=== PATIENT | female | born 1985 | race Caucasian/White ===

== ENCOUNTER 2024-10-08 09:26 | Outpatient (CLI) | payer OTHER, SELFPAY ==
--- NOTE | ~2024-10-08 | XR_ITS ---
Left Shoulder Technique: AP and scapular Y views were obtained. Clinical History: Pain Findings: No fracture or dislocation is seen. Osseous alignment is anatomic. The glenohumeral and acr omioclavicular joint spaces are preserved. Soft tissues are unremarkable. Impression: Unremarkable left shoulder radiographs. Reviewed, dictated and finalized at [facility]. ATOR EQUIPMENT TESTER Impression: Unremarkable left shoulder radiographs.
--- NOTE | ~2024-10-08 | XR_ITS ---
Right Shoulder Technique: AP and scapular Y views were obtained. Clinical History: Pain Findings: No fracture or dislocation is seen. Osseous alignment is anatomic. The glenohumeral and acr omioclavicular joint spaces are preserved. Soft tissues are unremarkable. Impression: Unremarkable right shoulder radiographs. Reviewed, dictated and finalized at [facility]. E BUILDER Impression: Unremarkable right shoulder radiographs.
[2024-10-08 19:20] LABS: Hematocrit 45.6 % (37.0-47.0); Hemoglobin 14.5 g/dL (12.0-15.0); Mean Corpuscular HGB Conc 31.8 g/dl (32-36); Mean Corpuscular Hemoglobin 30.2 pg (26-34); Platelet Count Result 181 k/mm3 (150-375); Red Cell Distribution Width 12.4 % (11.5-14.5); White Blood Count 5.8 K/mm3 (4.5-10.0)
[2024-10-08 19:52] LABS: Erythrocyte Sedimentation Rate 5 mm/hr (0-20)
[2024-10-08 20:43] LABS: Alanine Aminotransferase 15 U/L (6-35); Albumin Level 5.2 g/dL (3.5-5.1); Alkaline Phosphatase 55 U/L (38-126); Anion Gap 8 mmol/L (4-12); Aspartate Amino Transferase 30 U/L (14-36); Bilirubin,Total 0.8 mg/dL (0.2-1.3); Blood Urea Nitrogen 16 mg/dL (7-17); Calcium 10.7 mg/dL (8.4-10.2); Carbon Dioxide 27 mmol/L (22-30); Chloride 104 mmol/L (98-107); Cholesterol 206 mg/dL (0-200); Estimated Glomerular Filt Rate > 60; Glucose 82 mg/dL (65-110); HDL Direct 85 mg/dL; Potassium 4.5 mmol/L (3.4-5.0); Sodium 139 mmol/L (137-145); Triglycerides 68 mg/dL (<150); Uric Acid 5.1 mg/dL (2.5-7.5)
[2024-10-08 20:54] LABS: LDL Cholesterol Direct 91 mg/dL
[2024-10-08 21:11] LABS: Thyroid Stimulating Hormone 0.848 uIU/mL (0.465-4.680)
[2024-10-10 04:04] LABS: ANA Cascade Screen NEGATIVE (NEGATIVE)
== END 2024-10-08 09:27 | disposition home or self-care (01) ==
LOC: ANHBWCLAB 09:31
PROVIDERS: PCP Nurse Practitioner Adult Health; Visit Provider Nurse Practitioner Adult Health
DX: M25.511 Pain in right shoulder (principal); Z13.9 Encounter for screening, unspecified; M25.50 Pain in unspecified joint
CPT/HCPCS: 36415; 73030; 80053; 80061; 84443; 84550; 85027; 85652; 86038; 86225; 86235; 86364

== ENCOUNTER 2024-10-16 07:58 | Outpatient (CLI) | payer OTHER, SELFPAY ==
[2024-10-16 09:13] LABS: Vitamin D 25 Hydroxy 30.3 ng/mL
--- OUTSIDE RECORDS SUMMARY | 2024-10-23 01:19 | XMS_ITS | Clinical Summary ---
Author Organization [facility] Address [address] [place] [address]. [place], [place] [id number] [place] [address] Care Team Providers Care Painting Technician Name Role Phone Marley Mendoza MAI Primary Care Provider [phone] Allergies Active Allergy Reactions Criticality Noted Date Comments Latex Rash Medium 10/30/2019 Medications Multiple Vitamins-Mineral s (MULTIVITAMIN ADULT OR) daily. Active cetirizine 10 MG tablet Take 1 tablet (10 mg total) by mouth daily. Active ALPRAZolam (XANAX) 0.5 MG tabletIndication s:Anxiety Take 1 tablet (0.5 mg total) by mouth nightly as needed for Sleep. 30 tablet 12/07/2022 Active sertraline (ZOLOFT) 25 MG tabletIndication s:Anxiety,Health care maintenance Take 1.5 tablets (37.5 mg total) by mouth daily. 135 tablet 3 09/28/2023 Active acyclovir (ZOVIRAX) 400 MG tabletIndication s:HSV-1 infection Take 1 tablet (400 mg total) by mouth daily. 30 tablet 3 10/29/2023 Active Active Problems Problem Noted Date Diagnosed Date Abnormal uterine bleeding 11/25/2021 Abnormal ultrasound of endometrium 11/25/2021 Anxiety 05/14/2018 Dysmenorrhea 05/14/2018 Endometriosis 05/14/2018 History of female sterilization 05/31/2017 Benign gestational thrombocytopenia ([facility]) 02/12/2017 Immunizations Name Administration Dates Next Due Influenza Adult (Generic) 10/14/2020,06/16/2019 PFIZER COVID-19 (ORIGINAL FO RMULATION, PURPLE CAP) mRNA, LNP-S, PF, 30 MCG/0.3 ML DOSE 10/13/2020,09/22/2020 Tdap (Adacel) 01/26/2017 Tdap (Generic) 10/01/2016 Family History Medical History Relation Comments Cancer Father HPV Cancer Father CHF Maternal Grandmother Depression Mother Hypertension Mother Relation Status Comments Father Maternal Grandmother Mother Social History Tobacco Use Types Packs/Day Years Used Date Smoking Tobacco: Never Smokeless Tobacco: Never Tobacco Cessation:Counseling Given: No Alcohol Use Standard Drinks/Week Comments Yes 3.3 (1 standard drink = 0.6 oz p ure alcohol) PHQ-2 Answer Date Recorded Patient Health Questionnaire-2 Score 1 05/14/2024 Comments No Sex and Gender Information Value Date Recorded Sex Assigned at Not on file Legal Sex Female 10:14 AM CDT Gender Identity Not on file Sexual Orientation Not on file Last Filed Vital Signs Vital Sign Reading Time Taken Comments Blood Pressure 116/70 05/14/2024 10:08 AM CDT Pulse 68 05/14/2024 10:08 AM CDT Temperature 36.7 ??C (98 ??F) 05/14/2024 10: 08 AM CDT Respiratory Rate 16 05/14/2024 10:0 8 AM CDT Oxygen Saturation 97% 05/14/2024 10: 08 AM CDT Inhaled Oxygen Concentration - - Weight 59.3 kg (130 lb 12.8 oz) 024 10:08 AM CDT Height 172.7 cm (5' 8 ) 05/14/2024 10:0 8 AM CDT Body Mass Index 19.89 05/14/2024 10:08 AM CDT Plan of Treatment Health Maintenance Due Date Last Done Comments Cervical Cancer Screening Pap Smear (Age 30 to 64) Every 3 Years 1987 Hepatitis B Vaccines (1 of 3 - 19+ 3-dose series) 2006 COVID-19 Vaccine (2023- season) 2024 10/13/2020, 09/22/2020 Influenza Adult (#1) 2024 10/14/2020, 06/16/20 19 Cervical Cancer Screening Pap with HPV Testing (Age 30 to 64) Every 5 Years 07/30/2024 07/30/2019 Cervical Cancer Screening with HPV 07/30/2024 Annual Physical 05/14/2025 05/14/2024, 12/31, 12/28/2021, Additional history exists PHQ-2 (Physician [place]) 05/14/2025 05/14/2024 DTaP, Tdap and Td Vaccines (3 - Td or Tdap) 01/26/2027 01/26/2017, 10/01/2016 Hepatitis C Completed 12/29/2021 HPV Vaccines Aged Out No longer eligi ble based on patient's age to complete this topic Meningococcal B Vaccine Aged Out No l onger eligible based on patient's age to complete this topic Meningococcal Vaccine Aged Out No bruno onesimo eligible based on patient's age to complete this topic Pneumococcal Vaccine: Pediatrics (0 to 5 Years) and At-Risk Patients (6 to 64 Years) Aged Out No longer eligible based on patient's age to complete this topic RSV Immunizations Under 20 Months Aged Out No longer eligible based on patient's age to complete this topic Procedures Procedure Name Priority Date/Time Associated Diagnosis Comments HEPATITIS C ANTIBODY Routine 12/29/2021 8:03 AM CDT Need for hepatitis C screening test OUTSIDE CYTOPATH CERV/VAG INTERPRET (PAP) 07/30/2019 from Last 3 Months or Most Recently Relevant to Health Maintenance Results * HEPATITIS C ANTIBODY (12/29/2021 8:03 AM CDT) HEPATITIS C AB NON-REACTI VE NON-REACT JOSIE 12/29/2021 8:51 PM CDT [facility] Comment: ANTIBODIES TO HCV NOT DETECTED. DOES NOT EXCLUDE THE POSSIBILITY OF EXPOSURE TO HCV. 12/29/2021 8:03 AM CDT us [facility] Final Result [facility] [address] [place] [address], [id number] * PAP SMEAR WITH HPV (07/30/2019) 07/30/2019 Narrative 07/30/2019 Ordered by an unspecified provider. us Documents Scanned SCANNING Final Result from Last 3 Months or Most Recently Relevant to Health Maintenance [place] [address] [place] [address] [facility] Advance Directives * Full Code (Latest Code Status on File) Date Activated Date Inactivated Comments 11/25/2021 9:58 AM 11/25/2021 3:09 PM Care Teams Painting Technician Relationship Specialty Start Date End Date Marley Mendoza APNP [address] [place] [address] PCP - General NURSE PRACTITIONER 10/30/19
--- OUTSIDE RECORDS SUMMARY | 2024-10-23 01:19 | XMS_ITS | Patient Health Summary ---
Author Organization [facility] Address [address] [place] [address] Care Team Providers Care Slot Supervisor Name Role Phone Alek Turner MD Primary Care Provider Note from [facility],non-owned Affiliates and Associated Physician Practices is amultiple site organization consisting of ambulatory clinics and hospital sitesin [place], [place], [place] and [place]. This disclosure is being madepursuant to the Care Everywhere program and may not contain all information available regarding this patient. Last updated 18.[facility] [employer] Allergies * Latex(Rash) -Medium Criticality Medications * Be aware that medications may not be up to date on this document. Alwaysverify current medications with the patient. * escitalopram (LEXAPRO) 10 MG tablet Take 10 mg by mouth once daily * BUPROPION HCL PO Social History Tobacco Use Types Packs/Day Years Used Date Smoking Tobacco: Never Smokeless Tobacco: Never Sex and Gender Information Value Date Recorded Sex Assigned at Not on file Gender Identity Not on file Sexual Orientation Not on file Last Filed Vital Signs Vital Sign Reading Time Taken Comments Blood Pressure 100/60 03/03/2019 9:14 AM CDT Pulse 84 03/03/2019 9:14 AM CDT Temperature 36.6 ??C (97.9 ??F) 03/03/2019 9:14 AM CD T Respiratory Rate 16 03/03/2019 9:14 AM CDT Oxygen Saturation 97% 03/03/2019 9:14 AM CDT Inhaled Oxygen Concentration - - Weight 54.4 kg (120 lb) 03/03/2019 9:14 AM CDT Height 175.3 cm (5' 9 ) 03/03/2019 9:14 AM CDT Body Mass Index 17.72 03/03/2019 9:14 AM CDT Procedures * CULTURE URINE(Performed 03/03/2019) Performed for Acute cystitis with hematuria * URINALYSIS AUTO - POINT OF CARE (AMB) STL(Performed 03/03/2019) Performed for Acute cystitis with hematuria * STREP A SCREEN - POINT OF CARE (AMB) STL(Performed 12/06/2017) Performed for Nasopharyngitis acute Results * (ABNORMAL) CULTURE URINE (03/03/2019 9:29 AM CDT) Culture (A) [facility] Comment: ??CULTURE, URINE, ROUTINE ?MICRO NUMBER: ?[id number] ??TEST STATUS: ? FINAL ??SPECIMEN SOURCE: ?? URINE, CLEAN CATCH ??SPECIMEN QUALITY: ??ADEQUATE ??RESULT: ?Greater than 100,000 CFU/mL of Klebsiella pneumoniae ?K.pneumoniae ?INT ?? ANA LILIA ?? AMOX/CLAVULANATE ? S ? <=2 ?? AMPICILLIN ? R ? >=32 ?? AMP/SULBACTAM ?S ? 8 ?? CEFAZOLIN ?NR ?<=4 2 ?? CEFEPIME ? S ? <=1 ?? CEFTRIAXONE ?S ? <=1 ?? CIPROFLOXACIN ?S ? <=0.25 ?? ERTAPENEM ?S ? <=0.5 ?? GENTAMICIN ? S ? <=1 ?? IMIPENEM ? S ? <=0.25 ?? LEVOFLOXACIN ? S ? <=0.12 ?? NITROFURANTOIN ? I ? 64 ?? PIP/TAZOBACTAM ? S ? <=4 ?? TOBRAMYCIN ? S ? <=1 ?? TRIMETHOPRIM/SULFA ? S ? <=20 S=Susceptible ??I=Intermediate ??R=Resistant ??* = Not Tested NR = Not Reported ??NN = See Therapy Comments THERAPY COMMENTS ?Note 1: ?For infections other than uncomplicated UTI ?caused by E. coli, K. pneumoniae or P. mirabilis: ?Cefazolin is resistant if ANA LILIA > or = 8 mcg/mL. ?(Distinguishing susceptible versus intermediate ?for isolates with ANA LILIA < or = 4 mcg/mL requires ?additional testing.) ?Note 2: ?For uncomplicated UTI caused by E. coli, ?K. pneumoniae or P. mirabilis: Cefazolin is ?susceptible if ANA LILIA <32 mcg/mL and predicts ?susceptible to the oral agents cefaclor, cefdinir, ?cefpodoxime, cefprozil, cefuroxime, cephalexin ?and loracarbef. Test Performed at: [facility] ??[id number] LOLITA GURROLA MD Urine URINE SPECIMEN OBTAINED BY CLEAN CATCH PROCEDURE / Unknown 03/03/2019 9:29 AM CDT 03/04/2019 1:48 AM CDT Kimberly Alejandre [employer] [facility] - MICROBIOLOG Y ORDERABLES [facility] [address] [address] * (ABNORMAL) URINALYSIS AUTO - POINT OF CARE (AMB) STL (03/03/2019) Clarity UA POCT cloudy Color UA POCT yellow Leukocyte UA mod 125 Negative Nitrite UA POCT neg Negative Urobilinogen UA 0.2 0.1 - 1.0 Protein UA POCT 100++ Negative pH UA 5.0 5.0 - 8.0 pH units Blood UA 3+ Negative Specific [place] UA POCT 1.020 1.002 - 1.030 Ketone UA neg Negative Bilirubin UA POCT neg Negative Glucose UA neg Negative Expiration Date 10/31/20 Lot # [id number] QC Verified Yes Yes Urine URINE / Unknown 03/03/2019 Kimberly Alejandre [employer] [facility] - POINT OF CA RE ORDERABLES * STREP A SCREEN - POINT OF CARE (AMB) STL (12/06/2017) Strep A Rapid POCT Negative Negative Strep A Internal Control Present Lot # [id number] Expiration Date 06/21/19 Throat ENTIRE THROAT (SURFACE REGION OF NECK) / Unknown 12/06/2017 Kimberly Alejandre [employer] [facility] - POINT OF CA RE ORDERABLES Care Teams Slot Supervisor Relationship Specialty Start Date End Date Alek Turner MD [address] [place] [phone] PCP - General Obstetrics and Gynecology 12/06/17
--- OUTSIDE RECORDS SUMMARY | 2024-10-23 01:19 | XMS_ITS | Encounter Summary ---
Author Organization [facility] Address [address] [place] [address]. [place], [place] [id number] [place] [address] Care Team Providers Care Emt B Name Role Phone Marley Mendoza Primary Care Provider [phone] Encounter Details Date Type Department Care Team (Late st Contact Info) Description 05/30/2024 [employer] Message Enc [facility] - [place] [address] [place] [address] Alberto, [facility] Provider Lab results Social History Tobacco Use Types Packs/Day Years Used Date Smoking Tobacco: Never Smokeless Tobacco: Never Alcohol Use Standard Drinks/Week Comments Yes 3.3 (1 standard drink = 0.6 oz p ure alcohol) PHQ-2 Answer Date Recorded Patient Health Questionnaire-2 Score 1 05/14/2024 Comments No Sex and Gender Information Value Date Recorded Sex Assigned at Not on file Legal Sex Female 10:14 AM CDT Gender Identity Not on file Sexual Orientation Not on file documented as of this encounter Plan of Treatment Not on file documented as of this encounter Visit Diagnoses Not on filedocumented in this encounter Additional Health Concerns Assessment Noted Time PHQ-9 Depression Total Score: 2 05/14/20 24 12:02 PM CDT documented as of this encounter Care Teams Emt B Relationship Specialty Start Date End Date Marley Mendoza APNP [address] [place] [address] PCP - General NURSE PRACTITIONER 10/30/19 documented as of this encounter
--- OUTSIDE RECORDS SUMMARY | 2024-10-23 01:19 | XMS_ITS | Clinical Summary ---
Author Organization [facility] [employer] Address [address] [place] [address] Care Team Providers Care Hospital Superintendent Name Role Phone Alek Turner MD Primary Care Provider Source Comments [facility] [employer],non-[facility] Affiliates and Associated Physician Practices is amultiple site organization consisting of ambulatory clinics and hospital sitesin [place], [place], [place] and [place]. This disclosure is being madepursuant to the Care Everywhere program and may not contain all information available regarding this patient. Last updated 18.[facility] [employer] Allergies Active Allergy Reactions Criticality Noted Date Comments Latex Rash Medium Medications * Be aware that medications may not be up to date on this document. Alwaysverify current medications with the patient. Medication Sig Dispensed Refills Start Date End Date Status escitalopram (LEXAPRO) 10 MG tablet Take 10 mg by mouth once daily Active BUPROPION HCL PO Active Social History Tobacco Use Types Packs/Day Years [...] Mass Index 17.72 03/03/2019 9:14 AM CDT Plan of Treatment Health Maintenance Due Date Last Done Comments PAP SMEAR 1987 HIV SCREENING 2002 HEPATITIS C SCREENING 01/25/2005 DTAP/TDAP/TD VACCINES (1 - Tdap) 2006 HEPATITIS B VACCINE (1 of 3 - 19+ 3-dose series) 2006 COVID-19 VACCINE (1 - 2023-2 5 season) 2024 INFLUENZA VACCINE (#1) 2024 DEPRESSION SCREENING 10/01/2024 ZOSTER VACCINE (1 of 2) 2037 HIB VACCINE Aged Out No longer eligi ble based on patient's age to complete this topic HPV VACCINE Aged Out No longer eligi ble based on patient's age to complete this topic MENINGOCOCCAL (Group B) VACCINE Aged Out No longer eligible based on patient's age to complete this topic MENINGOCOCCAL VACCINE Aged Out No bruno onesimo eligible based on patient's age to complete this topic PNEUMOCOCCAL VACCINE Aged Out No long er eligible based on patient's age to complete this topic Care Teams Hospital Superintendent Relationship Specialty Start Date End Date Alek Turner MD [facility] [place] [address] PCP - General Obstetrics and Gynecology 12/06/17
--- OUTSIDE RECORDS SUMMARY | 2024-10-23 01:19 | XMS_ITS | Data Portability ---
Author Organization [facility] [employer] , [facility] Address [address] [place] [address] Assessment No assessment recorded. Plan of Treatment Reminders Order Date Submit Date Provider Last Modified By Organization Details Last Modified Time Details Appointments None recorded. Lab bacterial vaginosis + vaginitis panel, vaginal 2022 023 [employer] [facility], [address] [place], [address], 15:47:18 biopsy, tissue 2022 023 [employer] [facility], [address] [place], [address], 11:08:31 pap, LB 2022 023 [employer] [facility], [address] [place], [address], 14:11:43 HPV E6+E7 mRNA, qualitative PCR, cervix 2022 023 [employer] [facility], [address] [place], [address], 15:47:04 Referral None recorded. Procedures None recorded. Surgeries None recorded. Imaging None recorded. Medication Orders None recorded. Patient TargetsNo targets recorded. Patient InstructionsNo instructions recorded. Reason for Referral None Reported. Results Created Date Observation Date Name Description Value Unit Range Abnormal Flag Note LastModifiedBy Organization Detail LastModifiedTime 07/27/2007/27/2023 TISSU E PATHO LOGY clinical information Polyp Not Available [address] [place], [address], 07/27/2023 11:08:31 07/27/2007/27/2023 TISSU E PATHO LOGY pathologist Amos Mccormick M.D., Board Certi fied in Anato phyllis Patho logy and Clini jose alfredo Patho logy. (elec troni c signa ture) Not Available [address] [place], [address], 07/27/2023 11:08:31 07/27/2007/27/2023 TISSU E PATHO LOGY A source Endoc ervix , biops y Not Available [address] [place], [address], 07/27/2023 11:08:31 07/27/2007/27/2023 TISSU E PATHO LOGY A gross description Speci men is recei viktor in 10% neutr al buffe red forma meaghan, label ed with multi ple patie nt ident ifier s and consi sts of multi ple fragm ents of mucoi d mater ial aggre gatin g to 0.1 x 0.1 x 0.1 cm, irreg ular in shape and yello w-whi te in color . The speci men is entir fortunato submi tted in one casse tte. Gross exam( s) perfo rmed at: [facility] [place] [address] [place] [address] AY, [place] [address] Labor atory Direc tor: TAYE Adorno MD Not Available [address] [address] [place], [address], 07/27/2023 11:08:31 07/27/2007/27/2023 TISSU E PATHO LOGY A diagnosis Fragm ents of benig n endoc ervic al and ectoc ervic al tissu e with blood and mucus , see comme nt. No featu res diagn ostic of dyspl jonn or malig samuel . Not Available [address], [address], 07/27/2023 11:08:31 07/27/2007/27/2023 TISSU E PATHO LOGY A comment This mater ial may repre sent the wall and sophy nts of a polyp oid Nabot hian cyst. NO COLLE CTION DATE RECEI VIKTOR. WE HAVE USED THE DATE THE SPECI MEN WAS RECEI VIKTOR BY THIS LABOR ATORY THE COLLE CTION DATE. IF THIS IS INCOR RECT, PLEAS E CONTA CT CLIEN T SERVI ABDIRASHID. PHONE NUMBE R: [phone] Not Available [address], [address], 07/27/2023 11:08:31 07/28/2007/28/2023 THINP REP TIS PAP clinical information: normal None given Not Available [address], [address], 07/28/2023 14:11:42 07/28/2007/28/2023 THINP REP TIS PAP LMP: normal NONE GIVEN Not Available [address], [address], 07/28/2023 14:11:42 07/28/2007/28/2023 THINP REP TIS PAP prev. Pap: normal NONE GIVEN Not Available [address], [address], 07/28/2023 14:11:42 07/28/2007/28/2023 THINP REP TIS PAP prev. BX: normal NONE GIVEN Not Available [address], [address], 07/28/2023 14:11:42 07/28/2007/28/2023 THINP REP TIS PAP source: normal None given Not Available [address] [place], [address], 07/28/2023 14:11:42 07/28/2007/28/2023 THINP REP TIS PAP statement of adequacy: normal Satis facto ry for evalu ation . Endoc ervic al/tr ansfo rmati on zone compo nent prese nt. Age and/o r menst rual statu s not provi ded Not Available [address] [address] [place], [address], 07/28/2023 14:11:42 07/28/2007/28/2023 THINP REP TIS PAP interpretati on/result: normal Cytol ogy Resul ts: Negat yunier for intra epith elial lesio n or malig samuel . Not Available [address] [address] [place], [address], 07/28/2023 14:11:42 07/28/2007/28/2023 THINP REP TIS PAP comment: normal This Pap test has been evalu ated with compu ter eric trae techn ology . Not Available [address] [place], [address], 07/28/2023 14:11:42 07/28/2007/28/2023 THINP REP TIS PAP cytotechnolo gist: normal SXO, CT( CP) CT Scree jovani Locat ion: [facility] [address] [facility] [place] [address] Not Available [address] [address] [place], [address], 07/28/2023 14:11:42 07/28/2007/28/2023 THINP REP TIS PAP comment EXPLA NATOR Y NOTE: The Pap is a scree jovani test for cervi jose alfredo cance r. It is not a diagn ostic test and is subje ct to false negat yunier and false posit yunier resul ts. It is most relia ble when a satis facto ry sampl e, regul kathie obtai yumiko, is submi tted with relev ant clini jose alfredo findi ngs and histo ry, and when the Pap resul t is evalu ated along with histo loree and curre nt clini jose alfredo infor matio n. NO COLLE CTION DATE RECEI VIKTOR. WE HAVE USED THE DATE THE SPECI MEN WAS RECEI VIKTOR BY THIS LABOR ATORY THE COLLE CTION DATE. IF THIS IS INCOR RECT, PLEAS E CONTA CT CLIEN T SERVI ABDIRASHID. PHONE NUMBE R: [phone] Not Available [employer] [facility] [address], [place], [address], 07/28/2023 14:11:42 07/23/2007/26/2023 HPV HIGH RISK HPV high risk Negati ve negati ve normal The HPV High Risk assay is inten ded for use as co-te sting with cytol ogy and not as a subst itute for regul ar cervi jose alfredo cytol ogy scree jovani. This assay is not inten ded for use as a scree jovani devic e for women under age 30 with edwin l cervi jose alfredo cytol ogy. Not Available [employer] [address] [place] [address], [address], 07/26/2023 15:47:04 07/23/2007/26/2023 VAGIN ITIS PLUS STD PANEL bacterial vaginosis BV neg negati ve normal Not Available [facility] [employer] [address] [place] [address], [address], 07/26/2023 15:47:18 07/23/2007/26/2023 VAGIN ITIS PLUS STD PANEL minal species C. spp neg negati ve normal Not Available [facility] [employer] [address] [place], [address], 07/26/2023 15:47:18 07/23/2007/26/2023 VAGIN ITIS PLUS STD PANEL minal glabrata C. gla neg negati ve normal Not Available [facility] [employer] [address] [place] [address], [address], 07/26/2023 15:47:18 07/23/2007/26/2023 VAGIN ITIS PLUS STD PANEL trichomonas vaginalis CV/TV TRICH neg negati ve normal Not Available [employer] [facility] [address] [place], [address], 07/26/2023 15:47:18 07/23/2007/26/2023 VAGIN ITIS PLUS STD PANEL chlamydia trachomatis CT neg negati ve normal This repor t is inten ded for us in clini jose alfredo monit oring and manag ement of patie nts. It is not inten ded for use in medic al-le gal appli catio n. Not Available [facility] [address] [place], [address], 07/26/2023 15:47:18 07/23/2007/26/2023 VAGIN ITIS PLUS STD PANEL neisseria gonorrhoeae GC neg negati ve normal This repor t is inten ded for us in clini jose alfredo monit oring and manag ement of patie nts. It is not inten ded for use in medic al-le gal appli catio n. Not Available [address], [address], 07/26/2023 15:47:18 Result Notes None recorded. Problems Name Problem SNOMED Code Status Onset Date Resolution Date Notes Provider Name and Address Organization Details Recorded Time Generalize d anxiety disorder 61893060 Active 2018 Generalize d anxiety disorder; Progress: Stable Added By: Mere Barrientos Add to Current Problems: YES ProblemSta tus: Current Not Available [facility] 21:55:47 Problem Notes None recorded. Procedures Surgical History Date Name Laterality Status Provider Name and Address Organization Details Recorded Time 07/23/20 Cervical Polypectomy completed Samuel Cedeno, [address] [facility], [place], [address], [facility] [employer] IV 07/23/2023 17:54:10 08/30/20 Date of Last Pap Smear completed Maya Finn [place] [employer] ([facility]) IV 07/10/2023 11:31:33 LEEP completed Maya Kngine - [facility] IV 07/10/2023 11:31:34 D & C completed Maya [employer] - [facility] IV 07/10/2023 11:31:34 Endometrial Ablation completed Maya [employer] - [facility] IV 07/10/2023 11:31:34 Sterilization completed Maya [employer]ng[employer] - [facility] IV 07/10/2023 11:31:34 Imaging Results None recorded. Procedure Notes None recorded. Medical Equipment None Reported. Allergies Allergen ID Allergen Name Allergen Category Reaction Reaction Severity Criticality Documentation Date Start Date Code Code System Note Provider Name and Address Organization Details Recorded Time [id number] 2824e latex environme nt,medica tion Not available Not available Not available 07/10/2023 95994 91 RxNorm Not Available Not Available Not Available Medications Name Sig Start Date Stop Date Status Note LastModified by Organization Details LastModified Time Lidocaine Viscous 2 % mucosal solution active Not Available Not Available Not Available fluconazo le 150 mg tablet TAKE 1 TABLET BY MOUTH 07/10 completed Not Available Not Available Not Available alprazola m 0.5 mg tablet active Not Available Not Available Not Available sertralin e 25 mg tablet 07/10 completed Not Available Not Available Not Available sertralin e 50 mg tablet TAKE 1 TABLET BY MOUTH EVERY DAY active Not Available Not Available No t Available clindamyc in phosphate 1 % topical solution APPLY TOPICALL Y TO THE AFFECTED AREA TWICE DAILY UNTIL CLEAR THEN APPLY NEEDED FLARE UPS TO LEGS AND TO THE SCALP active Not Available Not Available No t Available Wellbutri n XL 150 mg 24 hr tablet, extended release take 1 tablet (150 mg) by oral route once daily 07/10 completed Wellbutr in XL 150 mg oral Tablet, Extended Release 24 hr RxNorm: 280724 Allow Substitu tion: True Refill Denied: No Edited by: neelam ghosh(Mere Stahl ) on 07/30/20 19 Stopped by: neelam ghosh([facility] Mere delatorre ) on Not Available Not Available Not Available Vitals Date Recorded Body weight Provider Name an d Address Organization Details Last Updated DateTime 07/10/2023 [address].6 [employer] [facility] IV 07/10/2023 11:30:29 Date Recorded Body mass index (BMI) Body height Provider Name and Address Organization Details Last Updated DateTime 07/10/2023 19.9 kg/m2 172.72 cm Maya Finn [place] - [facility] IV 07/10/2023 11:30:43 Date Recorded Body temperature Provider Name a nd Address Organization Details Last Updated DateTime 07/10/2023 97.5 [degF] Maya Finn [place] - [facility] IV 07/10/2023 11:30:55 Date Recorded Body height Provider Name an d Address Organization Details Last Updated DateTime 07/23/2023 172.72 cm Stephanie Holder [facility] IV 07/23/2023 16:31:40 Date Recorded Body mass index (BMI) Body weight Provider Name and Address Organization Details Last Updated DateTime 07/23/2023 198.3 kg/m2 043386.45 g Stephanie Holder [place] - [facility] IV 07/23/2023 16:33:30 Date Recorded Systolic blood pressure Diastolic blood pressure Provider Name and Address Organization Details Last Updated DateTime 07/10/2023 110 mm[Hg] 80 mm[Hg] Maya Finn [place] - [facility] IV 07/10/2023 11:37:23 Date Recorded Systolic blood pressure Diastolic blood pressure Provider Name and Address Organization Details Last Updated DateTime 07/23/2023 120 mm[Hg] 76 mm[Hg] Stephanie Holder [facility] IV 07/23/2023 16:34:48 Social History Question Answer Notes LastModified by Organizat ion Details LastModified Time Tobacco Smoking Status Never Smoker Maya pierce, [place] - [facility] IV 07/10/2023 11:31:34 What Is Your Level Of Alcohol Consumption? Occasional [email or web address] Information not available 07/10/2023 How Many Years Have You Consumed Alcohol? 15 [email or web address] Information not available 07/10/2023 Are You Blind Or Do You Have Difficulty Seeing? No [email or web address] Information not available 07/10/2023 Are You Currently Employed? Yes [email or web address] Information not available 07/10/2023 Are You Deaf Or Do You Have Serious Difficulty Hearing? No [email or web address] Information not available 07/10/2023 What Type Of Diet Are You Following? REGULAR [email or web address] Information not available 07/10/2023 Do You Or Have You Ever Used E-cigarettes Or Vape? Never Used Electronic Cigarettes [email or web address] Information not available 07/10/2023 What Is The Highest Grade Or Level Of School You Have Completed Or The Highest Degree You Have Received? 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 [email or web address] Information not available 07/10/2023 Are You Sexually Active? Yes [email or web address] Information not available 07/10/2023 Do You Or Have You Ever Used Any Other Forms Of Tobacco Or Nicotine? No [email or web address] Information not available 07/10/2023 Sex: Unknown Functional Status Question Answer Note LastModified by Organization D etails LastModified Time What is your exercise level? Moderate [email or web address] Information not available 07/10/2023 Mental Status None recorded. Family History Relationship Description Onset Age of this Age Resolved Age Notes LastModified by Organization Details LastModified Time Mother Hypertensive disorder [email or web address] Not available 2022 11:31:33 Medical History Condition Response Anxiety Disorder Y Seasonal allergies Y Gynecological History Statement/Question Response Date of Last Colonoscopy Date of LMP 11/01/2021 Date of Last Pap Smear 08/30/2021 Most Recent Mammogram Current Control Method Sterilizati on Age at Menarche 16 Obstetrics History GPAL:G 2 P 2 0 0 0 Type Value Full Term 2 Total 2 Past Encounters Encounter ID Performer Location Encounter Start Date Encounter Closed Date Diagnosis/Indication Diagnosis SNOMED-CT Code Diagnosis ICD10 Code Diagnosis Note [id number] RAUL PATEL [facility] [address] [place] [address] 07/10/2023 10:54:30 07/11/2023 12:23:45 Vaginal irritation 312698851 N89.8 Last seen in our office in 2019. Received care from [facility] after that. Will obtain records.Hx of cervical polyp in 2016 with and was removed at delivery.- Had D&C and Ablation in 2021 because they found multiple uterine polyps causing her menorrhagi a.-Comes in today because of severe yeast infection 2 weeks ago and has had vaginal irritation since then. Feels that her cervical polyp might of returned.- Small skin tag noted on vaginal opening on the right side. Patient states it can get irritated. -Spec exam shows cervical to be grossly WNL. Possible scar tissues noted at 6 o'clock of cervical os with a little irritation . No cervical polyp noted on the outside of cervix.-Va ginal culture obtained due to continued vaginal irritation .-Patient will follow up with MD to have another evaluation for cervical polyp. [id number] Samuel Cedeno DO [facility] [address] [place] [address] 07/23/2023 16:30:06 07/24/2023 08:56:47 Acute vaginitis 57024414 N76.0 Screening for malignant neoplasm of cervix 516386807 Z12.4 Polyp of cervix 28181839 N84.1 Health Concerns Section Related Observation LastModified by Organization Detai ls LastModified Time None Recorded Concern Status LastModified by Organization Details LastModified Time None Recorded Advance Directives Directive None Recorded Payers Encounter Date Sequence Insurance Name Policy Number Policy Gooden Covered Member ID Gooden Member ID Guarantor Name 07/10/2023 1 [employer] - [employer] - OPEN ACCESS Emerita Niurka [id number] Emerita Niurka 07/23/2023 1 [employer] - OPEN ACCESS Emerita Bah [id number] Emerita Bah Notes Date Note Type Note Provider Name and Address Organization Details Recorded Time 07/10/2023 text/html Emerita is here because she believes she has a cervical polyp. She states that she is irritated and has a history of this issue. Has had issue for about a month around. Started after a bad yeast infection. KARMEN ANGELES, TELETYPESETTER OPERATOR [address] [place], [address], [facility] [employer] IV 07/10/2023 12:26:13 07/23/2023 text/html Vaginal/Vulvar ProblemReported bypatient.Location:[facility] Quality:irritation Severity:moderate Context:sexually active Alleviating Factors:none Aggravating Factors:none Associated Symptoms:vaginal irritation Samuel Cedeno DO [address] [place], [address], [facility] 07/24/2023 23:39:04 OBGyn Episode No OBEpisode recorded.
--- OUTSIDE RECORDS SUMMARY | 2024-10-23 01:19 | XMS_ITS | Referral Summary ---
Author Organization [facility] [employer] Address [address] [facility] [place] [address] Care Team Providers Care Toy Mechanic Name Role Phone Alek Turner MD Primary Care Provider Source Comments [facility] [employer],non-[facility] Affiliates and Associated Physician Practices is amultiple site organization consisting of ambulatory clinics and hospital sitesin [place] and [place]. This disclosure is being madepursuant to the Care Everywhere program and may not contain all information available regarding this patient. Last updated 18.[facility] [employer] Allergies Active Allergy Reactions Criticality Noted Date [...] 03/03/2019 9:14 AM CDT Plan of Treatment Not on file Care Teams Toy Mechanic Relationship Specialty Start Date End Date Alek Turner MD [facility] [place] [address] PCP - General Obstetrics and Gynecology 12/06/17
--- OUTSIDE RECORDS SUMMARY | 2024-10-23 01:19 | XMS_ITS | Encounter Summary ---
Author Organization [facility] Address [address] [place] [address]. [place] [address] [place] [address] Care Team Providers Care Rickshaw Driver Name Role Phone Marley Mendoza Primary Care Provider [phone] Encounter Details Date Type Department Care Team (Late st Contact Info) Description 10/27/2022 Cabe na Mala [facility] Patient Accounts [address] [place] [address] [facility] Provider Monthly Credit Card Payment Social History Tobacco Use Types Packs/Day Years Used Date Smoking Tobacco: Never Smokeless Tobacco: Never Alcohol Use Standard Drinks/Week Comments Yes 5 (1 standard drink = 0.6 oz pur e alcohol) PHQ-2 Answer Date Recorded PHQ-2 Score - If the patient scores above 3, please move on to questions 3-9 0 12/27/2021 Comments No Sex and Gender Information Value [...] Assessment Noted Time PHQ-9 Depression Total Score: 1 11/30/19 21 1:37 PM BAG INSPECTOR documented as of this encounter Care Teams Rickshaw Driver Relationship Specialty Start Date End Date Marley Mendoza APNP [address] [place] [address] PCP - General NURSE PRACTITIONER 10/30/19 documented as of this encounter
--- OUTSIDE RECORDS SUMMARY | 2024-10-23 01:20 | XMS_ITS | Data Portability ---
[facility] [address] [place] [address] Assessment No assessment recorded. Plan of Treatment Reminders Order Date Submit Date Provider Last Modified By Organization Details Last Modified Time Details Appointments None recorded. Lab urinalysi s, dipstick 2016 017 [email or web address] In-Office Order, Internal Use Only DO Not Attach Compendium DO Not Attach Compendium, Do Not Delete/merge, [id number] 7 13:28:58 urinalysi s, dipstick 2016 017 [email or web address] In-Office Order, Internal Use Only DO Not Attach Compendium DO Not Attach Compendium, Do Not Delete/merge, [id number] 7 09:54:40 pathology study 2016 017 EPHRAIM [facility], [address] [address], [place], [address], 7 16:18:11 urinalysi s, dipstick 2016 017 [email or web address] In-Office Order, Internal Use Only DO Not Attach Compendium DO Not Attach Compendium, Do Not Delete/merge, [id number] 7 18:19:04 test, urine 2016 017 [email or web address] In-Office Order, Internal Use Only DO Not Attach Compendium DO Not Attach Compendium, Do Not Delete/merge, [id number] 7 18:19:04 pap, IG + HPV, cervical 2016 017 EPHRAIM [facility], [address], [place], [address], 7 16:16:17 HSV (1+2) DNA, qual, PCR, unspecifi ed specimen 2016 017 [facility], [address], [place], [address], 7 14:12:57 bacterial vaginosis + vaginitis panel, vaginal 2016 017 SKAM[place]AWA [facility], [address], [place], [address], 7 14:12:56 culture, vaginal/r ectal, streptoco ccus group B 2016 017 [facility], [address], [place], [address], 7 14:12:57 test, [facility] 2016 [facility], Internal Use Only DO Not Attach Compendium DO Not Attach Compendium, Do Not Delete/merge, [id number] 7 11:21:14 urinalysi s, dipstick 2016 017 SKAMOKAWA In-Office Order, Internal Use Only DO Not Attach Compendium DO Not Attach Compendium, Do Not Delete/merge, [id number] 7 17:33:48 pap, IG + HPV, cervical 2017 018 [facility], [address], [place], [address], 8 08:34:26 bacterial vaginosis + vaginitis panel, vaginal 2017 018 [facility], [address], [place], [address], 8 06:06:15 HSV (1+2) DNA, qual, PCR, unspecifi ed specimen 2017 018 [facility], [address], [place], [address], 8 20:00:24 culture, vaginal/r ectal, streptoco ccus group B 2017 018 SKAMOKAWA [facility], [address], [place], [address], 8 06:06:16 urinalysi s, dipstick [address] [facility] In-Office Order, Internal Use Only DO Not Attach Compendium DO Not Attach Compendium, Do Not Delete/merge, [id number] 8 14:02:20 Referral None recorded. Procedures None recorded. Surgeries None recorded. Imaging None recorded. Medication Orders escitalop yosi 10 mg tablet 2016 017 [facility], [address], [place], [address], 7 17:40:36 multivita min tablet 2017 018 [facility], [address] , [place], [place], [id number], 8 12:45:53 calcium 600 mg (as carbonate )-vitamin D3 20 mcg (800 unit) tablet 2017 018 INTERFACE [facility] #05780, [address], [place], [place], [id number], 8 12:46:20 Lexapro 20 mg tablet 2017 018 [facility] #90014, [address] , [place], [place], [id number], 8 12:45:52 Orilissa 150 mg tablet 2017 018 [facility], [address], [place], [place], [id number], 8 12:45:53 Patient TargetsNo targets recorded. Patient Instructions Encounter Date Encounter Id Patient Instructions Last Modified By Organization Details Last Modified Time 05/08/2017 [id number] anxiety disorder: care instructions [email or web address] Not available 05/08/2017 17:40:36 05/14/2018 [id number] painful menstrual cramps: care instructions mwasserman Not available 05/14/2018 12:45:46 endometriosis: care instructions mwasserman Not available 05/14/2018 12:45:46 Reason for Referral None Reported. Results Created Date Observation Date Name Description Value Unit Range Abnormal Flag Note LastModifiedBy Organization Detail LastModifiedTime 05/14/20 18 05/14/2018 urina lysis , dipst ick Leukocytes Negati ve Not Available In-Office Order Internal Use Only DO Not Attach Compendium DO Not Attach Compendium, Do Not Delete/merge, [id number] 05/14/2018 11:55:24 05/14/20 18 05/14/2018 urina lysis , dipst ick Nitrite negati ve Not Available In-Office Order Internal Use Only DO Not Attach Compendium DO Not Attach Compendium, Do Not Delete/merge, [id number] 05/14/2018 11:55:24 05/14/20 18 05/14/2018 urina lysis , dipst ick Urobilinogen .2 Not Available In-Of fice Order Internal Use Only DO Not Attach Compendium DO Not Attach Compendium, Do Not Delete/merge, [id number] 05/14/2018 11:55:24 05/14/20 18 05/14/2018 urina lysis , dipst ick Protein Negati ve Not Available In-Office Order Internal Use Only DO Not Attach Compendium DO Not Attach Compendium, Do Not Delete/merge, [id number] 05/14/2018 11:55:24 05/14/20 18 05/14/2018 urina lysis , dipst ick pH 6.0 Not Available In-Office Order Internal Use Only DO Not Attach Compendium DO Not Attach Compendium, Do Not Delete/merge, [id number] 05/14/2018 11:55:24 05/14/20 18 05/14/2018 urina lysis , dipst ick Blood Negati ve Not Available In-Office Order Internal Use Only DO Not Attach Compendium DO Not Attach Compendium, Do Not Delete/merge, 05/14/2018 11:55:24 05/14/20 18 05/14/2018 urina lysis , dipst ick Specific Benson 1.025 Not Available In-Off ice Order Internal Use Only DO Not Attach Compendium DO Not Attach Compendium, Do Not Delete/merge, 05/14/2018 11:55:24 05/14/20 18 05/14/2018 urina lysis , dipst ick Ketone Negati ve Not Available In-Office Order Internal Use Only DO Not Attach Compendium DO Not Attach Compendium, Do Not Delete/merge, 05/14/2018 11:55:24 05/14/20 18 05/14/2018 urina lysis , dipst ick Bilirubin Negati ve Not Available In-Office Order Internal Use Only DO Not Attach Compendium DO Not Attach Compendium, Do Not Delete/merge, 05/14/2018 11:55:24 05/14/20 18 05/14/2018 urina lysis , dipst ick Glucose Negati ve Not Available In-Office Order Internal Use Only DO Not Attach Compendium DO Not Attach Compendium, Do Not Delete/merge, 05/14/2018 11:55:24 05/31/20 17 06/01/2017 urina lysis , dipst ick Leukocytes Small Not Available In-Offi ce Order Internal Use Only DO Not Attach Compendium DO Not Attach Compendium, Do Not Delete/merge, 05/31/2017 18:11:42 05/31/2006/01/2017 urina lysis , dipst ick Nitrite negati ve Not Available In-Office Order Internal Use Only DO Not Attach Compendium DO Not Attach Compendium, Do Not Delete/merge, 05/31/2017 18:11:42 05/31/2006/01/2017 urina lysis , dipst ick Urobilinogen .2 Not Available In-Of fice Order Internal Use Only DO Not Attach Compendium DO Not Attach Compendium, Do Not Delete/merge, 05/31/2017 18:11:42 05/31/20 17 06/01/2017 urina lysis , dipst ick Protein Negati ve Not Available In-Office Order Internal Use Only DO Not Attach Compendium DO Not Attach Compendium, Do Not Delete/merge, 05/31/2017 18:11:42 05/31/20 17 06/01/2017 urina lysis , dipst ick pH 5.5 Not Available In-Office Order Internal Use Only DO Not Attach Compendium DO Not Attach Compendium, Do Not Delete/merge, 05/31/2017 18:11:42 05/31/2006/01/2017 urina lysis , dipst ick Blood Hemoly zed: Trace Not Available In-Office Order Internal Use Only DO Not Attach Compendium DO Not Attach Compendium, Do Not Delete/merge, 05/31/2017 18:11:42 05/31/20 17 06/01/2017 urina lysis , dipst ick Specific Benson 1.020 Not Available In-Off ice Order Internal Use Only DO Not Attach Compendium DO Not Attach Compendium, Do Not Delete/merge, 05/31/2017 18:11:42 05/31/2006/01/2017 urina lysis , dipst ick Ketone Negati ve Not Available In-Office Order Internal Use Only DO Not Attach Compendium DO Not Attach Compendium, Do Not Delete/merge, 05/31/2017 18:11:42 05/31/2006/01/2017 urina lysis , dipst ick Bilirubin Negati ve Not Available In-Office Order Internal Use Only DO Not Attach Compendium DO Not Attach Compendium, Do Not Delete/merge, 05/31/2017 18:11:42 05/31/2006/01/2017 urina lysis , dipst ick Glucose Negati ve Not Available In-Office Order Internal Use Only DO Not Attach Compendium DO Not Attach Compendium, Do Not Delete/merge, 05/31/2017 18:11:42 05/31/20 17 06/01/2017 urina lysis , dipst ick Appearance Clear Not Available In-Offi ce Order Internal Use Only DO Not Attach Compendium DO Not Attach Compendium, Do Not Delete/merge, [id number] 05/31/2017 18:11:42 05/31/20 17 06/01/2017 urina lysis , dipst ick Color Yellow Not Available In-Office Order Internal Use Only DO Not Attach Compendium DO Not Attach Compendium, Do Not Delete/merge, [id number] 05/31/2017 18:11:42 05/31/20 17 05/31/2017 pregn lorraine test, urine HCG negati ve Not Available In-Office Order Internal Use Only DO Not Attach Compendium DO Not Attach Compendium, Do Not Delete/merge, [id number] 05/31/2017 10:48:58 05/08/20 17 05/08/2017 pregn lorraine test, urine HCG negati ve Not Available In-Office Order Internal Use Only DO Not Attach Compendium DO Not Attach Compendium, Do Not Delete/merge, [id number] 05/08/2017 16:43:10 05/08/20 17 05/08/2017 urina lysis , dipst ick Leukocytes Negati ve Not Available In-Office Order Internal Use Only DO Not Attach Compendium DO Not Attach Compendium, Do Not Delete/merge, [id number] 05/08/2017 16:42:16 05/08/20 17 05/08/2017 urina lysis , dipst ick Nitrite negati ve Not Available In-Office Order Internal Use Only DO Not Attach Compendium DO Not Attach Compendium, Do Not Delete/merge, [id number] 05/08/2017 16:42:16 05/08/20 17 05/08/2017 urina lysis , dipst ick Urobilinogen .2 Not Available In-Of fice Order Internal Use Only DO Not Attach Compendium DO Not Attach Compendium, Do Not Delete/merge, [id number] 05/08/2017 16:42:16 05/08/20 17 05/08/2017 urina lysis , dipst ick Protein Negati ve Not Available In-Office Order Internal Use Only DO Not Attach Compendium DO Not Attach Compendium, Do Not Delete/merge, [id number] 05/08/2017 16:42:16 05/08/20 17 05/08/2017 urina lysis , dipst ick pH 5.5 Not Available In-Office Order Internal Use Only DO Not Attach Compendium DO Not Attach Compendium, Do Not Delete/merge, 05/08/2017 16:42:16 05/08/20 17 05/08/2017 urina lysis , dipst ick Blood Small Not Available In-Office Order Internal Use Only DO Not Attach Compendium DO Not Attach Compendium, Do Not Delete/merge, 05/08/2017 16:42:16 05/08/20 17 05/08/2017 urina lysis , dipst ick Specific Benson 1.025 Not Available In-Off ice Order Internal Use Only DO Not Attach Compendium DO Not Attach Compendium, Do Not Delete/merge, 05/08/2017 16:42:16 05/08/20 17 05/08/2017 urina lysis , dipst ick Ketone Negati ve Not Available In-Office Order Internal Use Only DO Not Attach Compendium DO Not Attach Compendium, Do Not Delete/merge, 05/08/2017 16:42:16 05/08/20 17 05/08/2017 urina lysis , dipst ick Bilirubin Negati ve Not Available In-Office Order Internal Use Only DO Not Attach Compendium DO Not Attach Compendium, Do Not Delete/merge, 05/08/2017 16:42:16 05/08/20 17 05/08/2017 urina lysis , dipst ick Glucose Negati ve Not Available In-Office Order Internal Use Only DO Not Attach Compendium DO Not Attach Compendium, Do Not Delete/merge, 05/08/2017 16:42:16 03/28/20 17 03/28/2017 urina lysis , dipst ick Leukocytes Small Not Available In-Offi ce Order Internal Use Only DO Not Attach Compendium DO Not Attach Compendium, Do Not Delete/merge, 03/28/2017 12:37:30 03/28/20 17 03/28/2017 urina lysis , dipst ick Nitrite negati ve Not Available In-Office Order Internal Use Only DO Not Attach Compendium DO Not Attach Compendium, Do Not Delete/merge, 03/28/2017 12:37:30 03/28/20 17 03/28/2017 urina lysis , dipst ick Urobilinogen .2 Not Available In-Of fice Order Internal Use Only DO Not Attach Compendium DO Not Attach Compendium, Do Not Delete/merge, 03/28/2017 12:37:30 03/28/20 17 03/28/2017 urina lysis , dipst ick Protein Negati ve Not Available In-Office Order Internal Use Only DO Not Attach Compendium DO Not Attach Compendium, Do Not Delete/merge, 03/28/2017 12:37:30 03/28/20 17 03/28/2017 urina lysis , dipst ick pH 7.0 Not Available In-Office Order Internal Use Only DO Not Attach Compendium DO Not Attach Compendium, Do Not Delete/merge, 03/28/2017 12:37:30 03/28/20 17 03/28/2017 urina lysis , dipst ick Blood Negati ve Not Available In-Office Order Internal Use Only DO Not Attach Compendium DO Not Attach Compendium, Do Not Delete/merge, 03/28/2017 12:37:30 03/28/20 17 03/28/2017 urina lysis , dipst ick Specific Benson 1.015 Not Available In-Off ice Order Internal Use Only DO Not Attach Compendium DO Not Attach Compendium, Do Not Delete/merge, 03/28/2017 12:37:30 03/28/20 17 03/28/2017 urina lysis , dipst ick Ketone Negati ve Not Available In-Office Order Internal Use Only DO Not Attach Compendium DO Not Attach Compendium, Do Not Delete/merge, 03/28/2017 12:37:30 03/28/20 17 03/28/2017 urina lysis , dipst ick Bilirubin Negati ve Not Available In-Office Order Internal Use Only DO Not Attach Compendium DO Not Attach Compendium, Do Not Delete/merge, 03/28/2017 12:37:30 03/28/2003/28/2017 urina lysis , dipst ick Glucose Negati ve Not Available In-Office Order Internal Use Only DO Not Attach Compendium DO Not Attach Compendium, Do Not Delete/merge, 03/28/2017 12:37:30 03/21/20 17 03/21/2017 urina lysis , dipst ick Leukocytes Small Not Available In-Offi ce Order Internal Use Only DO Not Attach Compendium DO Not Attach Compendium, Do Not Delete/merge, 03/21/2017 12:39:08 03/21/20 17 03/21/2017 urina lysis , dipst ick Nitrite negati ve Not Available In-Office Order Internal Use Only DO Not Attach Compendium DO Not Attach Compendium, Do Not Delete/merge, 03/21/2017 12:39:08 03/21/20 17 03/21/2017 urina lysis , dipst ick Urobilinogen .2 Not Available In-Of fice Order Internal Use Only DO Not Attach Compendium DO Not Attach Compendium, Do Not Delete/merge, 03/21/2017 12:39:08 03/21/20 17 03/21/2017 urina lysis , dipst ick Protein Negati ve Not Available In-Office Order Internal Use Only DO Not Attach Compendium DO Not Attach Compendium, Do Not Delete/merge, 03/21/2017 12:39:08 03/21/20 17 03/21/2017 urina lysis , dipst ick pH 7.0 Not Available In-Office Order Internal Use Only DO Not Attach Compendium DO Not Attach Compendium, Do Not Delete/merge, 03/21/2017 12:39:08 03/21/20 17 03/21/2017 urina lysis , dipst ick Blood Negati ve Not Available In-Office Order Internal Use Only DO Not Attach Compendium DO Not Attach Compendium, Do Not Delete/merge, 03/21/2017 12:39:08 03/21/20 17 03/21/2017 urina lysis , dipst ick Specific Benson 1.015 Not Available In-Off ice Order Internal Use Only DO Not Attach Compendium DO Not Attach Compendium, Do Not Delete/merge, 03/21/2017 12:39:08 03/21/20 17 03/21/2017 urina lysis , dipst ick Ketone Negati ve Not Available In-Office Order Internal Use Only DO Not Attach Compendium DO Not Attach Compendium, Do Not Delete/merge, 03/21/2017 12:39:08 03/21/20 17 03/21/2017 urina lysis , dipst ick Bilirubin Negati ve Not Available In-Office Order Internal Use Only DO Not Attach Compendium DO Not Attach Compendium, Do Not Delete/merge, 03/21/2017 12:39:08 03/21/20 17 03/21/2017 urina lysis , dipst ick Glucose Negati ve Not Available In-Office Order Internal Use Only DO Not Attach Compendium DO Not Attach Compendium, Do Not Delete/merge, 03/21/2017 12:39:08 03/14/20 17 03/14/2017 urina lysis , dipst ick Leukocytes Modera te Not Available In-Office Order Internal Use Only DO Not Attach Compendium DO Not Attach Compendium, Do Not Delete/merge, 03/14/2017 11:11:42 03/14/20 17 03/14/2017 urina lysis , dipst ick Nitrite negati ve Not Available In-Office Order Internal Use Only DO Not Attach Compendium DO Not Attach Compendium, Do Not Delete/merge, 03/14/2017 11:11:42 03/14/20 17 03/14/2017 urina lysis , dipst ick Urobilinogen .2 Not Available In-Of fice Order Internal Use Only DO Not Attach Compendium DO Not Attach Compendium, Do Not Delete/merge, 03/14/2017 11:11:42 03/14/20 17 03/14/2017 urina lysis , dipst ick Protein Negati ve Not Available In-Office Order Internal Use Only DO Not Attach Compendium DO Not Attach Compendium, Do Not Delete/merge, 03/14/2017 11:11:42 03/14/20 17 03/14/2017 urina lysis , dipst ick pH 7.0 Not Available In-Office Order Internal Use Only DO Not Attach Compendium DO Not Attach Compendium, Do Not Delete/merge, 03/14/2017 11:11:42 03/14/20 17 03/14/2017 urina lysis , dipst ick Blood Negati ve Not Available In-Office Order Internal Use Only DO Not Attach Compendium DO Not Attach Compendium, Do Not Delete/merge, 03/14/2017 11:11:42 03/14/20 17 03/14/2017 urina lysis , dipst ick Specific Benson 1.020 Not Available In-Off ice Order Internal Use Only DO Not Attach Compendium DO Not Attach Compendium, Do Not Delete/merge, 03/14/2017 11:11:42 03/14/20 17 03/14/2017 urina lysis , dipst ick Ketone Negati ve Not Available In-Office Order Internal Use Only DO Not Attach Compendium DO Not Attach Compendium, Do Not Delete/merge, 03/14/2017 11:11:42 03/14/20 17 03/14/2017 urina lysis , dipst ick Bilirubin Negati ve Not Available In-Office Order Internal Use Only DO Not Attach Compendium DO Not Attach Compendium, Do Not Delete/merge, 03/14/2017 11:11:42 03/14/20 17 03/14/2017 urina lysis , dipst ick Glucose Negati ve Not Available In-Office Order Internal Use Only DO Not Attach Compendium DO Not Attach Compendium, Do Not Delete/merge, 03/14/2017 11:11:42 02/29/20 17 02/28/2017 urina lysis , dipst ick Leukocytes Small Not Available In-Offi ce Order Internal Use Only DO Not Attach Compendium DO Not Attach Compendium, Do Not Delete/merge, 02/28/2017 11:22:30 02/29/20 17 02/28/2017 urina lysis , dipst ick Nitrite negati ve Not Available In-Office Order Internal Use Only DO Not Attach Compendium DO Not Attach Compendium, Do Not Delete/merge, 02/28/2017 11:22:30 02/29/20 17 02/28/2017 urina lysis , dipst ick Urobilinogen .2 Not Available In-Of fice Order Internal Use Only DO Not Attach Compendium DO Not Attach Compendium, Do Not Delete/merge, 02/28/2017 11:22:30 02/29/2002/28/2017 urina lysis , dipst ick Protein Negati ve Not Available In-Office Order Internal Use Only DO Not Attach Compendium DO Not Attach Compendium, Do Not Delete/merge, 02/28/2017 11:22:30 02/29/2002/28/2017 urina lysis , dipst ick pH 7.0 Not Available In-Office Order Internal Use Only DO Not Attach Compendium DO Not Attach Compendium, Do Not Delete/merge, 02/28/2017 11:22:30 02/29/2002/28/2017 urina lysis , dipst ick Blood Negati ve Not Available In-Office Order Internal Use Only DO Not Attach Compendium DO Not Attach Compendium, Do Not Delete/merge, 02/28/2017 11:22:30 02/29/2002/28/2017 urina lysis , dipst ick Specific Benson 1.015 Not Available In-Off ice Order Internal Use Only DO Not Attach Compendium DO Not Attach Compendium, Do Not Delete/merge, 02/28/2017 11:22:30 02/29/2002/28/2017 urina lysis , dipst ick Ketone Negati ve Not Available In-Office Order Internal Use Only DO Not Attach Compendium DO Not Attach Compendium, Do Not Delete/merge, 02/28/2017 11:22:30 02/29/2002/28/2017 urina lysis , dipst ick Bilirubin Negati ve Not Available In-Office Order Internal Use Only DO Not Attach Compendium DO Not Attach Compendium, Do Not Delete/merge, 02/28/2017 11:22:30 02/29/2002/28/2017 urina lysis , dipst ick Glucose Negati ve Not Available In-Office Order Internal Use Only DO Not Attach Compendium DO Not Attach Compendium, Do Not Delete/merge, 02/28/2017 11:22:30 02/13/2002/12/2017 urina lysis , dipst ick Leukocytes Small Not Available In-Offi ce Order Internal Use Only DO Not Attach Compendium DO Not Attach Compendium, Do Not Delete/merge, 02/12/2017 14:06:01 02/13/20 17 02/12/2017 urina lysis , dipst ick Nitrite negati ve Not Available In-Office Order Internal Use Only DO Not Attach Compendium DO Not Attach Compendium, Do Not Delete/merge, 02/12/2017 14:06:01 02/13/20 17 02/12/2017 urina lysis , dipst ick Urobilinogen .2 Not Available In-Of fice Order Internal Use Only DO Not Attach Compendium DO Not Attach Compendium, Do Not Delete/merge, 02/12/2017 14:06:01 02/13/20 17 02/12/2017 urina lysis , dipst ick Protein Negati ve Not Available In-Office Order Internal Use Only DO Not Attach Compendium DO Not Attach Compendium, Do Not Delete/merge, 02/12/2017 14:06:01 02/13/20 17 02/12/2017 urina lysis , dipst ick pH 7.0 Not Available In-Office Order Internal Use Only DO Not Attach Compendium DO Not Attach Compendium, Do Not Delete/merge, 02/12/2017 14:06:01 02/13/20 17 02/12/2017 urina lysis , dipst ick Blood Negati ve Not Available In-Office Order Internal Use Only DO Not Attach Compendium DO Not Attach Compendium, Do Not Delete/merge, 02/12/2017 14:06:01 02/13/20 17 02/12/2017 urina lysis , dipst ick Specific Benson 1.015 Not Available In-Off ice Order Internal Use Only DO Not Attach Compendium DO Not Attach Compendium, Do Not Delete/merge, 02/12/2017 14:06:01 02/13/20 17 02/12/2017 urina lysis , dipst ick Ketone Negati ve Not Available In-Office Order Internal Use Only DO Not Attach Compendium DO Not Attach Compendium, Do Not Delete/merge, 02/12/2017 14:06:01 02/13/20 17 02/12/2017 urina lysis , dipst ick Bilirubin Negati ve Not Available In-Office Order Internal Use Only DO Not Attach Compendium DO Not Attach Compendium, Do Not Delete/merge, 02/12/2017 14:06:01 02/13/20 17 02/12/2017 urina lysis , dipst ick Glucose Negati ve Not Available In-Office Order Internal Use Only DO Not Attach Compendium DO Not Attach Compendium, Do Not Delete/merge, 02/12/2017 14:06:01 02/13/20 17 02/12/2017 urina lysis , dipst ick Leukocytes Small Not Available In-Offi ce Order Internal Use Only DO Not Attach Compendium DO Not Attach Compendium, Do Not Delete/merge, 02/12/2017 11:44:06 02/13/20 17 02/12/2017 urina lysis , dipst ick Nitrite negati ve Not Available In-Office Order Internal Use Only DO Not Attach Compendium DO Not Attach Compendium, Do Not Delete/merge, 02/12/2017 11:44:06 02/13/20 17 02/12/2017 urina lysis , dipst ick Urobilinogen .2 Not Available In-Of fice Order Internal Use Only DO Not Attach Compendium DO Not Attach Compendium, Do Not Delete/merge, 02/12/2017 11:44:06 02/13/20 17 02/12/2017 urina lysis , dipst ick Protein Negati ve Not Available In-Office Order Internal Use Only DO Not Attach Compendium DO Not Attach Compendium, Do Not Delete/merge, 02/12/2017 11:44:06 02/13/20 17 02/12/2017 urina lysis , dipst ick pH 7.0 Not Available In-Office Order Internal Use Only DO Not Attach Compendium DO Not Attach Compendium, Do Not Delete/merge, 02/12/2017 11:44:06 02/13/20 17 02/12/2017 urina lysis , dipst ick Blood Negati ve Not Available In-Office Order Internal Use Only DO Not Attach Compendium DO Not Attach Compendium, Do Not Delete/merge, [id number] 02/12/2017 11:44:06 02/13/20 17 02/12/2017 urina lysis , dipst ick Specific Benson 1.015 Not Available In-Off ice Order Internal Use Only DO Not Attach Compendium DO Not Attach Compendium, Do Not Delete/merge, 02/12/2017 11:44:06 02/13/20 17 02/12/2017 urina lysis , dipst ick Ketone Negati ve Not Available In-Office Order Internal Use Only DO Not Attach Compendium DO Not Attach Compendium, Do Not Delete/merge, 02/12/2017 11:44:06 02/13/20 17 02/12/2017 urina lysis , dipst ick Bilirubin Negati ve Not Available In-Office Order Internal Use Only DO Not Attach Compendium DO Not Attach Compendium, Do Not Delete/merge, 02/12/2017 11:44:06 02/13/20 17 02/12/2017 urina lysis , dipst ick Glucose Negati ve Not Available In-Office Order Internal Use Only DO Not Attach Compendium DO Not Attach Compendium, Do Not Delete/merge, 02/12/2017 11:44:06 03/14/20 17 03/15/2017 RPR (rapi d plasm a reagi n), serum RPR NON REACTI VE non reacti ve Not Available [facility] ([facility]) [address] [place], [address], 03/15/2017 06:07:40 03/14/20 17 03/15/2017 HIV 1+2 AB + HIV 1 p24 Ag, quali tativ e immun oassa y, serum HIV screen 4TH generation wrfx NON REACTI VE non reacti ve Not Available [facility] ([facility]) [address] [place], [address], 03/15/2017 06:07:40 03/14/20 17 03/15/2017 HBsAg (hepa titis B surfa ce Ag), EIA, serum HBsAg screen NEGATI VE negati ve Not Available [facility] ([facility]) [address] [place], [address], 03/15/2017 06:07:41 03/14/20 17 03/17/2017 bacte rial vagin osis + vagin itis panel , vagin al atopobium vaginae LOW - 0 score Not Available [facility] ([facility]) [address] [place], [address], 03/18/2017 06:04:51 03/14/20 17 03/17/2017 bacte rial vagin osis + vagin itis panel , vagin al bvab 2 LOW - 0 score Not Available [facility] ([facility]) [address] [place], [address], 03/18/2017 06:04:51 03/14/2003/17/2017 bacte rial vagin osis + vagin itis panel , vagin al megasphaera 1 LOW - 0 score CALCU LATE TOTAL SCORE BY CHAD Siddiqui THE 3 INDIV IDUAL BACTE RIAL VAGIN OSIS (BV) MARKE R SCORE S TOGET HER. TOTAL SCORE IS INTER PRETE D FOLLO WS: TOTAL SCORE 0-1: INDIC ATES THE ABSEN CE OF BV. TOTAL SCORE 2: INDET ERMIN ATE FOR BV. ADDIT IONAL CLINI DANTE DATA SHOUL D BE EVALU ATED TO ESTAB BUD A DIAGN OSIS. TOTAL SCORE 3-6: INDIC ATES THE PRESE NCE OF BV. THIS TEST WAS DEVEL OPED AND ITS PERFO RMANC E SOFIA CTERI STICS DETER MINED BY [facility]. IT HAS NOT BEEN CLEAR ED OR APPRO VIKTOR BY THE FOOD AND DRUG ADMIN ISTRA TION. THE FDA HAS DETER MINED THAT SUCH CLEAR ANCE OR APPRO DANNY IS NOT NECES JAKE. Not Available [facility] ([facility]) [address] [facility], [place], [address], 03/18/2017 06:04:51 03/14/20 17 03/18/2017 bacte rial vagin osis + vagin itis panel , vagin al minal albicans, SHANELLE NEGATI VE negati ve Not Available [facility] ([facility]) [address] [place], [address], 03/18/2017 06:04:51 03/14/20 17 03/18/2017 bacte rial vagin osis + vagin itis panel , vagin al minal glabrata, SHANELLE NEGATI VE negati ve THIS TEST WAS DEVEL OPED AND ITS PERFO RMANC E SOFIA CTERI STICS DETER MINED BY [facility]. IT HAS NOT BEEN CLEAR ED OR APPRO VIKTOR BY THE FOOD AND DRUG ADMIN ISTRA TION. THE FDA HAS DETER MINED THAT SUCH CLEAR ANCE OR APPRO DANNY IS NOT NECES JAKE. Not Available [facility] ([facility]) [address] [facility], [place], [address], 03/18/2017 06:04:51 03/14/20 17 03/18/2017 bacte rial vagin osis + vagin itis panel , vagin al trich vag by SHANELLE NEGATI VE negati ve Not Available [facility] ([facility]) [address] [place], [address], 03/18/2017 06:04:51 03/14/20 17 03/18/2017 bacte rial vagin osis + vagin itis panel , vagin al chlamydia trachomatis, SHANELLE NEGATI VE negati ve Not Available [facility] ([facility]) [address] [place], [address], 03/18/2017 06:04:51 03/14/20 17 03/18/2017 bacte rial vagin osis + vagin itis panel , vagin al neisseria gonorrhoeae, SHANELLE NEGATI VE negati ve Not Available [facility] ([facility]) [address] [place], [address], 03/18/2017 06:04:51 03/14/20 17 03/16/2017 HSV (1+2) DNA, qual, PCR, unspe cifie d speci men hsv 1 SHANELLE NEGATI VE negati ve Not Available [facility] ([facility]) [address] [place], [address], 03/18/2017 06:04:51 03/14/20 17 03/16/2017 HSV (1+2) DNA, qual, PCR, unspe cifie d speci men hsv 2 SHANELLE NEGATI VE negati ve Not Available [facility] ([facility]) [address] [place], [address], 03/18/2017 06:04:51 03/14/20 17 03/15/2017 RPR (rapi d plasm a reagi n), serum RPR TNP PLEAS E REFER TO THE FOLLO WING SPECI MEN FOR ADDIT IONAL LAB RESUL TS. SEE: [id number] 36-0 Not Available [facility] ([facility]) [address] [place], [address], 03/18/2017 06:04:52 03/14/20 17 03/15/2017 HIV 1+2 AB + HIV 1 p24 Ag, quali tativ e immun oassa y, serum HIV screen 4TH generation wrfx TNP PLEAS E REFER TO THE FOLLO WING SPECI MEN FOR ADDIT IONAL LAB RESUL TS. SEE: 165-3 36-0 Not Available [facility] ([facility]) [address] [place], [address], 03/18/2017 06:04:52 03/14/20 17 03/16/2017 cultu re, vagin al/re ctal, strep tococ cus group B strep gp B SHANELLE NEGATI VE negati ve [facility] FOR DISEA SE CONTR OL AND PREVE NTION (CDC) AND AMERI CAN CONGR ESS OF OBSTE TRICI ANS AND GYNEC OLOGI STS (ACOG ) GUIDE LINES FOR PREVE NTION OF PERIN ATAL GROUP B STREP TOCOC DANTE (GBS) DISEA SE SPECI FY CO-CO LLECT ION OF A VAGIN AL AND RECTA L SWAB SPECI MEN TO MAXIM IZE SENSI TIVIT Y OF GBS DETEC TION. PER THE CDC AND ACOG, SWABB ING BOTH THE LOWER VAGIN A AND RECTU M SUBST ANTIA LLY INCRE ASES THE YIELD OF DETEC TION EJ RED WITH SAMPL ING THE VAGIN A ALONE . PENIC ILLIN G, AMPIC ILLIN , OR CEFAZ MARY ARE INDIC ATED FOR INTRA PARTU M PROPH YLAXI S OF PERIN ATAL GBS COLON IZATI ON. REFLE X SUSCE PTIBI LITY TESTI NG SHOUL D BE PERFO RMED PRIOR TO USE OF CLIND AMYCI N ONLY ON GBS ISOLA ERICK FROM PENIC ILLIN -MIGDALIA RGIC WOMEN WHO ARE CONSI DERED A HIGH RISK FOR ANAPH YLAXI S. TREAT MENT WITH VANCO MYCIN WITHO UT ADDIT IONAL TESTI NG IS WARRA NTED IF RESIS TANCE TO CLIND AMYCI N IS NOTED . Not Available [facility] ([facility]) [address] [place], [address], 03/18/2017 06:04:52 03/14/20 17 03/15/2017 HBsAg (hepa titis B surfa ce Ag), EIA, serum HBsAg screen TNP PLEAS E REFER TO THE FOLLO WING SPECI MEN FOR ADDIT IONAL LAB RESUL TS. SEE: 165-3 36-0 Not Available [facility] ([facility]) [address] [facility], [place], [address], 03/18/2017 06:04:53 03/14/20 17 03/15/2017 speci men statu s repor t specimen status report TNP PLEAS E REFER TO THE FOLLO WING SPECI MEN FOR ADDIT IONAL LAB RESUL TS. TEST: [id number] RPR, RF[place] Q[place]PR/[place] [address] 5 PANEL 31537 5 [id number] 0 HBSAG SCREE N SEE: 165-3 36-0 Not Available [facility] ([facility]) [address] [facility], [place], [address], 03/18/2017 06:04:53 05/08/20 17 05/10/2017 patho logy study . COMMEN T MATER IAL SUBMI TTED: . UTERI NE POLYP Not Available [facility] ([facility]) [address] [facility], [place], [address], 05/10/2017 16:18:11 05/08/20 17 05/10/2017 patho logy study . COMMEN T CLINI MELISA PROVI DED ICD-1 0: N84.0 Not Available [facility] ([facility]) [address] [facility], [place], [address], 05/10/2017 16:18:11 05/08/20 17 05/10/2017 patho logy study . COMMEN T DIAGN OSIS: UTERI NE POLYP : - POLYP OID INFAR CTED AND HEMOR RHAGI C TISSU E (3.7 CM IN [facility]), EJ TIBLE WITH PLACE NTAL TISSU E. COMME NT: CLINI DANTE CORRE LATIO N ADVIS ED. THIS CASE WAS REVIE WED FOR QA WITH DR. SUZAN Magaña WHO AGREE S WITH THE ABOVE DIAGN OSIS. NANCY/0 2016 Not Available [facility] ([facility]) [address] [facility], [place], [address], 05/10/2017 16:18:11 05/08/20 17 05/10/2017 patho logy study . COMMEN T FREDRICK MCLEAN D: . MARKUS Menon MD, PATHO LOGIS T Not Available [facility] ([facility]) [address] [facility], [place], [address], 05/10/2017 16:18:11 05/08/20 17 05/10/2017 patho logy study . COMMKASSIDY Santos GROSS DESCR IPTIO N: . 1 CONTA INER, FORMA ELADIA-F ILLED , LABEL ED WITH PATIE NT IDENT IFICA TION. UTERI NE POLYP : RECEI VIKTOR IN FORMA ELADIA IS 1 FRAGM ENT OF HUMPHREY TISSU E MEASU RING 3.7 X 2.4 X 1.2 CM. SPECI MEN IS SECTI ONED. IT IS SUBMI TTED IN ITS ENTIR ETY IN CASSE TTES A1-A7 . /LMS LMS/L MS Not Available [facility] ([facility]) [address] [place], [address], 05/10/2017 16:18:11 05/08/20 17 05/10/2017 patho logy study . COMMEN T CPT . 65524 1 Not Available [facility] ([facility]) [address] [place], [address], 05/10/2017 16:18:11 05/08/20 17 05/10/2017 bacte rial vagin osis + vagin itis panel , vagin al trich vag by SHANELLE NEGATI VE negati ve Not Available [facility] ([facility]) [address] [place], [address], 05/11/2017 14:12:56 05/08/20 17 05/10/2017 bacte rial vagin osis + vagin itis panel , vagin al chlamydia trachomatis, SHANELLE NEGATI VE negati ve Not Available [facility] ([facility]) [address] [place], [address], 05/11/2017 14:12:56 05/08/20 17 05/10/2017 bacte rial vagin osis + vagin itis panel , vagin al neisseria gonorrhoeae, SHANELLE NEGATI VE negati ve Not Available [facility] ([facility]) [address] [place], [address], 05/11/2017 14:12:56 05/08/20 17 05/11/2017 bacte rial vagin osis + vagin itis panel , vagin al atopobium vaginae LOW - 0 score Not Available [facility] ([facility]) [address] [place], [address], 05/11/2017 14:12:56 05/08/20 17 05/11/2017 bacte rial vagin osis + vagin itis panel , vagin al bvab 2 LOW - 0 score Not Available [facility] ([facility]) [address] [place], [address], 05/11/2017 14:12:56 05/08/20 17 05/11/2017 bacte rial vagin osis + vagin itis panel , vagin al megasphaera 1 LOW - 0 score CALCU LATE TOTAL SCORE BY CHAD Siddiqui THE 3 INDIV IDUAL BACTE RIAL VAGIN OSIS (BV) MARKE R SCORE S TOGET HER. TOTAL SCORE IS INTER PRETE D FOLLO WS: TOTAL SCORE 0-1: INDIC ATES THE ABSEN CE OF BV. TOTAL SCORE 2: INDET ERMIN ATE FOR BV. ADDIT IONAL CLINI DANTE DATA SHOUL D BE EVALU ATED TO ESTAB BUD A DIAGN OSIS. TOTAL SCORE 3-6: INDIC ATES THE PRESE NCE OF BV. THIS TEST WAS DEVEL OPED AND ITS PERFO RMANC E SOFIA CTERI STICS DETER MINED BY [facility]. IT HAS NOT BEEN CLEAR ED OR APPRO VIKTOR BY THE FOOD AND DRUG ADMIN ISTRA TION. THE FDA HAS DETER MINED THAT SUCH CLEAR ANCE OR APPRO DANNY IS NOT NECES JAKE. Not Available [facility] ([facility]) [address] [facility], [place], [address], 05/11/2017 14:12:56 05/08/20 17 05/11/2017 bacte rial vagin osis + vagin itis panel , vagin al minal albicans, SHANELLE NEGATI VE negati ve Not Available [facility] ([facility]) [address] [place], [address], 05/11/2017 14:12:56 05/08/20 17 05/11/2017 bacte rial vagin osis + vagin itis panel , vagin al minal glabrata, SHANELLE NEGATI VE negati ve THIS TEST WAS DEVEL GINGERED AND ITS PERFO RMANC E SOFIA CTERI STICS DETER MINED BY [facility]. IT HAS NOT BEEN CLEAR ED OR APPRO VIKTOR BY THE FOOD AND DRUG ADMIN ISTRA TION. THE FDA HAS DETER MINED THAT SUCH CLEAR ANCE OR APPRO DANNY IS NOT NECES JAKE. Not Available [facility] ([facility]) [address] [place], [address], 05/11/2017 14:12:56 05/08/20 17 05/10/2017 HSV (1+2) DNA, qual, PCR, unspe cifie d speci men hsv 1 SHANELLE NEGATI VE negati ve Not Available [facility] ([facility]) [address] [place], [address], 05/11/2017 14:12:57 05/08/20 17 05/10/2017 HSV (1+2) DNA, qual, PCR, unspe cifie d speci men hsv 2 SHANELLE NEGATI VE negati ve Not Available [facility] ([facility]) [address] [place], [address], 05/11/2017 14:12:57 05/08/20 17 05/10/2017 cultu re, vagin al/re ctal, strep tococ cus group B strep gp B SHANELLE NEGATI VE negati ve [facility] RS FOR DISEA SE CONTR OL AND PREVE NTION (CDC) AND AMERI CAN CONGR ESS OF OBSTE TRICI ANS AND GYNEC OLOGI STS (ACOG ) GUIDE LINES FOR PREVE NTION OF PERIN ATAL GROUP B STREP TOCOC DANTE (GBS) DISEA SE SPECI FY CO-CO LLECT ION OF A VAGIN AL AND RECTA L SWAB SPECI MEN TO MAXIM IZE SENSI TIVIT Y OF GBS DETEC TION. PER THE CDC AND ACOG, SWABB ING BOTH THE LOWER VAGIN A AND RECTU M SUBST ANTIA LLY INCRE ASES THE YIELD OF DETEC TION EJ RED WITH SAMPL ING THE VAGIN A ALONE . PENIC ILLIN G, AMPIC ILLIN , OR CEFAZ MARY ARE INDIC ATED FOR INTRA PARTU M PROPH YLAXI S OF PERIN ATAL GBS COLON IZATI ON. REFLE X SUSCE PTIBI LITY TESTI NG SHOUL D BE PERFO RMED PRIOR TO USE OF CLIND AMYCI N ONLY ON GBS ISOLA ERICK FROM PENIC ILLIN -MIGDALIA RGIC WOMEN WHO ARE CONSI DERED A HIGH RISK FOR ANAPH YLAXI S. TREAT MENT WITH VANCO MYCIN WITHO UT ADDIT IONAL TESTI NG IS WARRA NTED IF RESIS TANCE TO CLIND AMYCI N IS NOTED . Not Available [facility] ([facility]) [address] [facility], [place], [address], 05/11/2017 14:12:57 05/08/2005/10/2017 pap, IG + HPV, cervi dante HPV aptima POSITI VE negati ve abnormal THIS TEST DETEC TS FOURT EEN HIGH- RISK HPV TYPES (16/1 8/31/ 33/35 /39/4 5/ 51/52 /56/5 8/59/ 66/68 ) WITHO UT DIFFE RENTI ATION . Not Available [facility] ([facility]) [address] [facility], [place], [address], 05/11/2017 16:16:17 05/08/20 17 05/11/2017 pap, IG + HPV, cervi dante diagnosis: COMMEN T abnormal EPITH ELIAL CELL ABNOR MALIT Y. ATYPI DANTE SQUAM OUS CELLS OF UNDET ERMIN ED SIGNI FICAN CE. Not Available [facility] ([facility]) [address] [place], [address], 05/11/2017 16:16:17 05/08/20 17 05/11/2017 pap, IG + HPV, cervi dante specimen adequacy: COMMEN T SATIS FACTO RY FOR EVALU ATION . ENDOC ERVIC AL AND/O R SQUAM OUS METAP LASTI C CELLS (ENDO CERVI DANTE COMPO NENT) ARE PRESE NT. Not Available [facility] ([facility]) [address] [place], [address], 05/11/2017 16:16:17 05/08/20 17 05/11/2017 pap, IG + HPV, cervi dante clinician provided ICD10: RAYNE Santos Z39.2 N84.0 Not Available [facility] ([facility]) [address] [place], [address], 05/11/2017 16:16:17 05/08/20 17 05/11/2017 pap, IG + HPV, cervi dante performed by: RAYNE Santos, CYTOT ANTHONY Santos (ASCP ) Not Available [facility] ([facility]) [address] [place], [address], 05/11/2017 16:16:17 05/08/20 17 05/11/2017 pap, IG + HPV, cervi dante electronical ly signed by: RAYNE CASAREZ MD, PATHO LOGIS T Not Available [facility] ([facility]) [address] [place], [address], 05/11/2017 16:16:17 05/08/20 17 05/11/2017 pap, IG + HPV, cervi dante . . Not Available [facility] ([facility]) [address] [place], [address], 05/11/2017 16:16:17 05/08/20 17 05/11/2017 pap, IG + HPV, cervi dante pathologist provided ICD10: RAYNE Santos R87.6 10 Not Available [facility] ([facility]) [address] [place], [address], 05/11/2017 16:16:17 05/08/20 17 05/11/2017 pap, IG + HPV, cervi dante note: RAYNE Santos THE PAP SMEAR IS A SCREE JOVANI TEST DESIG YUMIKO TO AID IN THE DETEC TION OF RACHELE LIGNA NT AND MALIG NANT CONDI TIONS OF THE UTERI NE CERVI X. IT IS NOT A DIAGN OSTIC PROCE DURE AND SHOUL D NOT BE USED THE SOLE MEANS OF DETEC TING CERVI DANTE CANCE R. BOTH FALSE -POSI TIVE AND FALSE -NEGA TIVE REPOR TS DO OCCUR . Not Available [facility] ([facility]) [address] [place], [address], 05/11/2017 16:16:17 05/08/20 17 05/11/2017 pap, IG + HPV, cervi dante test methodology: COMMEN T THIS LIQUI D BASED THINP REP(R ) PAP TEST WAS SCREE YUMIKO WITH THE USE OF AN IMAGE GUIDE Swapna Billings. Not Available [facility] ([facility]) [address] [place], [address], 05/11/2017 16:16:17 05/14/20 18 05/17/2018 bacte rial vagin osis + vagin itis panel , vagin al atopobium vaginae Low - 0 score Not Available [facility] ([facility]) [address] [place], [address], 05/18/2018 06:06:15 05/14/20 18 05/17/2018 bacte rial vagin osis + vagin itis panel , vagin al bvab 2 Low - 0 score Not Available [facility] ([facility]) [address] [place], [address], 05/18/2018 06:06:15 05/14/20 18 05/17/2018 bacte rial vagin osis + vagin itis panel , vagin al megasphaera 1 Low - 0 score Calcu late total score by chad siddiqui the 3 indiv idual bacte rial vagin osis (BV) marke r score s toget her. Total score is inter prete d as follo ws: Total score 0-1: Indic ates the absen ce of BV. Total score 2: Indet ermin ate for BV. Addit ional clini dante data shoul d be evalu ated to estab bud a diagn osis. Total score 3-6: Indic ates the prese nce of BV. This test was devel oped and its perfo rmanc e sofia cteri stics deter mined by [employer]. It has not been clear ed or appro viktor by the Food and Drug Admin istra tion. The FDA has deter mined that such clear ance or appro danny is not neces jake. Not Available [facility] ([facility]) [address] [place], [address], 05/18/2018 06:06:15 05/14/2005/17/2018 bacte rial vagin osis + vagin itis panel , vagin al minal albicans, SHANELLE Negati ve negati ve Not Available [facility] ([facility]) [address] [place], [address], 05/18/2018 06:06:15 05/14/2005/17/2018 bacte rial vagin osis + vagin itis panel , vagin al minal glabrata, SHANELLE Negati ve negati ve This test was devel oped and its perfo rmanc e sofia cteri stics deter mined by [facility]. It has not been clear ed or appro viktor by the Food and Drug Admin istra tion. The FDA has deter mined that such clear ance or appro danny is not neces jake. Not Available [facility] ([facility]) [address] [place], [address], 05/18/2018 06:06:15 05/14/2005/17/2018 bacte rial vagin osis + vagin itis panel , vagin al trich vag by SHANELLE Negati ve negati ve Not Available [facility] ([facility]) [address] [place], [address], 05/18/2018 06:06:15 08/14/05/17/2018 bacte rial vagin osis + vagin itis panel , vagin al chlamydia trachomatis, SHANELLE Negati ve negati ve Not Available [facility] ([facility]) [address] [place], [address], 05/18/2018 06:06:15 05/14/20 18 05/17/2018 bacte rial vagin osis + vagin itis panel , vagin al neisseria gonorrhoeae, SHANELLE Negati ve negati ve Not Available [facility] ([facility]) [address] [facility], [place], [address], 05/18/2018 06:06:15 05/14/2005/16/2018 cultu re, vagin al/re ctal, strep tococ cus group B strep gp B SHANELLE Negati ve negati ve Cente rs for Disea se Contr ol and Preve ntion (CDC) and Ameri can Congr ess of Obste trici ans and Gynec ologi sts (ACOG ) guide lines for preve ntion of perin atal group B strep tococ dante (GBS) disea se speci fy co-co llect ion of a vagin al and recta l swab speci men to maxim ize sensi tivit y of GBS detec tion. Per the CDC and ACOG, swabb ing both the lower vagin a and rectu m subst antia lly incre ases the yield of detec tion ej red with sampl ing the vagin a alone . Penic illin G, ampic illin , or cefaz mary are indic ated for intra partu m proph ylaxi s of perin atal GBS colon izati on. Refle x susce ptibi lity testi ng shoul d be perfo rmed prior to use of clind amyci n only on GBS isola erick from penic illin -migdalia rgic women who are consi dered a high risk for anaph ylaxi s. Treat ment with vanco mycin witho ut addit ional testi ng is warra nted if resis tance to clind amyci n is noted . Not Available [facility] ([facility]) [address] [facility], [place], [address], 05/18/2018 06:06:16 05/14/20 18 05/17/2018 pap, IG + HPV, cervi dante diagnosis: Rayne GALINDO FOR INTRA EPITH ELIAL LESIO N AND RADHA VIDALES . Not Available [facility] ([facility]) [address] [place], [address], 05/21/2018 08:34:26 05/14/20 18 05/17/2018 pap, IG + HPV, cervi dante specimen adequacy: Rayne t Satis facto ry for evalu ation . Endoc ervic al and/o r squam ous metap lasti c cells (endo cervi dante compo nent) are prese nt. Not Available [facility] ([facility]) [address] [place], [address], 05/21/2018 08:34:26 05/14/20 18 05/17/2018 pap, IG + HPV, cervi dante performed by: Rayne Pritchard , Cytot anthony agosto t (ASCP ) Not Available [facility] ([facility]) [address] [place], [address], 05/21/2018 08:34:26 05/14/20 18 05/17/2018 pap, IG + HPV, cervi dante . . Not Available [facility] ([facility]) [address] [place], [address], 05/21/2018 08:34:26 05/14/20 18 05/17/2018 pap, IG + HPV, cervi dante note: Rayne t The Pap smear is a scree jovani test desig yumiko to aid in the detec tion of rachele ligna nt and malig nant condi tions of the uteri ne cervi x. It is not a diagn ostic proce dure and shoul d not be used as the sole means of detec ting cervi dante cance r. Both false -posi tive and false -nega tive repor ts do occur . Not Available [facility] ([facility]) [address] [facility], [place], [address], 05/21/2018 08:34:26 05/14/20 18 05/17/2018 pap, IG + HPV, cervi dante test methodology: Commen t This liqui d based ThinP rep(R ) pap test was scree yumiko with the use of an image guide swapna billings. Not Available [facility] ([facility]) [address] [facility], [place], [address], 05/21/2018 08:34:26 05/14/20 18 05/21/2018 pap, IG + HPV, cervi dante HPV aptima Negati ve negati ve This test detec ts fourt een high- risk HPV types (16/1 8/31/ 33/35 /39/4 5/ 51/52 /56/5 8/59/ 66/68 ) witho ut diffe renti ation . Not Available [facility] ([facility]) [address] [facility], [place], [address], 05/21/2018 08:34:26 03/05/20 17 03/05/2017 non-s tress test No observ ation record ed. [facility] [address] [place], [address], 03/14/2017 11:16:58 03/13/20 17 non-s tress test No observ ation record ed. [facility]) [address] [place], [address], 03/14/2017 11:16:58 03/19/20 17 03/19/2017 non-s tress test No observ ation record ed. [facility] [address] [place], [address], 03/21/2017 14:39:37 03/26/20 17 03/26/2017 imagi ng/di emos tic resul t No observ ation record ed. [facility] [address] [facility], [place], [address], 03/28/2017 15:48:40 Result Notes None recorded. Problems Name Problem SNOMED Code Status Onset Date Resolution Date Notes Provider Name and Address Organization Details Recorded Time Dysmenorr hea 637064722 Active 2017 Alek ChinoJohnny null, [place] - [facility] 8 12:42:03 Endometri osis (clinical ) 399795097 Active 2017 Alek ChinoJohnny [place] [facility] 8 12:42:35 Anxiety 41590579 Active 2017 Alek pierce[place] [facility] 8 12:45:21 Absent blood vessel in umbilical cord 596944876 Completed 2016 2 VESSEL CORD Shama Kelly [place] - [facility] 7 16:38:33 Absent blood vessel in umbilical cord 945134200 Completed 201605/14/2018 2 VESSEL CORD Alek ChinoJohnny [place] [facility] 8 12:41:47 Polyp at cervical os 844165625 Completed 201605/14/2018 Alek ChinoJohnny [place] [facility] 8 12:41:52 Benign gestation al thrombocy topenia 892603194 Active 2016 KRUNAL Maria[place] - [facility] 7 16:38:33 Benign gestation al thrombocy topenia 727511168 Completed 2016 Shama Kelly [place] [facility] 7 16:38:33 HPV - Human papilloma virus test positive Completed KRUANL [place] [facility] 7 16:38:33 History of uterine cervix surgery [id number] Completed LEEP KRUNAL [place] [facility] 7 16:38:33 Female steriliza tion Active 2016 Alek Johnny pierce[place] - [facility] 7 18:12:37 Problem Notes None recorded. Procedures Surgical History Date Name Laterality Status Provider Name and Address Organization Details Recorded Time 7 Tubal Ligation completed Shama Kelly MA [facility] 05/31/2017 10:43:34 7 Date of Last Pap Smear completed Shama Kelly MA [place] - [facility] 05/08/2017 16:41:39 5 LEEP completed Shama Kelly MA [facility] 08/28/2016 14:26:06 Imaging Results Imaging Date Name Status LastModified by Organiz ation Details LastModified Time 03/05/2017 non-stress test completed [facility] [address] [place], [address], 03/14/2017 11:16:58 03/13/2017 non-stress test completed [facility] ([facility]) [address] [place], [address], 03/14/2017 11:16:58 03/19/2017 non-stress test completed [facility] [address] [place], [address], 03/21/2017 14:39:37 03/26/2017 imaging/diag nostic result completed [facility] [address] [place], [address], 03/28/2017 15:48:40 Procedure Notes None recorded. Medical Equipment None Reported. Allergies Allergen ID Allergen Name Allergen Category Reaction Reaction Severity Criticality Documentation Date Start Date Code Code System Note Provider Name and Address Organization Details Recorded Time [id number] latex environme nt,medica tion rash mild Not available 08/28/2016 [id number] RxNorm Not Available Not Available Not Available Medications Name Sig Start Date Stop Date Status Note LastModified by Organization Details LastModified Time multivitami n tablet Take 1 tablet every day by oral route. 2017 active Not Available Not Available Not Avai lable Vitamin B-6 25 mg tablet Take 1 tablet 3 times a day by oral route. 09/12 completed Not Available Not Available Not Available ibuprofen 800 mg tablet 09/12 completed Not Available Not Available Not Available acetaminoph en 300 mg-codeine 30 mg tablet 05/14 completed Not Available Not Available Not Available Reglan 10 mg tablet Take 1 tablet 4 times a day by oral route before meals. 03/28 completed Not Available Not Available Not Available Zantac 150 mg tablet Take 1 tablet every day by oral route. 09/12 completed Not Available Not Available Not Available Macrobid 100 mg capsule Take 1 capsule every 12 hours by oral route for 7 days. 09/12 completed Not Available Not Available Not Available Vitamin tablet Take 1 tablet every day by oral route as directed for 90 days. 09/12 completed Not Available Not Available Not Available oxycodone-a cetaminophe n 5 mg-325 mg tablet 09/12 completed Not Available Not Available Not Available ferrous sulfate 325 mg (65 mg iron) tablet 09/12 completed Not Available Not Available Not Available sertraline 25 mg tablet TAKE ONE TABLET BY MOUTH ONCE DAILY 05/08 completed Not Available Not Available Not Available Reglan 5 mg tablet Take 1 tablet as needed by oral route. 03/28 completed Not Available Not Available Not Available escitalopra m 10 mg tablet TAKE ONE TABLET BY MOUTH ONCE DAILY 2017 active Not Available Not Available Not Avai lable Lexapro 20 mg tablet Take 1 tablet every day by oral route. 2017 active Not Available Not Available Not Avai lable Vitamin D3 50 mcg (2,000 unit) capsule Take 1 capsule every day by oral route. 09/12 completed Not Available Not Available Not Available 28 mg iron-800 mcg tablet 09/12 completed Not Available Not Available Not Available calcium 600 mg (as carbonate)- vitamin D3 20 mcg (800 unit) tablet Take 1 tablet twice a day by oral route. 2017 active Not Available Not Available Not Avai lable Orilissa 150 mg tablet Take 1 tablet every day by oral route. 2017 active Not Available Not Available Not Avai lable Vitals Date Recorded Body height Provider Name an d Address Organization Details Last Updated DateTime 05/14/2018 175.26 cm Nicole Kirby [facility] 05/14/2018 11:51:24 Date Recorded Body mass index (BMI) Body weight Provider Name and Address Organization Details Last Updated DateTime 05/14/2018 17.4 kg/m2 55418.9 g Nicole Kirby [facility] 11:51:33 Date Recorded Body height Provider Name an d Address Organization Details Last Updated DateTime 03/21/2017 175.26 cm Shama Kelly [facility] 2016 12:38:38 Date Recorded Body mass index (BMI) Provider Name and Address Organization Details Last Updated DateTime 03/21/2017 21.1 kg/m2 Shama Robin [facility] 2016 12:38:44 Date Recorded Body weight Provider Name an d Address Organization Details Last Updated DateTime 03/21/2017 69791.65731 g Juanita Catherine [facility] 03/21/2017 13:11:02 Date Recorded Body height Provider Name an d Address Organization Details Last Updated DateTime 03/28/2017 175.26 cm Shama Robin [facility] 2016 12:33:35 Date Recorded Body mass index (BMI) Provider Name and Address Organization Details Last Updated DateTime 03/28/2017 21.3 kg/m2 Shama Robin [facility] 2016 12:33:42 Date Recorded Body weight Provider Name an d Address Organization Details Last Updated DateTime 03/28/2017 82468.95798 g Alek Turner [facility] 017 13:36:19 Date Recorded Body height Provider Name an d Address Organization Details Last Updated DateTime 05/08/2017 175.26 cm Shama Kelly [facility] 2016 16:41:16 Date Recorded Body mass index (BMI) Body weight Provider Name and Address Organization Details Last Updated DateTime 05/08/2017 18.8 kg/m2 50384.23 g Shama Kelly [facility] 05/08/2017 16:41:24 Date Recorded Body height Provider Name an d Address Organization Details Last Updated DateTime 05/31/2017 175.26 cm Shama Kelly MA [facility] 2016 10:42:00 Date Recorded Body mass index (BMI) Body weight Provider Name and Address Organization Details Last Updated DateTime 05/31/2017 18.3 kg/m2 81396.45 g Shama Kelly MA [facility] 05/31/2017 10:42:06 Date Recorded Systolic blood pressure Diastolic blood pressure Provider Name and Address Organization Details Last Updated DateTime 05/14/2018 112 mm[Hg] 60 mm[Hg] Nicole KirbyKRUNAL [facility] 05/14/2018 11:51:40 Date Recorded Systolic blood pressure Diastolic blood pressure Provider Name and Address Organization Details Last Updated DateTime 03/21/2017 114 mm[Hg] 74 mm[Hg] Shama Kelly MA [facility] 03/21/2017 12:45:08 Date Recorded Systolic blood pressure Diastolic blood pressure Provider Name and Address Organization Details Last Updated DateTime 03/28/2017 110 mm[Hg] 74 mm[Hg] Shama Kelly MA [facility] 03/28/2017 12:37:24 Date Recorded Systolic blood pressure Diastolic blood pressure Provider Name and Address Organization Details Last Updated DateTime 05/08/2017 84 mm[Hg] 58 mm[Hg] Juanita Catherine MA [facility] 05/08/2017 16:52:18 Date Recorded Systolic blood pressure Diastolic blood pressure Provider Name and Address Organization Details Last Updated DateTime 05/31/2017 102 mm[Hg] 70 mm[Hg] Shama Kelly MA [facility] 05/31/2017 10:45:39 Social History Question Answer Notes LastModified by Organizat ion Details LastModified Time Tobacco Smoking Status Never Smoker Shama Kelly MA [facility] 08/28/2016 14:24:13 Do You Have An Advance Directive? No Information not available 08/28/2016 What Is Your Level Of Alcohol Consumption? Occasional Information not available 08/28/2016 Is Blood Transfusion Acceptable In An Emergency? Yes Information not available 08/28/2016 What Is Your Level Of Caffeine Consumption? Moderate Information not available 08/28/2016 How Much Tobacco Do You Chew? None Information not available 08/28/2016 Are You Currently Employed? Yes Information not available 08/28/2016 What Type Of Diet Are You Following? REGULAR Information not available 08/28/2016 Which Illicit Or Recreational Drugs Have You Used? 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 With Others Information not available 08/28/2016 What Was The Date Of Your Most Recent Tobacco Screening? 05/14/2018 Information not available 04/24/2019 How Many Children Do You Have? 1 Information not available 08/28/2016 Performs Monthly Self-breast Exam? Yes Information no t available 08/28/2016 Do You Use Protection During Sex? No Information not available 08/28/2016 What Is Your Relationship Status? Information not available 08/28/2016 Seat Belts Used Routinely Yes Information not available 08/28/2016 Are You Sexually Active? Yes Information not available 08/28/2016 General Stress Level High [email or web address] Information not available 05/14/2018 Do You Use Sunscreen Routinely? No Information not available 08/28/2016 Sex: Unknown Functional Status Question Answer Note LastModified by Organization D etails LastModified Time What is your exercise level? None [email or web address] Information not available 08/28/2016 Mental Status None recorded. Family History Relationship Description Onset Age of this Age Resolved Age Notes LastModified by Organization Details LastModified Time Father No current problems or disability Not available 08/02 14:23:59 Mother No current problems or disability Not available 08/02 14:23:59 Maternal Grandfather Diabetes mellitus [email or web address] Not available 2017 11:53:47 Medical History Condition Response Other N High Blood Pressure N Breast Cancer N Kidney or Bladder Problems N Thyroid Problems N GI Problems N Lung Disease N Depression N Blood Clots N Acne N Breast Problem N Eating Disorder N Anemia N Anesthesia Complications N Headaches/Migraines N Anxiety Disorder Y Ovarian Cancer N Diabetes N Muscle, Joint, or Bone Problems N Blood Transfusions N Seizures/Epilepsy N Polyps N Infertility N Acid Reflux (GERD) N Cancer N Abuse/Domestic Violence N Asthma N Endometriosis N High Cholesterol N Hepatitis N Liver Disease N Heart Disease N Pre-Eclampsia N Osteoporosis N Gynecological History Statement/Question Response Abnormal Pap Y Flow Heavy On BCP's at Conception? N STIs/STDs N HPV Vaccine N Duration of Flow (days) 7 Age at Menarche 16 Current Control Method Tubal Ligat ion Age at First Child 28 Sexually Active? Y Menses Monthly Y Date of Last Pap Smear 05/08/2017 Sexual Problems? Y LMP Approximate Desired Control Method None Obstetrics History GPAL:G 2 P 2 0 0 2 Type Value Multiple Births 0 Full Term 2 Induced 0 Spontaneous 0 Premature 0 Living 2 Ectopics 0 Total 2 Immunizations Vaccine Type Date Status Note Provider Nam e and Address Organization Details Recorded Time COVID-19, mRNA, LNP-S, PF, 30 mcg/0.3 mL dose 09/22/2020 completed Rodney pierce [place] - [facility] 04/01/2021 15:28:00 COVID-19, mRNA, LNP-S, PF, 30 mcg/0.3 mL dose 10/13/2020 completed SILVANA Ruiz - [facility] 04/01/2021 15:28:22 Tdap 01/26/2017 completed Not Available [facility] 10/18/2019 02:46:03 Past Encounters Encounter ID Performer Location Encounter Start Date Encounter Closed Date Diagnosis/Indication Diagnosis SNOMED-CT Code Diagnosis ICD10 Code Diagnosis Note [id number] MD Scarlett Heller ([employer]GER [employer]) [address] [place] [address] [id number] 0 08/28/2016 13:53:59 08/29/2016 12:37:37 Threatened miscarriage 62754989 O20.0 Advised nurse to get records. Wiii check bhcg levels and Ultrasound . Advised patient to go to ER if vaginal bleeding more than pad per hour, fever greater than 100.4, severe pelvic pain Morning sickness 0366292 6 O21.9 [id number] KRUNAL Maria ([employer]GER [employer]) [address] [place] [address] [id number] 0 09/04/2016 16:24:48 09/06/2016 10:09:05 Routine care 501140686 Z34.91 Morning sickness 9420890 6 O21.9 [id number] RAHEEM Cramer ([employer]) [address] [place] [address] [id number] 0 09/15/2016 16:03:48 09/18/2016 09:56:01 Normal 84732296 Z34.91 [id number] MD Scarlett Heller ([employer]) [address] [place] [address] [id number] 0 10/11/2016 16:23:38 10/12/2016 13:03:27 Routine care 949146715 Z34.91 [id number] MD Scarlett Heller ([employer]) [address] [place] [address] [id number] 0 11/08/2016 09:58:42 11/09/2016 12:29:17 Routine care 151594825 Z34.91 Mixed anxi ety and depressive disorder 128420595 F41.8 Denies suicidal [id number] MD Scarlett Heller ([employer]) [address] [place] [address] [id number] 12/06/2016 11:03:47 12/07/2016 14:48:22 Routine care 105175910 Z34.91 [id number] MD Scarlett Heller ([employer]) [address] [place] [address] [id number] 0 01/03/2017 11:04:04 01/05/2017 13:50:12 Routine care 308228822 Z34.91 Urinary tr act infectious disease 81925993 N39.0 counseled about it and informatio n handed to patient Acid reflux 953870365 K2 1.9 counseled about it. Counseled about elevation of head when lying down [id number] MD Scarlett Heller ([employer]) [address] [place] [address] [id number] 01/09/2017 16:12:33 01/10/2017 16:04:44 Routine care 788829536 Z34.91 [id number] KRUNAL Shea ([employer]GER [employer]) [address] [place] [address] [id number] 0 01/24/2017 10:00:44 01/25/2017 14:48:11 Routine care 830070901 Z34.83 Diabetes m ellitus screening 193877680 Z13.1 Z13.9 Polyp of cervix 04091254 N84.1 no active bleeding at this time, no intercours e, will remove [id number] KRUNAL Shea ([employer]GER [employer]) [address] [place] [address] [id number] 0 02/12/2017 10:18:28 02/13/2017 14:42:28 Benign gestational thrombocytopenia 601120843 D69.59 Routine an tenatal care 693202148 Z34.83 Absent blo od vessel in umbilical cord 480023963 Q27.8 Antepartum testing weekly starting at 32 weeks Polyp at cervical os 248 637747 N84.1 [id number] Alek Pantoja ([employer]GER [employer]) [address] [place] [address] [id number] 0 02/28/2017 10:58:17 02/28/2017 16:21:39 Routine care 008994729 Z34.83 Benign ges tational thrombocytopenia 082545726 D69.59 Polyp at cervical os 248 566697 N84.1 Absent blo od vessel in umbilical cord 789970003 Q27.8 Antepartum testing weekly starting at 32 weeks [id number] Alek Pantoja [facility] (MA[employer]GER [employer]) [address] [place] [address] [id number] 0 03/14/2017 10:28:59 03/14/2017 11:52:56 Routine care 856548172 Z34.83 Benign ges tational thrombocytopenia 859103003 D69.59 Polyp at cervical os 248 930250 N84.1 Absent blo od vessel in umbilical cord 798653164 Q27.8 Antepartum testing weekly starting at 32 weeks [id number] Alek Pantoja ([employer]GER [employer]) [address] [place] [address] [id number] 0 03/21/2017 11:53:53 03/21/2017 16:39:15 Routine care 827052817 Z34.83 Polyp at cervical os 248 948955 N84.1 Absent blo od vessel in umbilical cord 920885044 Q27.8 Antepartum testing weekly starting at 32 weeks [id number] [facility] ([facility] [address] [place] [address] 03544-314 0 03/28/2017 11:57:54 03/28/2017 14:14:49 Routine care 892905876 Z34.83 Benign ges tational thrombocytopenia 378677098 D69.59 Polyp at cervical os 248 426709 N84.1 Absent blo od vessel in umbilical cord 405631503 Q27.8 Antepartum testing weekly starting at 32 weeks [id number] [facility] ([facility]) [address] [place] [address] [id number] 0 05/08/2017 15:42:31 05/08/2017 17:38:33 care 067304865 Z39.2 Plan for tubal ligation 05/11/2017 Generalize d anxiety disorder 48475405 F41.1 Polyp of corpus uteri 11 524207 N84.0 Patient brought in passed tissue, sent to pathology [id number] [facility] ([facility]) [address] [place] [address] [id number] 0 05/31/2017 09:51:00 05/31/2017 16:16:25 Surgical follow-up 157448992 Z09 Female sterilization 608 28403 Z30.2 Patient instructed on post-opera tive exercises to perform at home. [id number] [facility] ([facility]) [address] [place] [address] [id number] 0 05/14/2018 11:22:31 05/14/2018 12:47:11 Gynecologic examination 73293803 Z01.411 Female sterilization 608 20817 Z30.2 Dysmenorrhea 292563270 N 94.6 Endometrio sis (clinical) 183450435 N80.9 Family eron nning surveillance 245989656 Z30.09 Anxiety 18877490 F41.9 Health Concerns Section Related Observation LastModified by Organization Detai ls LastModified Time None Recorded Concern Status LastModified by Organization Details LastModified Time None Recorded Advance Directives Directive N: Payers Encounter Date Sequence Insurance Name Policy Number Policy Gooden Covered Member ID Gooden Member ID Guarantor Name 03/21/2017 1 [facility] (MEDICAID HMO) [id number] Emerita Bah [id number] Emerita Niurka 03/28/2017 1 [facility] (MEDICAID HMO) [id number] Emerita Niurka [id number] Emerita Niurka 05/08/2017 1 [facility] (MEDICAID HMO) [id number] Emerita Niurka [id number] Emerita Niurka 05/31/2017 1 [facility] (MEDICAID HMO) [id number] Emerita Niurka [id number] Emerita Niurka 05/14/2018 1 [facility] [id number] Emerita Niurka [id number] Emerita Niurka Notes Date Note Type Note Provider Name and Address Organization Details Recorded Time 03/21/2017 text/html OB ProblemReport ed bypatient.Associated Symptoms:no abdominal pain; no cramping; normal movement; no bleeding; no ROM; no vaginal/vulvar itching or irritation; no dysuria; no frequency; no urgency; no hematuria; no fever; no nausea; no emesis; no constipation; no diarrhea/loose stool; no edema; no visual changes; no headache; no dizziness;contractions (BH);vaginal discharge 32 y/o, wf, , w/ endocervical polyp, +HPV, thrombocytopenia secondary to (130,000 platelets) , presents for 36.2 wk ani. Weekly NST 2/2 2 vc; NST on 03-13-17 reactive. Would like PPBTL - papers were signed today Alek Turner [facility] [place] - [facility] 03/21/2017 18:05:02 03/28/2017 text/html OB ProblemReport ed bypatient.Associated Symptoms:no abdominal pain; no cramping; no contractions; normal movement; no bleeding; no ROM; no vaginal discharge; no vaginal/vulvar itching or irritation; no dysuria; no frequency; no urgency; no hematuria; no fever; no nausea; no emesis; no constipation; no diarrhea/loose stool; no edema; no visual changes; no headache; no dizziness 32 year-old at 37wks 2d gestation presents for ANI. Alek SILVANA Waddell SIMary 03/29/2017 14:27:18 05/08/2017 text/html VisitReported bypatient.Context:post complications: fever Associated Symptoms:laceration well healed; no constipation; no fecal incontinence; no dysuria; no urinary incontinence; no fever; no problems; no mastitis;abnormal bleeding;pelvic pain; Passed large piece of tissue yesterday, symptoms have resovled. Alek ChinoJohnnySILVANA carbajal SIMary 05/08/2017 17:41:15 05/31/2017 text/html Post-OpReported bypatient.Associated Symptoms:incision healing well; no fatigue; normal appetite; normal bowel function; no constipation; no nausea; no emesis; pain improving; no pain; no fever; no bleeding; no lower extremity edema/pain; no dysuria/urinary symptoms 32 yo female here today for post-op follow up for tubal ligation. Alek SILVANA Waddell SIMary 05/31/2017 18:20:48 05/14/2018 text/html Annual GYNReport ed bypatient.History:no gynecologic complaints Menstrual cycle:Severe dysmenorrhea;Irregular cycle intervals Urinary symptoms:No hematuria; No incontinence Vulva:No genital lesion Vagina:Normal vaginal discharge Breast:No breast pain; No breast lump; No nipple discharge Sexual complaints:No sexual complaints; No pain during intercourse; Normal libido Menopausal Symptoms:No menopausal symptoms; Normal vaginal lubrication Psychological symptoms:No depression; No anxiety; No PMDD Preventive measures:Encourage self breast examination; Encourage regular exercise; Encourage no tobacco use; Encourage regular mammograms starting age 40 33 yo female presents for an annual exam with irregular spotting accompanied by dysmenorrhea. Alek ChinoJohnnySILVANA carbajal [facility] 05/15/2018 18:43:52 OBGyn Episode Ob Episode Information Episode Created Date Number of Fetuses Patient Bloodtype Patient rh Status Prepregnancy Weight lbs Domestic Partner Domestic Partner Phone Father Name Headlight Assembler Status 08/28/20 16 1 CLOSED Fetus Data First Name Last Name Admitted to NICU Weight (g) Sex Living Outcome Pediatric Complications Fetus ID Race Codes Race Delivery Type 3656.85 8704 M Full Term 10365 Dain Calculation Initial Dain Date Initial Exam Date Initial Exam Provider Initial Ultrasound Date Last Menstrual Period Date Ultra Sound Weeks Gestation 0 Eighteen To Twenty Week Dain Update Ultra Sound Date Fundal Height At Umbil Quickening Date Ultra Sound Latest Weeks Gestation Final Dain Confirmed By Final Dain Confirmed Date Final Dain Date Ultra Sound Latest Days Gestation 0 0 Menstrual History Last Menstrual Date Menses Monthly On Bcp Conception Prior Menses Frequency Hcg Plus Date Menarche Onset Age Delivery Information Delivery Date Delivery Type Labor Anesthesia Weeks Gestation Incision Type Labor Labor Length Hrs Delivered By Post Complications Tubal Sterilization Discharge Date Comments 3 Regional-Ep idural 39 false 10 Discharge Information Feeding Method Contraceptive Method Maternal HG B and HCT Levels Ob Episode Information Episode Created Date Number of Fetuses Patient Bloodtype Patient rh Status Prepregnancy Weight lbs Domestic Partner Domestic Partner Phone Father Name Headlight Assembler Status 08/28/20 16 1 O Positive 125 bel niurka a to z ped. CLOSED Fetus Data First Name Last Name Admitted to NICU Weight (g) Sex Living Outcome Pediatric Complications Fetus ID Race Codes Race Delivery Type Shireen m Darrius Bah false 3373.59 05 M true Full Term [id number] 2106-3 White Vaginal Problems Problem Notes 12/06/16 baby boy, Jayro Menon maryam Bah, yes to circ, bottle, PEDS, Dr. Ramirez, [facility] [place], [place], Pt wants PPBTL, papers signed gbs negative. 03/28/2017 mds Problem Name Start Date End Date Resolution Snomed Code Not e HPV - Human papillomavirus test positive [id number] History of uterine cervix surgery 514070755251240 LEEP Absent blood vessel in umbilical cord 01/09/2017 648188233 2 VESSEL CORD Benign gestational thrombocytopenia 02/12/2017 239194058 Dain Calculation Initial Dain Date Initial Exam Date Initial Exam Provider Initial Ultrasound Date Last Menstrual Period Date Ultra Sound Weeks Gestation 04/16/2017 08/28/2016 [email or web address] 08/29/2016 07/03/2016 7 Eighteen To Twenty Week Dain Update Ultra Sound Date Fundal Height At Umbil Quickening Date Ultra Sound Latest Weeks Gestation Final Dain Confirmed By Final Dain Confirmed Date Final Dain Date Ultra Sound Latest Days Gestation 08/29/20 16 7 [email or web address] 08/29/2016 04/16/20 17 1 Pre- Flowsheet Flowsheet Date 08/28/2016 Wilcox Score Blood Edema Fundus Height Fundus Units Glucose Ketones Leukocytes Nitrite Labor Signs Protein Cervic Dilation Cervic Effacement Cervic Station Type Weight in lbs Pre/Post Dialysis Refused 123.018133284573 BP Diastolic BP Location Tested BP Systolic BP Type 52 92 sitting Fetus Heart Rate Present Fetus Movement Comments Flowsheet Date 09/04/2016 Wilcox Score Blood Edema Fundus Height Fundus Units Glucose Ketones Leukocytes Nitrite Labor Signs Protein Cervic Dilation Cervic Effacement Cervic Station neg none none trace none 1+ Type Weight in lbs Pre/Post Dialysis Refused 121.364536816502 BP Diastolic BP Location Tested BP Systolic BP Type 56 86 sitting Fetus Heart Rate Present A TOO EARLY Fetus Movement Comments C/O Nausea. she say reglan i s helped for only few days. she wanted to increase the dose. Counseled about eating small, frequent meals and snacks throughout the day so stomach is never empty. High-protein foods and complex carbohydrates might be especially helpful. Advised to try sidra. Will prescribe Vitamin B6 Flowsheet Date 09/15/2016 Wilcox Score Blood Edema Fundus Height Fundus Units Glucose Ketones Leukocytes Nitrite Labor Signs Protein Cervic Dilation Cervic Effacement Cervic Station Type Weight in lbs Pre/Post Dialysis Refused BP Diastolic BP Location Tested BP Systolic BP Type Fetus Heart Rate Present Fetus Movement Comments Flowsheet Date 10/11/2016 Wilcox Score Blood Edema Fundus Height Fundus Units Glucose Ketones Leukocytes Nitrite Labor Signs Protein Cervic Dilation Cervic Effacement Cervic Station neg none 13 cm none negative none trace Type Weight in lbs Pre/Post Dialysis Refused 117.910452596208 BP Diastolic BP Location Tested BP Systolic BP Type 66 88 sitting Fetus Heart Rate Present A 155 Present Fetus Movement A No Comments her morning sickness improvi ng as per patient. She say she went to ER 3 wks ago for nausea and vomiting and was given IVF and was sent home on zofran. But now she say nausea and vomiting improved.C/O Constipation. Advised to eat high fiber date. Gave samples of linzess.D/W Patient all lab work and ultrasound, nuswab and pap Flowsheet Date 11/08/2016 Wilcox Score Blood Edema Fundus Height Fundus Units Glucose Ketones Leukocytes Nitrite Labor Signs Protein Cervic Dilation Cervic Effacement Cervic Station neg none none negative none neg Type Weight in lbs Pre/Post Dialysis Refused 121.797405733972 BP Diastolic BP Location Tested BP Systolic BP Type 56 98 sitting Fetus Heart Rate Present A 156 Present Fetus Movement A Yes Comments she say her nausea and vomit ing improved. she say she started having anxiety and mild depressive symptoms. Denies suicidal or homicidal ideation. counsellor referral ordered. precautions discussed.Patient say she did not do the TSH ordered. Counseled about importance of repeating TSH. She say she will do it today. will check TSH for h/o low TSH level Flowsheet Date 12/06/2016 Wilcox Score Blood Edema Fundus Height Fundus Units Glucose Ketones Leukocytes Nitrite Labor Signs Protein Cervic Dilation Cervic Effacement Cervic Station neg none none negative none trace Type Weight in lbs Pre/Post Dialysis Refused 124.101672253948 BP Diastolic BP Location Tested BP Systolic BP Type 56 84 sitting Fetus Heart Rate Present A 138 Present Fetus Movement A Yes Comments PTL, PREECLAMPSIA PRECAUTION S DISCUSSEDD/W PATIENT LAB WORK. SHE SAY SHE HAS DONE HER ANATOMY US ON 11/29/16. ADVISED NURSE TO GET RECORDS Flowsheet Date 01/03/2017 Wilcox Score Blood Edema Fundus Height Fundus Units Glucose Ketones Leukocytes Nitrite Labor Signs Protein Cervic Dilation Cervic Effacement Cervic Station neg none 24 wks none negative none trace Type Weight in lbs Pre/Post Dialysis Refused 127.803034295855 BP Diastolic BP Location Tested BP Systolic BP Type 62 94 sitting Fetus Heart Rate Present A 157 Present Fetus Movement A Yes Comments Patient reports she has pain in epigastric area which increases with lying down. She say its transient. Counseled about possible causes including acid reflex. BP stable. No signs of preeclampsia. Will prescribe zantac. For possible UTI prescribed macrobid. Urine for C & SPTL, PREECLAMPSIA PRECAUTIONS AND KICK COUNTS DISCUSSEDD/W patient anatomy ultrasound result.Offered 50 g I hour GTT today. Patient say she can not do it today she wanted to do it next visit. Explained her that it need to be done by 28 weeks. She verbalized understanding. RTC in 2 weeks Flowsheet Date 01/09/2017 Wilcox Score Blood Edema Fundus Height Fundus Units Glucose Ketones Leukocytes Nitrite Labor Signs Protein Cervic Dilation Cervic Effacement Cervic Station trace none 24.5 cm none trace Cramping 1+ Type Weight in lbs Pre/Post Dialysis Refused 128.212260188475 BP Diastolic BP Location Tested BP Systolic BP Type 64 98 sitting Fetus Heart Rate Present A 159 Present Fetus Movement A Yes Comments Patient say she had cramping over weekend and also she had spotting after intercourse. She denies any cramping today. sterile speculum exam - possible placenta at cervical os. Cultures done from vaginal area not from cervix because of ? placenta previa. To [facility] & [facility] to r/o PTL and placenta previa. notified nurse Maris in [facility] thoroughly about patient and advised her no cervical exams in [facility]. OB US to check position of placenta.patient also says she had nausea and vomiting over weekend and could not keep any food. she denies any nausea and vomiting today. will get abdominal ultrasound to r/o gall stones. CMP. advised patient pelvic rest. PTL, PREECLAMPSIA PRECAUTIONS AND KICK COUNTS DISCUSSED. Orders faxed to [facility] & [facility]. Notified Dr. Turner carbon paper machine operator and called him in to the room when I did speculum exam to show him the findings of ? placenta previa. D/W patient about above findings. all questions answered. she wanted to do 1 hr GTT next week. Flowsheet Date 01/24/2017 Wilcox Score Blood Edema Fundus Height Fundus Units Glucose Ketones Leukocytes Nitrite Labor Signs Protein Cervic Dilation Cervic Effacement Cervic Station neg none 23 cm none negative none neg Type Weight in lbs Pre/Post Dialysis Refused 132.113530890398 BP Diastolic BP Location Tested BP Systolic BP Type 64 102 sitting Fetus Heart Rate Present A 142 Present Fetus Movement A Yes Comments no vb, no ic, gtt/tdap, kick counts , us Flowsheet Date 02/12/2017 Wilcox Score Blood Edema Fundus Height Fundus Units Glucose Ketones Leukocytes Nitrite Labor Signs Protein Cervic Dilation Cervic Effacement Cervic Station neg none 31 wks none negative none neg 0cm 0% Type Weight in lbs Pre/Post Dialysis Refused 134.716767975936 BP Diastolic BP Location Tested BP Systolic BP Type 60 88 sitting Fetus Heart Rate Present A 134 Present Fetus Movement A Yes Comments will recheck CBC for thrombo cytopenia, and CMP today and continue to repeat q 2 weeks. Antepartum NST starting at 32 weeks Flowsheet Date 02/28/2017 Wilcox Score Blood Edema Fundus Height Fundus Units Glucose Ketones Leukocytes Nitrite Labor Signs Protein Cervic Dilation Cervic Effacement Cervic Station neg none 33 wks none negative none neg Type Weight in lbs Pre/Post Dialysis Refused 137.244045859272 BP Diastolic BP Location Tested BP Systolic BP Type 52 98 sitting Fetus Heart Rate Present A 135 Present Fetus Movement A Yes Comments Emerita reports mild crampin g, otherwise no complaints. NST for 2-vessel cord. 2 wks ANI, 33.5 wks. Flowsheet Date 03/14/2017 Wilcox Score Blood Edema Fundus Height Fundus Units Glucose Ketones Leukocytes Nitrite Labor Signs Protein Cervic Dilation Cervic Effacement Cervic Station neg none 34 cm none negative Josiah Vera neg Type Weight in lbs Pre/Post Dialysis Refused 141.658070890766 BP Diastolic BP Location Tested BP Systolic BP Type 80 104 sitting Fetus Heart Rate Present A 141 Present Fetus Movement A Yes Comments 35.2 ANI h/o 2vc, weekly NST . Routine labs today. Next NST 03-19-17. ANI in 1 wk Flowsheet Date 03/21/2017 Wilcox Score Blood Edema Fundus Height Fundus Units Glucose Ketones Leukocytes Nitrite Labor Signs Protein Cervic Dilation Cervic Effacement Cervic Station neg none 35 cm none negative Cornell Vera neg 1cm 70% -1 Type Weight in lbs Pre/Post Dialysis Refused 143.248109175990 BP Diastolic BP Location Tested BP Systolic BP Type 74 114 sitting Fetus Heart Rate Present A 140 Present Fetus Movement A Yes Comments 36.2 ANI, ANI in 1 wk Flowsheet Date 03/28/2017 Wilcox Score Blood Edema Fundus Height Fundus Units Glucose Ketones Leukocytes Nitrite Labor Signs Protein Cervic Dilation Cervic Effacement Cervic Station neg none 36 none negative Uterine Contract ions neg 3cm 100% 0 Type Weight in lbs Pre/Post Dialysis Refused 144.030755498973 BP Diastolic BP Location Tested BP Systolic BP Type 74 110 sitting Fetus Heart Rate Present A 144 Present Fetus Movement A Yes Comments to L&D Flowsheet Date 05/08/2017 Wilcox Score Blood Edema Fundus Height Fundus Units Glucose Ketones Leukocytes Nitrite Labor Signs Protein Cervic Dilation Cervic Effacement Cervic Station Type Weight in lbs Pre/Post Dialysis Refused 127.201799229672 BP Diastolic BP Location Tested BP Systolic BP Type 58 R arm 84 sitting Fetus Heart Rate Present Fetus Movement Comments Menstrual History Last Menstrual Date Menses Monthly On Bcp Conception Prior Menses Frequency Hcg Plus Date Menarche Onset Age 1007/03/2016 true Genetic Screening And Infection History Question Response Note Patient's Age Will Be 35 Yea rs Or Older At Estimated Date of Delivery false Thalassemia (Arabic, Indonesian, Mediterranean, Or Background): MCV < 80 false Neural Tube Defect (Meningomyelocele, Spina Bifi da, Or Anencephaly) false Congenital Heart Defect false Down Syndrome false Camron-Sachs (eg, Zoroastrian, Cajun, Lithuanian-[place]) f alse Farooq Disease false Sickle Cell Disease Or Trait () false Hemophilia Or Other Blood Disorders false Muscular Dystrophy false Cystic Fibrosis false Steuben's Chorea false Mental Retardation/Autism false If Yes, Was Person Tested For Fragile X? false Other Inherited Genetic Or Chromosomal Disorder false Maternal Metabolic Disorder (eg, Type 1 Diabetes , PKU) false Patient Or Baby's Father Had A Child With Defects Not Listed Above false Recurrent Loss, Or A Stillbirth false Medications (including Suppl ements, Vitamins, Herbs, OTC Drugs), Illicit/Recreational Drugs, Alcohol true see list If Yes, Agent(s) And Strength/Dosage false Any Other Genetic History false Live With Someone With TB Or Exposed To TB false Patient Or Partner Has History Of Genital Herpes false Rash Or Viral Illness Since Last Menstrual Perio d false History Of STD, Gonorrhea, Chlamydia, HPV, Syphi lis true hpv Other Infection History false Plans and Education First Trimester Discussed Date Discussion Item Discussion Note Discuss ed By 09/04/2016 [facility] 09/[facility]2016 [facility] 09/04/2016 Intimate partner violence [facility] 09/04/2016 Environmental/work hazards s [facility]09/04/2016 Screening for aneuploidy [facility] y09/04/2016 Nutrition counseling ; special diet; dietary precautions (mercury, listeriosis) [facility] 09/04/2016 Childbirth classes/h ospital facilities [facility] 09/04/2016 HIV and other routin e tests 09/04/2016 Risk factors identif ied by history [facility] 09/04/2016 Weight gain counseling [facility]09/04/2016 [facility]2016 Teratogens [facility] 09/04/2016 Use of any medicatio ns (including supplements, vitamins, herbs, or OTC drugs) [facility] 09/04/2016 bottle, pt january b marie evans-RMA 12/06/16 [facility] 09/04/2016 [facility] 09/04/2016 Tobacco/smoking cess ation counseling (ask, advise, assess, assist, and arrange) [facility] 09/04/2016 Illicit/recreational drugs [facility] 09/04/2016 Dental care [facility] 09/04/2016 Travel [facility] 09/04/2016 Seat belt use [facility] 09/04/2016 Indications for ultrasonography [facility] 09/04/2016 Avoidance of saunas or hot tubs [facility] 09/04/2016 Toxoplasmosis precau tions (cats/raw meat) [facility] Second Trimester Discussed Date Discussion Item Discussion Note Discuss ed By 12/06/2016 Selecting a care provider [facility] [place] [facility] 12/06/2016 family planning/tubal sterilization 03/14/17 PPBTL, papers signed today, cb-rma 12/06/2016 Abnormal lab values [facility] 12/06/2016 Signs and symptoms o f labor [facility] 12/06/2016 [facility] violence [facility] 12/06/2016 Tobacco/smoking cess ation counseling (ask, advise, assess, assist, and arrange) [facility] Third Trimester Discussed Date Discussion Item Discussion Note Discuss ed By 03/14/2017 Anesthesia plans epidural 03/14/2017 Circumcision baby boy, yes to circ cbrads haw5 03/14/2017 bottle 03/28/2017 Labor signs wtc/wlb given mwasserman Delivery Information Delivery Date Delivery Type Labor Anesthesia Weeks Gestation Incision Type Labor Labor Length Hrs Delivered By Post Complications Tubal Sterilization Discharge Date Comments Bucky larkin [facility] Turner None true 04/01/2017 Dr. [facility] [place] Discharge Information Feeding Method Contraceptive Method Maternal HG B and HCT Levels Bottle PPBTL scheduled for 05/11/17
== END 2024-10-16 07:59 | disposition home or self-care (01) ==
LOC: ANHLAB 07:59
PROVIDERS: PCP Nurse Practitioner Adult Health; Visit Provider Nurse Practitioner Adult Health
DX: E83.52 Hypercalcemia (principal)
CPT/HCPCS: 36415; 82306

== ENCOUNTER 2024-11-28 00:28 | Day surgery (SDC) | payer OTHER, SELFPAY ==
[2024-11-18 13:47] VITALS: BMI 19.0
[2024-11-28 11:21] VITALS: BP 96/63; PULSE 72; RESP 19; TEMP 36.3; O2SAT 100
--- NOTE | 2024-11-28 11:35 | PM.IMHP ---
H&P: [facility] History of Present Illness Date/Time: 11/28/24 11:35 Chief Complaint: abdominal pain -change in bowel habits Narrative: the patient carries a diagnosis of colitis, based on a CT scan finding back in 2018 apparently showing a thickened colonic wall. However, the patient has not had rectal bleeding, urgency, tenesmus or fever. She does complain of occasional moderate to severe crampy lower abdominal pain which gets relieved by defecation more than 50% of the times. She referred for colonoscopy. Her bowel habits fluctuate between constipation and diarrhea, with a predominance of constipation. Review of Systems Review of Systems: All systems reviewed & are unremarkable except as noted in HPI and below PMFSH Past Medical History Medical History Colitis Anxiety Surgical History Surgical History (Updated 10/17/24 @ 11:32 by Prerna Fowler MD) H/O LEEP History of endometrial ablation 2021 H/O tubal ligation 2016 Family History Family History Mother Depression Anxiety Hypertension Father History of ETOH abuse Cancer oropharyngeal cancer Cerebrovascular accident Grandparent Depression Anxiety Heart disease Grandparent Cancer lung cancer Diabetes mellitus Other Family history of coronary artery disease Social History Social History (Updated 10/17/24 @ 10:56 by Sonido Vega MA) Smoking status: Never smoker Alcohol intake: current Alcohol use details: 1-4 a week Substance use: current Substance use type: marijuana Do You Feel Safe in your Home?: Yes Lack of Transportation: No Lack of Food: Never True Current Housing: I Have Housing Concerned About Future Housing: No Difficulty Paying Gas/Electric Bills: No Difficulty Paying for Meds: No Currently Unemployed: No Education: Trade/Vocational Certificate Difficulty w/ Childcare or Family Care: No Living arrangements: with family Occupation/Education: occupation Additional occupation/education comments: [employer] Gender identity (if verbalized by the patient): Female Sexual Orientation (if Verbalized by the Patient): Straight or Heterosexual Agree to blood products: Yes Meds Home Medications and Allergies Home Medications ?Medication ?Instructions ?Recorded ?Confirmed ?Type acyclovir 400 mg tablet 400 mg PO .prn cold sores 10/08/24 11/18/24 History alprazolam 0.5 mg tablet 0.5 mg PO QHS PRN anxiety 10/08/24 11/18/24 History cetirizine 10 mg tablet (Zyrtec) 10 mg PO DAILY PRN allergy symptoms 10/08/24 11/18/24 History fluconazole 150 mg tablet 150 mg PO Q72H #2 tabs 10/17/24 11/18/24 Rx sertraline 25 mg tablet 37.5 mg (1.5 x 25 mg) PO DAILY 90 11/25/24 11/28/24 Rx days #135 tabs Allergies Allergy/AdvReac Type Severity Reaction Status Date / Time latex Allergy Unknown Rash Verified 11/28/24 11:20 Vital Signs Vital Signs - 24 hr 11/28/24 11:21 Temperature 97.4 F L Pulse Rate 72 Respiratory Rate 19 Blood Pressure 96/63 L Pulse Oximetry 100 Oxygen Delivery Room Air Exam Const: General: cooperative and healthy appearing Resp: Effort & Inspection: normal respiratory effort and able to speak in complete sentences Auscultation: clear to auscultation bilaterally Cardio: Rate: regular rate Rhythm: regular rhythm GI: Inspection: normal to inspection GI Palp: No No hepatosplenomegaly present Auscultation: normal bowel sounds Rectal Exam: deferred Skin: General skin exam: normal color Psych: Appearance: grossly normal Mental Status: mental status grossly normal Assessment and Plan Assessment and plan (1) Change in stool habits: Code(s): R19.4 - Change in bowel habit Status: Acute Assessment and Plan: The patient's clinical picture is compatible with IBS- constipation. Doubt colitis. The patient is deemed a good candidate for the procedure. Consent signed. Will proceed.
[2024-11-28] MEDS: LACTATED RINGERS 1,000 ML 150 ML IV CONT (11:46)
[2024-11-28] MEDS: ONDANSETRON INJ 4 MG/2 ML VIAL IV PUSH (11:57)
[2024-11-28] MEDS: KETOROLAC 15 MG/ML VIAL (*BKC) IV PUSH (11:59)
--- NOTE | 2024-11-28 12:02 | SUR.PREOP ---
Patient complaining of very bad migraine in pre-op. She states it is also making her nauseous and vomiting. Spoke with Dr. Michael, and per MD order and give 15mg IV toradol and 4mg IV zofran.
[2024-11-28 12:26] VITALS: BP 105/70; PULSE 73; RESP 19; O2SAT 100
[2024-11-28 12:36] VITALS: BP 96/64; PULSE 60; RESP 16; O2SAT 100
[2024-11-28 12:46] VITALS: BP 104/69; PULSE 68; RESP 16; O2SAT 100
== END 2024-11-28 13:00 | disposition home or self-care (01) ==
PROVIDERS: PCP Nurse Practitioner Adult Health; Visit Provider Internal Medicine Gastroenterology
PROC: 0DJD8ZZ Inspection of Lower Intestinal Tract, Via Natural or Artificial Opening Endoscopic (ICD-10-PCS; CPT 45378; principal; 2024-11-28 12:30)
DX: R19.4 Change in bowel habit (principal); R10.84 Generalized abdominal pain; F41.9 Anxiety disorder, unspecified
CPT/HCPCS: 45378; J1885; J2405; J2704; J7120

== ENCOUNTER 2025-01-09 14:57 | Emergency (ER) | payer OTHER, SELFPAY ==
--- OUTSIDE RECORDS SUMMARY | 2025-01-09 14:59 | XMS_ITS | Clinical Summary ---
Author Organization [facility] Address [address] [place] [id number] Care Team Providers Care Anesthesiologist/Physician Name Role Phone Marley Mendoza Primary Care Provider [phone] Allergies Active Allergy Reactions Criticality Noted Date [...] of female sterilization 05/31/2017 Benign gestational thrombocytopenia ([facility]/H[facility]) Immunizations Name Administration Dates Next Due Influenza [...] 68 05/14/2024 10:08 AM CDT Temperature 36.7 C (98 F) 05/14/2024 10:08 AM CDT Respiratory Rate 16 05/14/2024 10:0 [...] COVID-19 Vaccine (2023- season) 2024 10/13/2020, 09/22/2020 Cervical Cancer Screening Pap with HPV Testing (Age 30 to 64) Every 5 Years 07/30/2024 07/30/2019 Cervical Cancer Screening with HPV 07/30/2024 PHQ-2 (Physician [place]) 10/01/2024 05/14/2024 Annual Physical 05/14/2025 05/14/2024, 12/31, 12/28/2021, Additional history exists DTaP, Tdap and Td Vaccines (3 - [...] VE NON-REACT JOSIE 12/29/2021 8:51 PM CDT [facility] Comment: ANTIBODIES TO HCV NOT DETECTED. DOES NOT EXCLUDE THE POSSIBILITY OF EXPOSURE TO HCV. 12/29/2021 8:03 AM CDT [facility] Final Result [facility] [address] [place] [address], [id number] * PAP SMEAR WITH HPV (07/30/2019) 07/30/2019 Narrative 07/30/2019 Ordered by an unspecified provider. us Documents Scanned SCANNING Final Result from Last 3 Months or Most Recently Relevant to Health Maintenance Insurance [facility] Advance Directives * Full Code (Latest Code Status on File) Date Activated Date Inactivated Comments 11/25/2021 9:58 AM 11/25/2021 3:09 PM Care Teams Anesthesiologist/Physician Relationship Specialty Start Date End Date Marley Mendoza APNP [address] [place] [address] PCP - General NURSE PRACTITIONER 10/30/19
--- NOTE | 2025-01-09 15:00 | ED.URI ---
HPI - URI/Sore Throat General Chief Complaint: Upper Respiratory Infection Stated Complaint: Sore Throat Time Seen by Provider: 01/09/25 15:04 Source: patient, RN notes reviewed and old records reviewed Mode of arrival: ambulatory Limitations: no limitations History of Present Illness HPI Narrative: 39-year-old female presents to the [facility] with complaints of a sore throat that started Sunday or Sunday, 2-3 days. Son tested positive for strep throat today Related Data Home Medications ?Medication ?Instructions ?Recorded ?Confirmed ?Last Taken ?Type acyclovir 400 mg tablet 400 mg PO .prn cold sores 10/08/24 11/18/24 Unknown History alprazolam 0.5 mg tablet 0.5 mg PO QHS PRN anxiety 10/08/24 11/18/24 Unknown History cetirizine 10 mg tablet (Zyrtec) 10 mg PO DAILY PRN allergy symptoms 10/08/24 01/09/25 Unknown History Allergies Allergy/AdvReac Type Severity Reaction Status Date / Time latex Allergy Unknown Rash Verified 01/09/25 15:06 Review of Systems Review of Systems: All systems reviewed & are unremarkable except as noted in HPI and below Constitutional: Constitutional: Reports no additional constitutional complaints ENT: Reports as per HPI Cardiovascular: Cardiovascular: Reports no additional cardiovascular complaints, Denies chest pain and Denies dyspnea Respiratory: Respiratory: Reports no additional respiratory complaints, Denies chest congestion, Denies cough and Denies dyspnea Musculoskeletal: Musculoskeletal: Reports no additional musculoskeletal complaints Integumentary/Breasts: Skin/Breast: Reports system reviewed and no additional complaints, except as docu PMFSH Past Medical History Medical History SVT (supraventricular tachycardia) Colitis Anxiety Surgical History Surgical History H/O LEEP History of endometrial ablation 2021 H/O tubal ligation 2016 Family History Family History Mother Depression Anxiety Hypertension Father History of ETOH abuse Cancer oropharyngeal cancer Cerebrovascular accident Grandparent Depression Anxiety Heart disease Grandparent Cancer lung cancer Diabetes mellitus Other Family history of coronary artery disease Social History Social History (Reviewed 01/09/25 @ 15:18 by BARB Lund Smoking status: Never smoker Alcohol intake: current Alcohol use details: 1-4 a week Substance use: current Substance use type: marijuana Do You Feel Safe in your Home?: Yes Lack of Transportation: No Lack of Food: Never True Current Housing: I Have Housing Concerned About Future Housing: No Difficulty Paying Gas/Electric Bills: No Difficulty Paying for Meds: No Currently Unemployed: No Education: Trade/Vocational Certificate Difficulty w/ Childcare or Family Care: No Living arrangements: with family 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 There is no relevant family history pertinent to the patient complaint. Exam Const: General: cooperative, healthy appearing, comfortable, no acute distress, well developed, alert and well nourished Nutritional Appearance: well nourished Orientation/consciousness: patient oriented x3 Limitations: no limitations HENMT: Head: normal to inspection Ears: hearing grossly normal bilaterally, external ears normal, TM's normal bilaterally, EAC's normal, mastoids normal and no periauricular adenopathy Face/Nose/Sinus: Normal external nose present, Normal nares present and No nasal discharge present Mouth: Yes Normal oral and palatal mucosa present, Yes lip normal, Yes tongue normal and Yes moist mucous membranes Throat: posterior oropharynx normal, uvula midline and no uvular edema Eyes: General: appearance normal, both eyes and all related structures Alignment and Position: alignment normal Neck: Neck: normal visual inspection, full ROM, no lymphadenopathy and no meningeal signs Chest: Chest palpation & inspection: normal inspection of the chest Resp: Effort & Inspection: normal respiratory effort and able to speak in complete sentences Auscultation: clear to auscultation bilaterally, no crackles, no rales, no rhonchi and no wheezes Cardio: Rate: regular rate Skin: General skin exam: normal color and no rashes or lesions noted Neuro: General: patient oriented x3, gait normal, moves all extremities and no meningeal signs Cognition (Neuro): normal cognition Speech: normal speech Gait exam (Neuro): Normal gait present Extrem: General: normal to inspection, full ROM, capillary refill normal and normal gait Psych: Appearance: grossly normal and well kempt Mental Status: mental status grossly normal Speech and movement: Normal speech and movement present and Clear speech present Affect: normal affect Attitude: cooperative Course Course Level of Care: Express Care Visit Vital Signs Vital signs: Vital Signs Temperature 98.1 F 01/09/25 15:01 Pulse Rate 82 01/09/25 15:01 Respiratory Rate 16 01/09/25 15:01 Blood Pressure 127/66 01/09/25 15:01 Pulse Oximetry 98 01/09/25 15:01 Oxygen Delivery Room Air 01/09/25 15:01 Temperature 98.1 F 01/09/25 15:01 Pulse Rate 82 01/09/25 15:01 Respiratory Rate 16 01/09/25 15:01 Blood Pressure 127/66 01/09/25 15:01 Pulse Oximetry 98 01/09/25 15:01 Oxygen Delivery Room Air 01/09/25 15:01 Reviewed MDM - URI/Sore Throat MDM Narrative Medical decision making narrative: Patient sitting in exam room. Nontoxic, vitals stable. Patient in no acute distress patient with complaints of headache, 2-3 day history of sore throat. Exposure to strep. Wanting to be tested. Strep test in clinic is negative. Will culture Patient appropriate for outpatient treatment and follow-up Discharge instructions reviewed with patient, as well as provided in writing per nursing staff. The instructions also include specific and strict return/GO TO THE ER as well as f/u information. All questions have been answered, and the patient deny any further questions with discharge and discharge plan. Some parts of this dictation were generated by voice recognition software and may contain typographical and/or grammatical inaccuracies. Differential Diagnosis Differential diagnosis: Likely upper respiratory infection, otitis media, sinusitis, viral infection and pharyngitis Lab Data Labs: Lab Results 01/09/25 Range/Units 15:15 POC Grp A Strep Screen Negative (Negative) Reviewed Critical Care Time Critical Care Time Critical Care Time: No Discharge Plan Discharge Clinical Impression: Pharyngitis Qualifiers: Pharyngitis/tonsillitis etiology: unspecified etiology Qualified Code(s): J02.9 - Acute pharyngitis, unspecified Patient Disposition: Home Condition: Stable Instructions: Pharyngitis (ED) Additional Instructions: Your rapid strep swab was negative today at [facility]. A throat culture will be sent to the laboratory for further testing. If the test is positive, you will receive a phone call within 48 hours and an appropriate antibiotic will be initiated at that time. It is very important to treat your symptoms. Drink plenty of water, Gatorade, Pedialyte, ice pops or Jell-O. -Alternate Tylenol and Motrin per package directions for fever or pain. You can alternate every 4 hours -Antihistamine medication such as Zyrtec/Claritin/Carmela during the day can help improve symptoms. -doing daily nasal irrigations can help relieve pressure your sinuses. Things like a Neti pot -Use Flonase twice a day for 5 days then daily to help reduce the inflammation and dry up your sinuses. -You can also use Mucinex. Be sure to drink plenty of water with this medication at least 8 ounces with every dose and it is important to drink 8 to 10 glasses of water per day. Water is a natural decongestant -Eat and drink things that are easy to swallow, like tea or soup, or popsicles. -Oral rinses such as: Salt water gargles and/or may use topical anesthetic (eg. Chloraseptic spray) or lozenges to relieve dryness or throat pain). -Frequent hand washing or hand renal case manager is one of the best ways to prevent spread of infection. -Using a vaporizer or humidifier at night will also help thin secretions and help with coughing up phlegm. -Follow up with primary care provider in 7-10 days if condition is not improving - For new or worsening symptoms go directly to the nearest ER Patient Language: Albanian Prescriptions: No Action alprazolam 0.5 mg tablet 0.5 mg PO QHS PRN (Reason: anxiety) acyclovir 400 mg tablet 400 mg PO .prn cetirizine [Zyrtec] 10 mg tablet 10 mg PO DAILY PRN (Reason: allergy symptoms) fluconazole 150 mg tablet 150 mg PO Q72H Qty: 2 0RF sertraline 25 mg tablet 37.5 mg PO DAILY 90 Days Qty: 135 3RF Follow-up/Referrals: Mali Weir APRN [Primary Care Provider] - 2 Weeks ([facility] follow up) Stand Alone Forms: Work/School Release IP Time of Disposition: 15:15
--- OUTSIDE RECORDS SUMMARY | 2025-01-09 15:00 | XMS_ITS | Clinical Summary ---
Author Organization [facility] [employer] Address [address] [place] [address] Care Team Providers Care Filler In Name Role Phone Alek Turner MD Primary Care Provider [phone] Source Comments [facility] [employer],non-[facility] Affiliates and Associated Physician Practices is amultiple site organization consisting of ambulatory clinics and hospital sitesin [place], [place], [place] and [place]. This disclosure is being madepursuant to the Care Everywhere program and may not contain all information available regarding this patient. Last updated 18.[facility] [employer] Allergies Active Allergy Reactions Criticality Noted Date [...] 84 03/03/2019 9:14 AM CDT Temperature 36.6 C (97.9 F) 03/03/2019 9:14 AM CDT Respiratory Rate 16 03/03/2019 9:14 AM CDT [...] VACCINE (1 - 2023-2 5 season) 2024 DEPRESSION SCREENING 10/01/2024 INFLUENZA VACCINE (Season Ended) 2025 ZOSTER VACCINE (1 of 2) 2037 HIB VACCINE Aged Out No longer eligi ble based on patient's age to complete this topic HPV VACCINE Aged Out No longer eligi ble based on patient's age to complete this topic MENINGOCOCCAL (Group B) VACC INE SHARED DECISION-MAKING Aged Out No longer eligibl e based on patient's age to complete this topic MENINGOCOCCAL GROUPS A/C/Y/W VACCINE Aged Out No longer eligible b ased on patient's age to complete this topic PNEUMOCOCCAL VACCINE Aged Out No long er eligible based on patient's age to complete this topic Care Teams Filler In Relationship Specialty Start Date End Date Alek Turner MD [facility] [place] [address] PCP - General Obstetrics and Gynecology 12/06/17
--- OUTSIDE RECORDS SUMMARY | 2025-01-09 15:00 | XMS_ITS | Data Portability ---
Author Organization [facility] , [facility] Address [address] [place] [address] Assessment No assessment recorded. Plan of Treatment Reminders Order Date Submit Date Provider Last Modified By Organization Details Last Modified Time Details Appointments None recorded. Lab bacterial vaginosis + vaginitis panel, vaginal 2022 023 Halton Ash, [address] [place], [address], 15:47:18 biopsy, tissue 2022 023 [facility], [address] [place], [address], 11:08:31 pap, LB 2022 023 [facility], [address] [place], [address], 14:11:43 HPV E6+E7 mRNA, qualitative PCR, cervix 2022 023 [facility] [facility] [place], [address] [place], [address], 15:47:04 Referral None recorded. Procedures None recorded. Surgeries None recorded. Imaging None recorded. Medication Orders None recorded. Patient TargetsNo targets recorded. Patient InstructionsNo instructions recorded. Reason for Referral None Reported. Results Created Date Observation Date Name Description Value Unit Range Abnormal Flag Note LastModifiedBy Organization Detail LastModifiedTime 07/27/2007/27/2023 TISSU E PATHO LOGY clinical information Polyp Not Available [address] [address] [place], [address], 07/27/2023 11:08:31 07/27/2007/27/2023 TISSU E PATHO LOGY pathologist Amos Mccormick M.D., Board Certi fied in Anato phyllis Patho logy and Clini jsoe alfredo Patho logy. (elec troni c signa ture) Not Available [address] [address] [place], [address], 07/27/2023 11:08:31 07/27/2007/27/2023 TISSU E PATHO LOGY A source Endoc ervix , biops y Not Available [address] [address] [place], [address], 07/27/2023 11:08:31 07/27/2007/27/2023 TISSU E PATHO LOGY [...] [facility] [place] [address] [place] [address] AY, [place] [address] Labor atory Direc tor: TAYE Adorno MD Not Available [address] [address] [place], [address], 07/27/2023 11:08:31 07/27/2007/27/2023 TISSU E PATHO LOGY A diagnosis Fragm ents of benig n endoc ervic al and ectoc ervic al tissu e with blood and mucus , see comme nt. No featu res diagn ostic of dyspl jonn or malig samuel . Not Available [address], [address], 07/27/2023 11:08:31 07/27/2007/27/2023 TISSU E PATHO LOGY [...] CLIEN T SERVI ABDIRASHID. PHONE NUMBE R: 863.6 [phone] 78 Not Available [address], [address], 07/27/2023 11:08:31 07/28/2007/28/2023 THINP REP TIS PAP clinical information: normal None given Not Available [address], [address], 07/28/2023 14:11:42 07/28/2007/28/2023 THINP REP TIS PAP LMP: normal NONE GIVEN Not Available [address], [address], 07/28/2023 14:11:42 07/28/2007/28/2023 THINP REP TIS PAP prev. Pap: normal NONE GIVEN Not Available [address], [address], 07/28/2023 14:11:42 07/28/2007/28/2023 THINP REP TIS PAP prev. BX: normal NONE GIVEN Not Available [address], [address], 07/28/2023 14:11:42 07/28/2007/28/2023 THINP REP TIS PAP source: normal None given Not Available [address] [place], [address], 07/28/2023 14:11:42 07/28/2007/28/2023 THINP REP TIS PAP statement of adequacy: normal Satis facto ry for evalu ation . Endoc ervic al/tr ansfo rmati on zone compo nent prese nt. Age and/o r menst rual statu s not provi ded Not Available [address] [address] [place], [address], 07/28/2023 14:11:42 07/28/2007/28/2023 THINP REP TIS PAP interpretati on/result: normal Cytol ogy Resul ts: Negat yunier for intra epith elial lesio n or malig samuel . Not Available [address] [address] [place], [address], 07/28/2023 14:11:42 07/28/2007/28/2023 THINP REP TIS PAP comment: normal This Pap test has been evalu ated with compu ter eric trae techn ology . Not Available [address] [place], [address], 07/28/2023 14:11:42 07/28/2007/28/2023 THINP REP TIS PAP cytotechnolo gist: normal SXO, CT( CP) CT Scree jovani Locat ion: [facility] [address] [facility] [address] Not Available [address] [address] [place], [address], 07/28/2023 14:11:42 07/28/2007/28/2023 THINP REP TIS PAP [...] NUMBE R: 866.6 97.83 78 Not Available [facility] [address], [place], [address], 07/28/2023 14:11:42 07/23/2007/26/2023 HPV HIGH RISK HPV [...] cervi jose alfredo cytol ogy. Not Available [facility] [address] [place] [address], [address], 07/26/2023 15:47:04 07/23/2007/26/2023 VAGIN ITIS PLUS STD PANEL bacterial vaginosis BV neg negati ve normal Not Available [facility] [employer] [address] [place] [address], [address], 07/26/2023 15:47:18 07/23/2007/26/2023 VAGIN ITIS PLUS STD PANEL minal species C. spp neg negati ve normal Not Available [facility] [employer] [address] [place], [address], 07/26/2023 15:47:18 07/23/2007/26/2023 VAGIN ITIS PLUS STD PANEL minal glabrata C. gla neg negati ve normal Not Available [facility] [employer] [address] [place] [address], [address], 07/26/2023 15:47:18 07/23/2007/26/2023 VAGIN ITIS PLUS STD PANEL trichomonas vaginalis CV/TV TRICH neg negati ve normal Not Available [facility] [address] [place], [address], 07/26/2023 15:47:18 07/23/2007/26/2023 VAGIN ITIS PLUS STD PANEL chlamydia trachomatis CT neg negati ve normal This repor t is inten ded for us in clini jose alfredo monit oring and manag ement of patie nts. It is not inten ded for use in medic al-le gal appli catio n. Not Available [facility] [address] [place], [address], 07/26/2023 15:47:18 07/23/2007/26/2023 VAGIN ITIS PLUS STD PANEL neisseria gonorrhoeae GC neg negati ve normal This repor t is inten ded for us in clini jose alfredo monit oring and manag ement of patie nts. It is not inten ded for use in medic al-le gal appli catio n. Not Available [address], [address], 07/26/2023 15:47:18 Result Notes None recorded. Problems Name Problem SNOMED Code Status Onset Date Resolution Date Notes Provider Name and Address Organization Details Recorded Time Generalize d anxiety disorder 69844205 Active 2018 Generalize d anxiety disorder; Progress: Stable Added By: Mere Barrientos Add to Current Problems: YES ProblemSta tus: Current Not Available [facility] 21:55:47 Problem Notes None recorded. Procedures Surgical History Date Name Laterality Status Provider Name and Address Organization Details Recorded Time 07/23/20 Cervical Polypectomy completed Samuel Cedeno, [address] [facility], [place], [address], [facility] 07/23/2023 17:54:10 08/30/20 Date of Last Pap Smear completed Maya Finn [place] [facility] 07/10/2023 11:31:33 LEEP completed Maya Finn [place] [facility] IV 07/10/2023 11:31:34 D & C completed Maya [facility] 07/10/2023 11:31:34 Endometrial Ablation completed Maya Finn [place] - [facility] IV 07/10/2023 11:31:34 Sterilization completed Maya [facility] - [facility] IV 07/10/2023 11:31:34 Imaging Results None recorded. Procedure Notes None recorded. Medical Equipment None Reported. Allergies Allergen ID Allergen Name Allergen Category Reaction Reaction Severity Criticality Documentation Date Start Date Code Code System Note Provider Name and Address Organization Details Recorded Time 177971 latex environme nt,medica tion Not available Not available Not available 07/10/2023 07826 91 RxNorm Not Available Not Available Not [...] oral Tablet, Extended Release 24 hr RxNorm: 501100 Allow Substitu tion: True Refill Denied: No Edited by: neelam ghosh(Mere Stahl ) on 07/30/20 19 Stopped by: neelam ghosh(Mere Stahl ) on Not Available Not Available Not Available Vitals Date Recorded Body weight Body mass index (BMI) Body height Body temperature Systolic blood pressure Diastolic blood pressure Provider Name and Address Organization Details Last Updated DateTime 3 65742.6 g 19.9 kg/m2 172.72 cm 97.5 [degF] 110 mm[Hg] 80 mm[Hg] Maya Finn [facility] 11:37:23 Date Recorded Body height Body mass index (BMI) Body weight Systolic blood pressure Diastolic blood pressure Provider Name and Address Organization Details Last Updated DateTime 07/23/2023 172.72 cm 198.3 kg/m2 574744.4 5 g 120 mm[Hg] 76 mm[Hg] Stephanie Holder [place] [facility] 16:34:48 Social History Question Answer Notes LastModified by Organizat ion Details LastModified Time Tobacco Smoking Status Never Smoker Maya Finn [facility], [facility] 07/10/2023 11:31:34 What Is Your Level Of Alcohol Consumption? Occasional [email or web address] Information not available 07/10/2023 How Many Years Have You Consumed Alcohol? 15 Information not available 07/10/2023 Are You Blind Or Do You Have Difficulty Seeing? No [email or web address] Information not available 07/10/2023 Are You Currently Employed? Yes [email or web address] Information not available 07/10/2023 Are You Deaf Or Do You Have Serious Difficulty Hearing? No Information not available 07/10/2023 What Type Of Diet Are You Following? REGULAR [email or web address] Information not available 07/10/2023 Do You Or Have You Ever Used E-cigarettes Or Vape? Never Used Electronic Cigarettes [email or web address] Information not available 07/10/2023 What Is The Highest Grade Or Level Of School You Have Completed Or The Highest Degree You Have Received? 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 [email or web address] Information not available 07/10/2023 Are You Sexually Active? Yes [email or web address] Information not available 07/10/2023 Do You Or Have You Ever Used Any Other Forms Of Tobacco Or Nicotine? No [email or web address] Information not available 07/10/2023 Sex: Unknown Functional Status Question Answer Note LastModified by Organization D etails LastModified Time What is your exercise level? Moderate [email or web address] Information not available 07/10/2023 Mental Status None recorded. Family History Relationship Description Onset Age of this Age Resolved Age Notes LastModified by Organization Details LastModified Time Mother Hypertensive disorder [email or web address] Not available 2022 11:31:33 Medical History Condition [...] SNOMED-CT Code Diagnosis ICD10 Code Diagnosis Note [id number] RAUL PATEL [facility] [address] [place] [address] 07/10/2023 10:54:30 07/11/2023 12:23:45 Vaginal irritation 889844974 N89.8 Last seen in our office in 2019. Received care from [facility] after that. Will obtain records.Hx of cervical [...] to have another evaluation for cervical polyp. [id number] Samuel Cedeno DO [facility] [address] [place] [address] 07/23/2023 16:30:06 07/24/2023 08:56:47 Acute vaginitis 87656878 N76.0 Screening for malignant neoplasm of cervix 632639244 Z12.4 Polyp of cervix 62879108 N84.1 Health Concerns Section Related Observation LastModified by Organization Detai ls LastModified Time None Recorded Concern Status LastModified by Organization Details LastModified Time None Recorded Advance Directives Directive None Recorded Payers Encounter Date Sequence Insurance Name Policy Number Policy Gooden Covered Member ID Gooden Member ID Guarantor Name 07/10/2023 1 [employer] OPEN [employer]ESS Emerita Bah [id number] Emerita Bah 07/23/2023 1 [employer] - [employer]ESS Emerita Bah [id number] H Emerita Bah Notes Date Note Type Note Provider Name and Address Organization Details Recorded Time 07/10/2023 text/html Emerita is here because she believes she has a cervical polyp. She states that she is irritated and has a history of this issue. Has had issue for about a month around. Started after a bad yeast infection. KARMEN ANGELES, [employer] [address] [place], [address], [facility] 07/10/2023 12:26:13 07/23/2023 text/html Vaginal/Vulvar ProblemReported bypatient.Location:[facility] Quality:irritation Severity:moderate Context:sexually active Alleviating Factors:none Aggravating Factors:none Associated Symptoms:vaginal irritation Samuel Cedeno, DO [address] [facility], [place], [address], [facility] [facility] 07/24/2023 23:39:04 OBGyn Episode No OBEpisode recorded.
[2025-01-09 15:01] VITALS: BP 127/66; PULSE 82; RESP 16; TEMP 36.7; O2SAT 98
--- OUTSIDE RECORDS SUMMARY | 2025-01-09 15:01 | XMS_ITS | Data Portability ---
Author Organization [facility] Address [address] [place] [address] Assessment No assessment recorded. Plan of Treatment Reminders Order Date Submit Date Provider Last Modified By Organization Details Last Modified Time Details Appointments None recorded. Lab pap, IG + HPV, cervical 2017 018 [facility], [address], [place], [address], 8 08:34:26 bacterial vaginosis + vaginitis panel, vaginal 2017 018 [place], [address], [place], [address], 8 06:06:15 HSV (1+2) DNA, qual, PCR, unspecifi ed specimen [facility], [address], [place], [address], 8 20:00:24 culture, vaginal/r ectal, streptoco ccus group B 2017 018 [place] [facility], [address], [place], [address], 8 06:06:16 urinalysi s, dipstick 2017 Alberto ortega In-Office Order, Internal Use Only DO Not Attach Compendium DO Not Attach Compendium, Do Not Delete/merge, [id number] 8 14:02:20 test, urine 2016 017 shannon In-Office Order, Internal Use Only DO Not Attach Compendium DO Not Attach Compendium, Do Not Delete/merge, [id number] 7 11:21:14 urinalysi s, dipstick 2016 017 EPHRAIM In-Office Order, Internal Use Only DO Not Attach Compendium DO Not Attach Compendium, Do Not Delete/merge, [id number] 7 17:33:48 pathology study 2016 017 [facility], [address], [place], [address], 7 16:18:11 urinalysi s, dipstick 2016 017 shannon In-Office Order, Internal Use Only DO Not Attach Compendium DO Not Attach Compendium, Do Not Delete/merge, [id number] 7 18:19:04 test, urine 2016 017 shannon In-Office Order, Internal Use Only DO Not Attach Compendium DO Not Attach Compendium, Do Not Delete/merge, [id number] 7 18:19:04 pap, IG + HPV, cervical 2016 017 [place] [facility], [address], [place], [address], 7 16:16:17 HSV (1+2) DNA, qual, PCR, unspecifi ed specimen 2016 017 [place] [facility], [address], [place], [address], 7 14:12:57 bacterial vaginosis + vaginitis panel, vaginal 2016 017 [facility], [address], [place], [address], 7 14:12:56 culture, vaginal/r ectal, streptoco ccus group B 2016 017 [place] [facility], [address] [address], [place], [address], 7 14:12:57 urinalysi s, dipstick 2016 017 hema In-Office Order, Internal Use Only DO Not Attach Compendium DO Not Attach Compendium, Do Not Delete/merge, [id number] 7 09:54:40 urinalysi s, dipstick 2016 017 hema In-Office Order, Internal Use Only DO Not Attach Compendium DO Not Attach Compendium, Do Not Delete/merge, [id number] 7 13:28:58 Referral None recorded. Procedures None recorded. Surgeries None recorded. Imaging None recorded. Medication Orders multivita min tablet 2017 018 [id number], [address], [place], [place], [id number], 8 12:45:53 calcium 600 mg (as carbonate )-vitamin D3 20 mcg (800 unit) tablet 2017 018 [id number], [address], [place], [place], [id number], 8 12:46:20 Lexapro 20 mg tablet 2017 018 [facility][id number], [address], [place], [place], [id number], 8 12:45:52 Orilissa 150 mg tablet 2017 018 [facility][id number], [address], [place], [place], [id number], 8 12:45:53 escitalop yosi 10 mg tablet 2016 017 [facility] [place], [address], 7 17:40:36 Patient TargetsNo targets recorded. Patient Instructions Encounter Date Encounter Id Patient Instructions Last Modified By Organization Details Last Modified Time 05/08/2017 [id number] anxiety disorder: care instructions shannon Not available 05/08/2017 17:40:36 05/14/2018 [id number] painful menstrual cramps: care instructions shannon Not available 05/14/2018 12:45:46 endometriosis: care instructions shannon Not available 05/14/2018 12:45:46 Reason for Referral None Reported. Results Created Date Observation Date Name Description Value Unit Range Abnormal Flag Note LastModifiedBy Organization Detail LastModifiedTime 05/14/20 18 05/14/2018 urina lysis , dipst ick Leukocytes Negati ve Not Available In-Office Order Internal Use Only DO Not Attach Compendium DO Not Attach Compendium, Do Not Delete/merge, [id number] 05/14/2018 11:55:24 05/14/20 18 05/14/2018 urina lysis , dipst ick Nitrite negati ve Not Available In-Office Order Internal Use Only DO Not Attach Compendium DO Not Attach Compendium, Do Not Delete/merge, [id number] 05/14/2018 11:55:24 05/14/20 18 05/14/2018 urina lysis , dipst ick Urobilinogen .2 Not Available In-Of fice Order Internal Use Only DO Not Attach Compendium DO Not Attach Compendium, Do Not Delete/merge, [id number] 05/14/2018 11:55:24 05/14/20 18 05/14/2018 urina lysis , dipst ick Protein Negati ve Not Available In-Office Order Internal Use Only DO Not Attach Compendium DO Not Attach Compendium, Do Not Delete/merge, [id number] 05/14/2018 11:55:24 05/14/20 18 05/14/2018 urina lysis , dipst ick pH 6.0 Not Available In-Office Order Internal Use Only DO Not Attach Compendium DO Not Attach Compendium, Do Not Delete/merge, [id number] 05/14/2018 11:55:24 05/14/20 18 05/14/2018 urina lysis , dipst ick Blood Negati ve Not Available In-Office Order Internal Use Only DO Not Attach Compendium DO Not Attach Compendium, Do Not Delete/merge, 05/14/2018 11:55:24 05/14/20 18 05/14/2018 urina lysis , dipst ick Specific Littcarr 1.025 Not Available In-Off ice Order Internal [...] 06/01/2017 urina lysis , dipst ick Specific Littcarr 1.020 Not Available In-Off ice Order Internal [...] DO Not Attach Compendium, Do Not Delete/merge, [id number] 05/31/2017 18:11:42 05/31/20 17 06/01/2017 urina lysis , dipst ick Color Yellow Not Available In-Office Order Internal Use Only DO Not Attach Compendium DO Not Attach Compendium, Do Not Delete/merge, [id number] 05/31/2017 18:11:42 05/31/20 17 05/31/2017 pregn lorraine test, urine HCG negati ve Not Available In-Office Order Internal Use Only DO Not Attach Compendium DO Not Attach Compendium, Do Not Delete/merge, [id number] 05/31/2017 10:48:58 05/08/20 17 05/08/2017 pregn lorraine test, urine HCG negati ve Not Available In-Office Order Internal Use Only DO Not Attach Compendium DO Not Attach Compendium, Do Not Delete/merge, [id number] 05/08/2017 16:43:10 05/08/20 17 05/08/2017 urina lysis , dipst ick Leukocytes Negati ve Not Available In-Office Order Internal Use Only DO Not Attach Compendium DO Not Attach Compendium, Do Not Delete/merge, [id number] 05/08/2017 16:42:16 05/08/20 17 05/08/2017 urina lysis , dipst ick Nitrite negati ve Not Available In-Office Order Internal Use Only DO Not Attach Compendium DO Not Attach Compendium, Do Not Delete/merge, [id number] 05/08/2017 16:42:16 05/08/20 17 05/08/2017 urina lysis , dipst ick Urobilinogen .2 Not Available In-Of fice Order Internal Use Only DO Not Attach Compendium DO Not Attach Compendium, Do Not Delete/merge, [id number] 05/08/2017 16:42:16 05/08/20 17 05/08/2017 urina lysis , dipst ick Protein Negati ve Not Available In-Office Order Internal Use Only DO Not Attach Compendium DO Not Attach Compendium, Do Not Delete/merge, [id number] 05/08/2017 16:42:16 05/08/20 17 05/08/2017 urina lysis [...] 05/08/2017 urina lysis , dipst ick Specific Littcarr 1.025 Not Available In-Off ice Order Internal [...] 03/28/2017 urina lysis , dipst ick Specific Littcarr 1.015 Not Available In-Off ice Order Internal [...] 03/21/2017 urina lysis , dipst ick Specific Littcarr 1.015 Not Available In-Off ice Order Internal [...] 03/14/2017 urina lysis , dipst ick Specific Littcarr 1.020 Not Available In-Off ice Order Internal [...] 02/29/2002/28/2017 urina lysis , dipst ick Specific Littcarr 1.015 Not Available In-Off ice Order Internal [...] 02/12/2017 urina lysis , dipst ick Specific Littcarr 1.015 Not Available In-Off ice Order Internal [...] DO Not Attach Compendium, Do Not Delete/merge, [id number] 02/12/2017 11:44:06 02/13/20 17 02/12/2017 urina lysis , dipst ick Specific Littcarr 1.015 Not Available In-Off ice Order Internal [...] VE non reacti ve Not Available [facility] ([facility]) [address] [place], [address], 03/15/2017 06:07:40 03/14/20 17 03/15/2017 HIV 1+2 AB + HIV 1 p24 Ag, quali tativ e immun oassa y, serum HIV screen 4TH generation wrfx NON REACTI VE non reacti ve Not Available [facility] ([facility]) [address] [place], [address], 03/15/2017 06:07:40 03/14/20 17 03/15/2017 HBsAg (hepa titis B surfa ce Ag), EIA, serum HBsAg screen NEGATI VE negati ve Not Available [facility] ([facility]) [address] [place], [address], 03/15/2017 06:07:41 03/14/20 17 03/17/2017 bacte rial vagin osis + vagin itis panel , vagin al atopobium vaginae LOW - 0 score Not Available [facility] ([facility]) [address] [place], [address], 03/18/2017 06:04:51 03/14/20 17 03/17/2017 bacte rial vagin osis + vagin itis panel , vagin al bvab 2 LOW - 0 score Not Available [facility] ([facility]) [address] [place], [address], 03/18/2017 06:04:51 03/14/2003/17/2017 bacte rial vagin osis [...] IS NOT NECES JAKE. Not Available [facility] ([facility]) [address] [facility], [place], [address], 03/18/2017 06:04:51 03/14/20 17 03/18/2017 bacte rial vagin osis + vagin itis panel , vagin al minal albicans, SHANELLE NEGATI VE negati ve Not Available [facility] ([facility]) [address] [place], [address], 03/18/2017 06:04:51 03/14/20 17 03/18/2017 bacte rial [...] IS NOT NECES JAKE. Not Available [facility] ([facility]) [address] [facility], [place], [address], 03/18/2017 06:04:51 03/14/20 17 03/18/2017 bacte rial vagin osis + vagin itis panel , vagin al trich vag by SHANELLE NEGATI VE negati ve Not Available [facility] ([facility]) [address] [place], [address], 03/18/2017 06:04:51 03/14/20 17 03/18/2017 bacte rial vagin osis + vagin itis panel , vagin al chlamydia trachomatis, SHANELLE NEGATI VE negati ve Not Available [facility] ([facility]) [address] [place], [address], 03/18/2017 06:04:51 03/14/20 17 03/18/2017 bacte rial vagin osis + vagin itis panel , vagin al neisseria gonorrhoeae, SHANELLE NEGATI VE negati ve Not Available [facility] ([facility]) [address] [place], [address], 03/18/2017 06:04:51 03/14/20 17 03/16/2017 HSV (1+2) DNA, qual, PCR, unspe cifie d speci men hsv 1 SHANELLE NEGATI VE negati ve Not Available [facility] ([facility]) [address] [place], [address], 03/18/2017 06:04:51 03/14/20 17 03/16/2017 HSV (1+2) DNA, qual, PCR, unspe cifie d speci men hsv 2 SHANELLE NEGATI VE negati ve Not Available [facility] ([facility]) [address] [place], [address], 03/18/2017 06:04:51 03/14/20 17 03/15/2017 RPR (rapi d plasm a reagi n), serum RPR TNP PLEAS E REFER TO THE FOLLO WING SPECI MEN FOR ADDIT IONAL LAB RESUL TS. SEE: 165-3 44 36-0 Not Available [facility] ([facility]) [address] [place], [address], 03/18/2017 06:04:52 03/14/20 17 03/15/2017 HIV 1+2 AB + HIV 1 p24 Ag, quali tativ e immun oassa y, serum HIV screen 4TH generation wrfx TNP PLEAS E REFER TO THE FOLLO WING SPECI MEN FOR ADDIT IONAL LAB RESUL TS. SEE: 165-3 36-0 Not Available [facility] ([facility]) [address] [place], [address], 03/18/2017 06:04:52 03/14/20 17 03/16/2017 cultu re, [...] N IS NOTED . Not Available [facility] ([facility]) [address] [place], [address], 03/18/2017 06:04:52 03/14/20 17 03/15/2017 HBsAg (hepa titis B surfa ce Ag), EIA, serum HBsAg screen TNP PLEAS E REFER TO THE FOLLO WING SPECI MEN FOR ADDIT IONAL LAB RESUL TS. SEE: 165-3 36-0 Not Available [facility] ([facility]) [address] [facility], [place], [address], 03/18/2017 06:04:53 03/14/20 17 03/15/2017 speci men statu s repor t specimen status report TNP PLEAS E REFER TO THE FOLLO WING SPECI MEN FOR ADDIT IONAL LAB RESUL TS. TEST: 19975 5 RPR, RF[place] Q[place]PR/[place] [address] 5 PANEL 80482 5 34137 0 HBSAG SCREE N SEE: 165-3 36-0 Not Available [facility] ([facility]) [address] [facility], [place], [address], 03/18/2017 06:04:53 05/08/20 17 05/10/2017 patho logy study . COMMEN T MATER IAL SUBMI TTED: . UTERI NE POLYP Not Available [facility] ([facility]) [address] [facility], [place], [address], 05/10/2017 16:18:11 05/08/20 17 05/10/2017 patho logy study . COMMEN T CLINI MELISA PROVI DED ICD-1 0: N84.0 Not Available [facility] ([facility]) [address] [facility], [place], [address], 05/10/2017 16:18:11 05/08/20 17 05/10/2017 patho logy study . COMMEN T DIAGN OSIS: UTERI NE POLYP : - POLYP OID INFAR CTED AND HEMOR RHAGI C TISSU E ([facility] EJ TIBLE WITH PLACE NTAL TISSU E. COMME NT: CLINI DANTE CORRE LATIO N ADVIS ED. THIS CASE WAS REVIE WED FOR QA WITH DR. SUZAN Magñaa WHO AGREE S WITH THE ABOVE DIAGN OSIS. NANCY/0 2016 Not Available [facility] ([facility]) [address] [facility], [place], [address], 05/10/2017 16:18:11 05/08/20 17 05/10/2017 patho logy study . COMMEN T FREDRICK MCLEAN D: . MARKUS Menon MD, PATHO LOGIS T Not Available [facility] ([facility]) [address] [facility], [place], [address], 05/10/2017 16:18:11 05/08/20 17 05/10/2017 patho logy [...] . /LMS LMS/L MS Not Available [facility] ([facility]) [address] [place], [address], 05/10/2017 16:18:11 05/08/20 17 05/10/2017 patho logy study . COMMEN T CPT . 34805 1 Not Available [facility] ([facility]) [address] [place], [address], 05/10/2017 16:18:11 05/08/20 17 05/10/2017 bacte rial vagin osis + vagin itis panel , vagin al trich vag by SHANELLE NEGATI VE negati ve Not Available [facility] ([facility]) [address] [place], [address], 05/11/2017 14:12:56 05/08/20 17 05/10/2017 bacte rial vagin osis + vagin itis panel , vagin al chlamydia trachomatis, SHANELLE NEGATI VE negati ve Not Available [facility] ([facility]) [address] [place], [address], 05/11/2017 14:12:56 05/08/20 17 05/10/2017 bacte rial vagin osis + vagin itis panel , vagin al neisseria gonorrhoeae, SHANELLE NEGATI VE negati ve Not Available [facility] ([facility]) [address] [place], [address], 05/11/2017 14:12:56 05/08/20 17 05/11/2017 bacte rial vagin osis + vagin itis panel , vagin al atopobium vaginae LOW - 0 score Not Available [facility] ([facility]) [address] [place], [address], 05/11/2017 14:12:56 05/08/20 17 05/11/2017 bacte rial vagin osis + vagin itis panel , vagin al bvab 2 LOW - 0 score Not Available [facility] ([facility]) [address] [place], [address], 05/11/2017 14:12:56 05/08/20 17 05/11/2017 bacte rial [...] IS NOT NECES JAKE. Not Available [facility] ([facility]) [address] [facility], [place], [address], 05/11/2017 14:12:56 05/08/20 17 05/11/2017 bacte rial vagin osis + vagin itis panel , vagin al minal albicans, SHANELLE NEGATI VE negati ve Not Available [facility] ([facility]) [address] [place], [address], 05/11/2017 14:12:56 05/08/20 17 05/11/2017 bacte rial [...] IS NOT NECES JAKE. Not Available [facility] ([facility]) [address] [place], [address], 05/11/2017 14:12:56 05/08/20 17 05/10/2017 HSV (1+2) DNA, qual, PCR, unspe cifie d speci men hsv 1 SHANELLE NEGATI VE negati ve Not Available [facility] ([facility]) [address] [place], [address], 05/11/2017 14:12:57 05/08/20 17 05/10/2017 HSV (1+2) DNA, qual, PCR, unspe cifie d speci men hsv 2 SHANELLE NEGATI VE negati ve Not Available [facility] ([facility]) [address] [place], [address], 05/11/2017 14:12:57 05/08/20 17 05/10/2017 cultu re, [...] N IS NOTED . Not Available [facility] ([facility]) [address] [facility], [place], [address], 05/11/2017 14:12:57 05/08/2005/10/2017 pap, IG + HPV, cervi dante HPV aptima POSITI VE negati ve abnormal THIS TEST DETEC TS FOURT EEN HIGH- RISK HPV TYPES (16/1 8/31/ 33/35 /39/4 5/ 51/52 /56/5 8/59/ 66/68 ) WITHO UT DIFFE RENTI ATION . Not Available [facility] ([facility]) [address] [facility], [place], [address], 05/11/2017 16:16:17 05/08/20 17 05/11/2017 pap, IG + HPV, cervi dante diagnosis: COMMEN T abnormal EPITH ELIAL CELL ABNOR MALIT Y. ATYPI DANTE SQUAM OUS CELLS OF UNDET ERMIN ED SIGNI FICAN CE. Not Available [facility] ([facility]) [address] [place], [address], 05/11/2017 16:16:17 05/08/20 17 05/11/2017 pap, IG + HPV, cervi dante specimen adequacy: COMMEN T SATIS FACTO RY FOR EVALU ATION . ENDOC ERVIC AL AND/O R SQUAM OUS METAP LASTI C CELLS (ENDO CERVI DANTE COMPO NENT) ARE PRESE NT. Not Available [facility] ([facility]) [address] [place], [address], 05/11/2017 16:16:17 05/08/20 17 05/11/2017 pap, IG + HPV, cervi dante clinician provided ICD10: RAYNE Santos Z39.2 N84.0 Not Available [facility] ([facility]) [address] [place], [address], 05/11/2017 16:16:17 05/08/20 17 05/11/2017 pap, IG + HPV, cervi dante performed by: RAYNE Santos, CYTOT ANTHONY Santos (ASCP ) Not Available [facility] ([facility]) [address] [place], [address], 05/11/2017 16:16:17 05/08/20 17 05/11/2017 pap, IG + HPV, cervi dante electronical ly signed by: RAYNE CASAREZ MD, PATHO LOGIS T Not Available [facility] ([facility]) [address] [place], [address], 05/11/2017 16:16:17 05/08/20 17 05/11/2017 pap, IG + HPV, cervi dante . . Not Available [facility] ([facility]) [address] [place], [address], 05/11/2017 16:16:17 05/08/20 17 05/11/2017 pap, IG + HPV, cervi dante pathologist provided ICD10: RAYNE Santos R87.6 10 Not Available [facility] ([facility]) [address] [place], [address], 05/11/2017 16:16:17 05/08/20 17 05/11/2017 pap, IG [...] TS DO OCCUR . Not Available [facility] ([facility]) [address] [place], [address], 05/11/2017 16:16:17 05/08/20 17 05/11/2017 pap, IG + HPV, cervi dante test methodology: COMMEN T THIS LIQUI D BASED THINP REP(R ) PAP TEST WAS SCREE YUMIKO WITH THE USE OF AN IMAGE GUIDE Swapna Billings. Not Available [facility] ([facility]) [address] [place], [address], 05/11/2017 16:16:17 05/14/20 18 05/17/2018 bacte rial vagin osis + vagin itis panel , vagin al atopobium vaginae Low - 0 score Not Available [facility] ([facility]) [address] [place], [address], 05/18/2018 06:06:15 05/14/20 18 05/17/2018 bacte rial vagin osis + vagin itis panel , vagin al bvab 2 Low - 0 score Not Available [facility] ([facility]) [address] [place], [address], 05/18/2018 06:06:15 05/14/20 18 05/17/2018 bacte rial [...] e sofia cteri stics deter mined by [employer]. It has not been clear ed or appro viktor by the Food and Drug Admin istra tion. The FDA has deter mined that such clear ance or appro danny is not neces jake. Not Available [facility] ([facility]) [address] [place], [address], 05/18/2018 06:06:15 05/14/2005/17/2018 bacte rial vagin osis + vagin itis panel , vagin al minal albicans, SHANELLE Negati ve negati ve Not Available [facility] ([facility]) [address] [place], [address], 05/18/2018 06:06:15 05/14/2005/17/2018 bacte rial vagin osis + vagin itis panel , vagin al minal glabrata, SHANELLE Negati ve negati ve This test was devel oped and its perfo rmanc e sofia cteri stics deter mined by [employer]. It has not been clear ed or appro viktor by the Food and Drug Admin istra tion. The FDA has deter mined that such clear ance or appro danny is not neces jake. Not Available [facility] ([facility]) [address] [place], [address], 05/18/2018 06:06:15 05/14/2005/17/2018 bacte rial vagin osis + vagin itis panel , vagin al trich vag by SHANELLE Negati ve negati ve Not Available [facility] ([facility]) [address] [place], [address], 05/18/2018 06:06:15 08/14/05/17/2018 bacte rial vagin osis + vagin itis panel , vagin al chlamydia trachomatis, SHANELLE Negati ve negati ve Not Available [facility] ([facility]) [address] [place], [address], 05/18/2018 06:06:15 05/14/20 18 05/17/2018 bacte rial vagin osis + vagin itis panel , vagin al neisseria gonorrhoeae, SHANELLE Negati ve negati ve Not Available [facility] ([facility]) [address] [facility], [place], [address], 05/18/2018 06:06:15 05/14/2005/16/2018 cultu re, vagin al/re [...] n is noted . Not Available [facility] ([facility]) [address] [facility], [place], [address], 05/18/2018 06:06:16 05/14/20 18 05/17/2018 pap, IG + HPV, cervi dante diagnosis: Rayne GALINDO FOR INTRA EPITH ELIAL LESIO N AND RADHA VIDALES . Not Available [facility] ([facility]) [address] [place], [address], 05/21/2018 08:34:26 05/14/20 18 05/17/2018 pap, IG + HPV, cervi dante specimen adequacy: Rayne t Satis facto ry for evalu ation . Endoc ervic al and/o r squam ous metap lasti c cells (endo cervi dante compo nent) are prese nt. Not Available [facility] ([facility]) [address] [place], [address], 05/21/2018 08:34:26 05/14/20 18 05/17/2018 pap, IG + HPV, cervi dante performed by: Rayne Pritchard , Cytot anthony agosto t (ASCP ) Not Available [facility] ([facility]) [address] [place], [address], 05/21/2018 08:34:26 05/14/20 18 05/17/2018 pap, IG + HPV, cervi dante . . Not Available [facility] ([facility]) [address] [place], [address], 05/21/2018 08:34:26 05/14/20 18 05/17/2018 pap, IG [...] ts do occur . Not Available [facility] ([facility]) [address] [facility], [place], [address], 05/21/2018 08:34:26 05/14/20 18 05/17/2018 pap, IG + HPV, cervi dante test methodology: Commen t This liqui d based ThinP rep(R ) pap test was scree yumiko with the use of an image guide swapna billigns. Not Available [facility] ([facility]) [address] [facility], [place], [address], 05/21/2018 08:34:26 05/14/20 18 05/21/2018 pap, IG + HPV, cervi dante HPV aptima Negati ve negati ve This test detec ts fourt een high- risk HPV types (16/1 8/31/ 33/35 /39/4 5/ 51/52 /56/5 8/59/ 66/68 ) witho ut diffe renti ation . Not Available [facility] ([facility]) [address] [facility], [place], [address], 05/21/2018 08:34:26 03/05/20 17 03/05/2017 non-s tress test No observ ation record ed. [facility] [address] [place], [address], 03/14/2017 11:16:58 03/13/20 17 non-s tress test No observ ation record ed. [facility] ([facility] [address] [place], [address], 03/14/2017 11:16:58 03/19/20 17 03/19/2017 non-s tress test No observ ation record ed. [facility] [address] [place], [address], 03/21/2017 14:39:37 03/26/20 17 03/26/2017 imagi ng/di emos tic resul t No observ ation record ed. [facility] ([facility] [address] [facility], [place], [address], 03/28/2017 15:48:40 Result Notes None recorded. Problems Name Problem SNOMED Code Status Onset Date Resolution Date Notes Provider Name and Address Organization Details Recorded Time Dysmenorr hea 056080384 Active 2017 Alek ChinoOjhnny null, [place] - [facility] 8 12:42:03 Endometri osis (clinical ) 261824158 Active 2017 Alek ChinoJohnny [place], [place] [facility] 8 12:42:35 Anxiety 93529327 Active 2017 Alek pierce, [place] - [facility] 8 12:45:21 Absent blood vessel in umbilical cord 735304473 Completed 2016 2 VESSEL CORD Shama Kelly [place], [place] - [facility] 7 16:38:33 Absent blood vessel in umbilical cord 448683163 Completed 201605/14/2018 2 VESSEL CORD Alek ChinoJohnny [place] [facility] 8 12:41:47 Polyp at cervical os 963406896 Completed 201605/14/2018 Alek Ch[place]Johnny [place] [facility] 8 12:41:52 Benign gestation al thrombocy topenia 051087052 Active 2016 KRUNAL Maria, [place] - [facility] 7 16:38:33 Benign gestation al thrombocy topenia 607857162 Completed 2016 Shama Kelly [place] null, [place] - [facility] 7 16:38:33 HPV - Human papilloma virus test positive Completed KRUNAL [place], [place] [facility] 7 16:38:33 History of uterine cervix surgery [id number] Completed LEEP [place]NAL [place] [facility] 7 16:38:33 Female steriliza tion Active 2016 Alek Johnny pierce, [place] - [facility] 7 18:12:37 Problem Notes None recorded. Procedures Surgical History Date Name Laterality Status Provider Name and Address Organization Details Recorded Time 7 Tubal Ligation completed Shama Kelly [place] - [facility] 05/31/2017 10:43:34 7 Date of Last Pap Smear completed Shama Kelly [place] [facility] 05/08/2017 16:41:39 5 LEEP completed Shama Kelly [place] [facility] 08/28/2016 14:26:06 Imaging Results Imaging Date Name Status LastModified by Organiz ation Details LastModified Time 03/05/2017 non-stress test completed [facility] [address] [place], [address], 03/14/2017 11:16:58 03/13/2017 non-stress test completed [facility] ([facility] [address] [place], [address], 03/14/2017 11:16:58 03/19/2017 non-stress test completed [facility] [address] [place], [address], 03/21/2017 14:39:37 03/26/2017 imaging/diag nostic result completed [facility] [address] [place], [address], 03/28/2017 15:48:40 Procedure Notes None recorded. Medical Equipment None Reported. Allergies Allergen ID Allergen Name Allergen Category Reaction Reaction Severity Criticality Documentation Date Start Date Code Code System Note Provider Name and Address Organization Details Recorded Time 33567 latex environme nt,medica tion rash mild Not available 08/28/2016 27137 91 RxNorm Not Available Not Available Not [...] Avai lable Vitals Date Recorded Body height Body mass index (BMI) Body weight Systolic blood pressure Diastolic blood pressure Provider Name and Address Organization Details Last Updated DateTime 05/14/2018 175.26 cm 17.4 kg/m2 77027.9 g 112 mm[Hg] 60 mm[Hg] Nicole Kirby MA [facility] 8 11:51:40 Date Recorded Body height Body mass index (BMI) Systolic blood pressure Diastolic blood pressure Provider Name and Address Organization Details Last Updated DateTime 03/21/2017 175.26 cm 21.1 kg/m2 114 mm[Hg] 74 mm[Hg] Shama Kelly MA [facility] 03/21/2017 12:45:08 Date Recorded Body weight Provider Name an d Address Organization Details Last Updated DateTime 03/21/2017 54495.23177 g Juanita Catherine MA [facility] 03/21/2017 13:11:02 Date Recorded Body height Body mass index (BMI) Systolic blood pressure Diastolic blood pressure Provider Name and Address Organization Details Last Updated DateTime 03/28/2017 175.26 cm 21.3 kg/m2 110 mm[Hg] 74 mm[Hg] Shama Kelly MA [facility] 03/28/2017 12:37:24 Date Recorded Body weight Provider Name an d Address Organization Details Last Updated DateTime 03/28/2017 45532.96454 g Alek Turner [facility] 017 13:36:19 Date Recorded Body height Body mass index (BMI) Body weight Provider Name and Address Organization Details Last Updated DateTime 05/08/2017 175.26 cm 18.8 kg/m2 49348.23 g Shaam Kelly MA [facility] 05/08/2017 16:41:24 Date Recorded Systolic blood pressure Diastolic blood pressure Provider Name and Address Organization Details Last Updated DateTime 05/08/2017 84 mm[Hg] 58 mm[Hg] Juanita Catherine MA [facility] 05/08/2017 16:52:18 Date Recorded Body height Body mass index (BMI) Body weight Systolic blood pressure Diastolic blood pressure Provider Name and Address Organization Details Last Updated DateTime 05/31/2017 175.26 cm 18.3 kg/m2 30423.45 g 102 mm[Hg] 70 mm[Hg] Shama Kelly MA [facility] 7 10:45:39 Social History Question Answer Notes LastModified by Organizat ion Details LastModified Time Tobacco Smoking Status Never Smoker Shama KRUNAL Kelly [facility], [place] - ON LICENSE OF [facility] 08/28/2016 14:24:13 Do You Have An Advance [...] not available 08/28/2016 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 None Information not available 08/28/2016 Mental Status None [...] High Blood Pressure N Breast Cancer N Thyroid Problems N Kidney or Bladder Problems N GI Problems N Depression N Blood Clots N Lung Disease N Acne N Breast Problem N Eating Disorder N Anemia N Anesthesia Complications N Headaches/Migraines N Anxiety Disorder Y Diabetes N Ovarian Cancer N Muscle, Joint, or Bone Problems N [...] LNP-S, PF, 30 mcg/0.3 mL dose 09/22/2020 nataliya [place] [facility] 04/01/2021 15:28:00 COVID-19, mRNA, LNP-S, PF, 30 mcg/0.3 mL dose 10/13/2020 nataliya [place] [facility] 04/01/2021 15:28:22 Tdap 01/26/2017 completed Not Available [facility] 10/18/2019 02:46:03 Past Encounters Encounter ID Performer Location Encounter Start Date Encounter Closed Date Diagnosis/Indication Diagnosis SNOMED-CT Code Diagnosis ICD10 Code Diagnosis Note [id number] MD Scarlett Heller ([employer]) [address] [place] [address] [id number] 0 08/28/2016 13:53:59 08/29/2016 12:37:37 Threatened miscarriage 78424310 O20.0 Advised nurse to get records. Wiii check bhcg levels and Ultrasound . Advised patient to go to ER if vaginal bleeding more than pad per hour, fever greater than 100.4, severe pelvic pain Morning sickness 6952262 6 O21.9 [id number] [facility] [address] [place] [address] [id number] 0 09/04/2016 16:24:48 09/06/2016 10:09:05 Routine care 242349456 Z34.91 Morning sickness 4962702 6 O21.9 [id number] [facility] [address] [place] [address] 06478-076 0 09/15/2016 16:03:48 09/18/2016 09:56:01 Normal 80246870 Z34.91 [id number] MD Scarlett Heller ([employer]) [address] [place] [address] 52302-504 0 10/11/2016 16:23:38 10/12/2016 13:03:27 Routine care 118286848 Z34.91 [id number] MD Scarlett Heller ([employer]) [address] [place] [address] 63839-480 0 11/08/2016 09:58:42 11/09/2016 12:29:17 Routine care 315328801 Z34.91 Mixed anxi ety and depressive disorder 916791567 F41.8 Denies suicidal [id number] MD Scarlett Heller ([employer]) [address] [place] [address] 50384-400 0 12/06/2016 11:03:47 12/07/2016 14:48:22 Routine care 387687533 Z34.91 [id number] MD Scarlett Heller ([employer]) [address] [place] [address] 55243-977 0 01/03/2017 11:04:04 01/05/2017 13:50:12 Routine care 950140248 Z34.91 Urinary tr act infectious disease 60001887 N39.0 counseled about it and informatio n handed to patient Acid reflux 622581631 K2 1.9 counseled about it. Counseled about elevation of head when lying down [id number] MD Scarlett Heller ([employer]) [address] [place] [address] 09792-903 0 01/09/2017 16:12:33 01/10/2017 16:04:44 Routine care 802396247 Z34.91 [id number] KRUNAL Shea ([employer]) [address] [place] [address] 15658-302 0 01/24/2017 10:00:44 01/25/2017 14:48:11 Routine care 041341305 Z34.83 Diabetes m ellitus screening 632747179 Z13.1 Z13.9 Polyp of cervix 92692725 N84.1 no active bleeding at this time, no intercours e, will remove [id number] KRUNAL Shea ([employer]) [address] [place] [address] [id number] 0 02/12/2017 10:18:28 02/13/2017 14:42:28 Benign gestational thrombocytopenia 018909121 D69.59 Routine an tenatal care 009776753 Z34.83 Absent blo od vessel in umbilical cord 512151225 Q27.8 Antepartum testing weekly starting at 32 weeks Polyp at cervical os 248 973968 N84.1 [id number] [facility] ([employer]) [address] [place] [address] 28396-303 0 02/28/2017 10:58:17 02/28/2017 16:21:39 Routine care 114873776 Z34.83 Benign ges tational thrombocytopenia 350334838 D69.59 Polyp at cervical os 248 021500 N84.1 Absent blo od vessel in umbilical cord 352016799 Q27.8 Antepartum testing weekly starting at 32 weeks [id number] Alek Pantoja ([employer]) [address] [place] [address] [id number] 0 03/14/2017 10:28:59 03/14/2017 11:52:56 Routine care 146722643 Z34.83 Benign ges tational thrombocytopenia 077005455 D69.59 Polyp at cervical os 248 005613 N84.1 Absent blo od vessel in umbilical cord 341656198 Q27.8 Antepartum testing weekly starting at 32 weeks [id number] Alek Pantoja ([employer]) [address] [place] [address] [id number] 0 03/21/2017 11:53:53 03/21/2017 16:39:15 Routine care 680592020 Z34.83 Polyp at cervical os 248 216265 N84.1 Absent blo od vessel in umbilical cord 432885948 Q27.8 Antepartum testing weekly starting at 32 weeks [id number] Alek Pantoja ([employer]) [address] [place] [address] [id number] 0 03/28/2017 11:57:54 03/28/2017 14:14:49 Routine care 799767780 Z34.83 Benign ges tational thrombocytopenia 695092020 D69.59 Polyp at cervical os 248 408115 N84.1 Absent blo od vessel in umbilical cord 398522823 Q27.8 Antepartum testing weekly starting at 32 weeks [id number] Alek Pantoja ([employer]) [address] [place] [address] [id number] 0 05/08/2017 15:42:31 05/08/2017 17:38:33 care 330670614 Z39.2 Plan for tubal ligation 05/11/2017 Generalize d anxiety disorder 12299819 F41.1 Polyp of corpus uteri 11 168273 N84.0 Patient brought in passed tissue, sent to pathology [id number] Alek Pantoja ([employer]) [address] [place] [address] [id number] 0 05/31/2017 09:51:00 05/31/2017 16:16:25 Surgical follow-up 575391871 Z09 Female sterilization 608 04951 Z30.2 Patient instructed on post-opera tive exercises to perform at home. [id number] Alek Turner Scarlett ([employer]) [address] [place] [address] 05/14/2018 11:22:31 05/14/2018 12:47:11 Gynecologic examination 83618713 Z01.411 Female sterilization 608 24079 Z30.2 Dysmenorrhea 338387406 N 94.6 Endometrio sis (clinical) 344193149 N80.9 Family eron nning surveillance 305712496 Z30.09 Anxiety 39190449 F41.9 Health Concerns Section Related Observation LastModified by Organization Detai ls LastModified Time None Recorded Concern Status LastModified by Organization Details LastModified Time None Recorded Advance Directives Directive N: Payers Encounter Date Sequence Insurance Name Policy Number Policy Gooden Covered Member ID Gooden Member ID Guarantor Name 03/21/2017 1 [facility] (MEDICAID HM) [id number] Emerita Bah [id number] Emerita Bah 03/28/2017 1 [facility] [place] ([place] [id number] 003 Emerita Bah [id number] Emerita Bah 05/08/2017 1 [facility] (MEDICAID HMO) [id number] 003 Emerita Bah [id number] Emerita Bah 05/31/2017 1 [employer] [facility] [place] [id number] 003 Emerita Bah [id number] Emerita Bah 05/14/2018 1 [facility] [id number] Emerita Bah [id number] Emerita Bah Notes Date Note Type Note [...] vc; NST on 03-13-17 reactive. Would like [facility] - papers were signed today SILVANA Sykes 03/21/2017 18:05:02 03/28/2017 text/html OB ProblemReport ed [...] at 37wks 2d gestation presents for ANI. SILVANA Sykes 03/29/2017 14:27:18 05/08/2017 text/html VisitReported bypatient.Context:post complications: fever Associated Symptoms:laceration well healed; no constipation; no fecal incontinence; no dysuria; no urinary incontinence; no fever; no problems; no mastitis;abnormal bleeding;pelvic pain; Passed large piece of tissue yesterday, symptoms have resovled. SILVANA Sykes 05/08/2017 17:41:15 05/31/2017 text/html Post-OpReported bypatient.Associated Symptoms:incision healing well; no fatigue; normal appetite; normal bowel function; no constipation; no nausea; no emesis; pain improving; no pain; no fever; no bleeding; no lower extremity edema/pain; no dysuria/urinary symptoms 32 yo female here today for post-op follow up for tubal ligation. SILVANA Sykes 05/31/2017 18:20:48 05/14/2018 text/html Annual GYNReport ed [...] with irregular spotting accompanied by dysmenorrhea. Alek Turner [facility], [place] - ON LICENSE OF [facility] 05/15/2018 18:43:52 OBGyn Episode Ob Episode Information Episode Created Date Number of Fetuses Patient Bloodtype Patient rh Status Prepregnancy Weight lbs Domestic Partner Domestic Partner Phone Father Name Keno Terminal Operator Status 08/28/20 16 1 CLOSED Fetus Data First Name Last Name Admitted to NICU Weight (g) Sex Living Outcome Pediatric Complications Fetus ID Race Codes Race Delivery Type 3656.85 8704 M Full Term [id number] Dain Calculation Initial Dain Date Initial Exam [...] Domestic Partner Domestic Partner Phone Father Name Keno Terminal Operator Status 08/28/20 16 1 O Positive 125 bel amy a to z ped. CLOSED Fetus Data First Name Last Name Admitted to NICU Weight (g) Sex Living Outcome Pediatric Complications Fetus ID Race Codes Race Delivery Type Shireen Bah false 3373.59 05 M true Full Term 00162 2106-3 White Vaginal Problems Problem Notes 12/06/16 baby boy, Jayro Bah, yes to circ, bottle, PEDS, Dr. Ramirez, [facility] [place], Pt wants PPBTL, papers signed gbs negative. 03/28/2017 mds Problem Name Start Date End Date Resolution Snomed Code Not e HPV - Human papillomavirus test positive 634566160 History of uterine cervix surgery 478019162561156 LEEP Absent blood vessel in umbilical cord 01/09/2017 756068760 2 VESSEL CORD Benign gestational thrombocytopenia 02/12/2017 050920251 Dain Calculation Initial Dain Date Initial Exam Date Initial Exam Provider Initial Ultrasound Date Last Menstrual Period Date Ultra Sound Weeks Gestation 04/16/2017 08/28/2016 chucky 08/29/2016 07/03/2016 7 Eighteen To Twenty Week Dain Update Ultra Sound Date Fundal Height At Umbil Quickening Date Ultra Sound Latest Weeks Gestation Final Dain Confirmed By Final Dain Confirmed Date Final Dain Date Ultra Sound Latest Days Gestation 08/29/20 16 7 chucky 08/29/2016 04/16/20 17 1 Pre- Flowsheet Flowsheet Date 08/28/2016 Wilcox Score Blood Edema Fundus Height Fundus Units Glucose Ketones Leukocytes Nitrite Labor Signs Protein Cervic Dilation Cervic Effacement Cervic Station Type Weight in lbs Pre/Post Dialysis Refused 123.919717535370 BP Diastolic BP Location Tested BP Systolic BP Type 52 92 sitting Fetus Heart Rate Present Fetus Movement Comments Flowsheet Date 09/04/2016 Wilcox Score Blood Edema Fundus Height Fundus Units Glucose Ketones Leukocytes Nitrite Labor Signs Protein Cervic Dilation Cervic Effacement Cervic Station neg none none trace none 1+ Type Weight in lbs Pre/Post Dialysis Refused 121.646481775241 BP Diastolic BP Location Tested BP Systolic [...] Type Weight in lbs Pre/Post Dialysis Refused 117.292492766732 BP Diastolic BP Location Tested BP Systolic [...] Type Weight in lbs Pre/Post Dialysis Refused 121.931058583677 BP Diastolic BP Location Tested BP Systolic [...] Type Weight in lbs Pre/Post Dialysis Refused 124.991097125050 BP Diastolic BP Location Tested BP Systolic [...] Type Weight in lbs Pre/Post Dialysis Refused 127.533953835068 BP Diastolic BP Location Tested BP Systolic [...] Type Weight in lbs Pre/Post Dialysis Refused 128.446081816722 BP Diastolic BP Location Tested BP Systolic [...] to L & D. Notified Dr. Turner road traffic controller and called him in to the room [...] Type Weight in lbs Pre/Post Dialysis Refused 132.305683229442 BP Diastolic BP Location Tested BP Systolic [...] Type Weight in lbs Pre/Post Dialysis Refused 134.947969107673 BP Diastolic BP Location Tested BP Systolic [...] Type Weight in lbs Pre/Post Dialysis Refused 137.536572858553 BP Diastolic BP Location Tested BP Systolic BP Type 52 98 sitting Fetus Heart Rate Present A 135 Present Fetus Movement A Yes Comments Emeirta reports mild crampin g, otherwise no complaints. NST for 2-vessel cord. 2 wks ANI, 33.5 wks. Flowsheet Date 03/14/2017 Wilcox Score Blood Edema Fundus Height Fundus Units Glucose Ketones Leukocytes Nitrite Labor Signs Protein Cervic Dilation Cervic Effacement Cervic Station neg none 34 cm none negative Josiah Vera neg Type Weight in lbs Pre/Post Dialysis Refused 141.707580974723 BP Diastolic BP Location Tested BP Systolic [...] Station neg none 35 cm none negative Maricopa Vera neg 1cm 70% -1 Type Weight in lbs Pre/Post Dialysis Refused 143.955310304412 BP Diastolic BP Location Tested BP Systolic [...] Type Weight in lbs Pre/Post Dialysis Refused 144.697471838840 BP Diastolic BP Location Tested BP Systolic BP Type 74 110 sitting Fetus Heart Rate Present A 144 Present Fetus Movement A Yes Comments to L&D Flowsheet Date 05/08/2017 Wilcox Score Blood Edema Fundus Height Fundus Units Glucose Ketones Leukocytes Nitrite Labor Signs Protein Cervic Dilation Cervic Effacement Cervic Station Type Weight in lbs Pre/Post Dialysis Refused 127.829359713079 BP Diastolic BP Location Tested BP Systolic [...] At Estimated Date of Delivery false Thalassemia (Bahamian, Hungarian, Mediterranean, Or Background): MCV < 80 false Neural Tube Defect (Meningomyelocele, Spina Bifi da, Or Anencephaly) false Congenital Heart Defect false Down Syndrome false Camron-Sachs (eg, Uatsdin, Cajun, Angolan-Chenango) f alse Farooq Disease false Sickle Cell Disease Or Trait () false Hemophilia Or Other Blood Disorders false Muscular Dystrophy false Cystic Fibrosis false Mccall's Chorea false Mental Retardation/Autism false If Yes, [...] By 09/04/2016 Anticipated course o f care susyuyyshabnamu 09/04/2016 Alcohol susyuyyshabnamu 09/04/2016 Intimate partner violence sv uyysahbnamu 09/04/2016 Environmental/work hazards s [facility] 09/04/2016 Screening for aneuploidy [facility] 09/04/2016 Nutrition counseling ; special diet; dietary precautions (mercury, listeriosis) [facility] 09/04/2016 Childbirth classes/h ospital facilities [facility] 09/04/2016 HIV and other routin e tests [facility] 09/04/2016 Risk factors identif ied by history [facility] 09/04/2016 Weight gain counseling [facility] 09/04/2016 Exercise [facility] 09/04/2016 Teratogens [facility] 09/04/2016 Use of any medicatio ns (including supplements, vitamins, herbs, or OTC drugs) [facility] 09/04/2016 bottle, pt may b Dwight evans 12/06/16 [facility] 09/04/2016 Sexual activity [facility] 09/04/2016 Tobacco/smoking cess ation counseling (ask, advise, assess, assist, and arrange) [facility] 09/04/2016 Illicit/recreational drugs s [facility] 09/04/2016 Dental care [facility] 09/04/2016 Travel [facility] 09/04/2016 Seat belt use [facility] 09/04/2016 Indications for ultrasonography [facility] 09/04/2016 Avoidance of saunas or hot tubs [facility] 09/04/2016 Toxoplasmosis precau tions (cats/raw meat) [facility] Second Trimester Discussed Date Discussion Item Discussion Note Discuss ed By 12/06/[address] care provider Dr. Ramirez, [facility], Balta Easley 12/06/2016 family planning/tubal sterilization 03/14/17 PPBTL, papers signed today, marie-leah 12/06/2016 Abnormal lab values [facility] 12/06/2016 Signs and symptoms o f labor [facility] 12/06/2016 [facility] 12/06/2016 Tobacco/smoking cess ation counseling (ask, advise, assess, assist, and arrange) [facility] Third Trimester Discussed Date Discussion Item Discussion Note Discuss ed By 03/14/2017 Anesthesia plans epidural 03/14/2017 Circumcision baby boy, yes to circ cbrads haw5 03/14/2017 bottle 03/28/2017 Labor signs wtc/wlb given [facility] Delivery Information Delivery Date Delivery Type Labor Anesthesia Weeks Gestation Incision Type Labor Labor Length Hrs Delivered By Post Complications Tubal Sterilization Discharge Date Comments 7 Maykelly [facility] id[facility].[address] Turner None true 04/01/2017 Dr. James [facility] [place] Discharge Information Feeding Method Contraceptive Method Maternal HG B and HCT Levels Bottle PPBTL scheduled for 05/11/17
--- OUTSIDE RECORDS SUMMARY | 2025-01-09 15:01 | XMS_ITS | Encounter Summary ---
Author Organization [facility] Address [address] [place] [address] Care Team Providers Care Property Custodian Name Role Phone Marley Mendoza Primary Care Provider [phone] Encounter Details Date Type Department Care Team (Late st Contact Info) Description 05/30/2024 XVionicst Message Enc [facility] Family [facility] - [place] [address] [place] [address] [facility] Provider Lab results Social History Tobacco Use [...] documented as of this encounter Care Teams Property Custodian Relationship Specialty Start Date End Date Marley Mendoza APNP [address] [place] [address] PCP - General NURSE PRACTITIONER 10/30/19 documented as of this encounter
--- OUTSIDE RECORDS SUMMARY | 2025-01-09 15:01 | XMS_ITS | Encounter Summary ---
Author Organization [facility] Address [address] [place] [address] Care Team Providers Care Hearing Therapist Name Role Phone Marley Mendoza Primary Care Provider [phone] Encounter Details Date Type Department Care Team (Late st Contact Info) Description 10/27/2022 Click With Me Now [facility] Patient Accounts [address] [place] [address] [facility] Provider Monthly Credit Card Payment Social History [...] Total Score: 1 11/30/19 21 1:37 PM SENIOR DENTIST documented as of this encounter Care Teams Hearing Therapist Relationship Specialty Start Date End Date Marley Mendoza APNP [address] [place] [address] PCP - General NURSE PRACTITIONER 10/30/19 documented as of this encounter
[2025-01-09 15:17] LABS: EDSTREPNEGPOS1 Negative (Negative)
== END 2025-01-09 15:17 | disposition home or self-care (01) ==
PROVIDERS: Emergency Provider Nurse Practitioner; PCP Nurse Practitioner Adult Health
DX: J02.9 Acute pharyngitis, unspecified (principal); F12.90 Cannabis use, unspecified, uncomplicated; F41.9 Anxiety disorder, unspecified
CPT/HCPCS: 87081; 87880; 99213; G0463